=== PATIENT | female | born 1940 | race Caucasian/White ===

== ENCOUNTER → 2017-02-18 | Outpatient (CLI) | payer MEDICARE, BC ==
--- NOTE | 2017-02-18 16:43 | BD ---
EXAMINATION TYPE: MG DEXA axial skeleton. DATE OF EXAM: 02/18/2017 3:20 PM COMPARISON: NONE CLINICAL HISTORY: 76-year-old female osteoporosis Height: 61.75 Weight: 161.9 FRAX RISK QUESTIONS: Alcohol (3 or more units per day): no Family History (Parent hip fracture): no Glucocorticoids (More than 3mos): no (Ex: prednisone, prednisolone, methylprednisolone, dexamethasone, and hydrocortisone). History of Fracture in Adulthood: yes Secondary Osteoporosis: 1. Type 1 Diabetes: no 2. Hyperthyroidism: no 3. Menopause before 45: yes 4. Malnutrition: no 5. Chronic liver disease: no Rheumatoid Arthritis: yes Current Tobacco Use: no/ stopped 3 years RISK FACTORS HISTORY OF: Hip Fracture (Right/Left): no Spine Fracture: no History of Wrist Fracture: no Surgery to Spine/Hip(right/left)/Wrist (right/left): lumbar spine surgery 30 years ago [id number] Family History of Osteoporosis: no Active: yes Diet low in dairy products/other sources of calcium: no Postmenopausal woman: age 39 Lost more than 2 inches in height since high school: yes Frequent falls: no Poor Health: no Adrenal Insufficiency: no MEDICATIONS: blood pressure, sleep aid, vitamins Additional History: EXAM MEASUREMENTS: Bone mineral densitometry was performed using the [employer] System. Bone mineral density as measured about the Lumbar spine is: ----- L1-L4(G/cm2): 1.394 T Score Values are as follows: ----- L2: 1.7 ----- L3: 1.4 ----- L4: 1.9 ----- L1-L4: 1.8 Bone mineral density has: decreased -4.2 % since study of: 02.18.2013 Bone mineral density about the R hip (g/cm2): 0.777 Bone mineral density about the L hip (g/cm2): 0.760 T Score values are as follows: -----R Neck: -1.9 -----L Neck: -2.0 -----R Intertrochanter: -2.8 -----L Intertrochanter: -2.6 Bone mineral density has: decreased-4.4 % since study of: 02.18.2013 IMPRESSION: Osteopenia as indicated by T score values in both hips. There is slightly increased risk of fracture and the patient may be considered for treatment. Re-Screen 2-5 years. NOTE: T-SCORE=SD OF THE YOUNG ADULT MEAN.
--- NOTE | 2017-02-21 13:13 | MM ---
Reason for exam: screening (asymptomatic). Last mammogram was performed 1 year and 1 month ago. History: Patient is postmenopausal. Physical Findings: A clinical breast exam by your physician is recommended on an annual basis and results should be correlated with mammographic findings. MG Screening Mammo w CAD Bilateral CC and MLO view(s) were taken. Prior study comparison: January 13, 2016, bilateral MG screening mammo w CAD. January 07, 2015, bilateral MG screening mammo w CAD. November 16, 2012, bilateral digital screening mammo w/CAD. There are scattered fibroglandular densities. No significant changes when compared with prior studies. ASSESSMENT: Negative, BI-RAD 1 RECOMMENDATION: Routine screening mammogram of both breasts in 1 year.
== END | disposition home or self-care (01) ==
LOC: RADMAMWWP 14:27
PROVIDERS: ATTEND Obstetrics & Gynecology
DX: Z12.31 Encounter for screening mammogram for malignant neoplasm of breast (principal); M85.80 Other specified disorders of bone density and structure, unspecified site
CPT/HCPCS: 77080; G0202

== ENCOUNTER → 2017-06-07 | Outpatient (CLI) | payer MEDICARE, BC ==
--- NOTE | 2017-06-07 11:42 | FL ---
COMPARISON: NONE DATE OF EXAM: 06/07/2017 HISTORY: Dysphasia A number of thin and thick substances were ingested under the care of the department of speech pathol ogy. There is deep penetration with thin barium and a trace of aspiration. Significant residuals are noted. Fluoroscopy time 1 minute 39 seconds. IMPRESSION: 1. Deep penetration with thin barium and a trace of aspiration.
== END | disposition home or self-care (01) ==
LOC: RADFLMAIN 10:53
PROVIDERS: ATTEND Surgery
DX: R13.10 Dysphagia, unspecified (principal)
CPT/HCPCS: 74230

== ENCOUNTER → 2017-07-11 | Outpatient (CLI) | payer MEDICARE, BC ==
[2017-07-11 10:40] LABS: Basophils # (A) 0.1 k/uL (0-0.2); Basophils % (A) 1 %; CH 28.2; CHCM 32.5; Eosinophils # (A) 0.3 k/uL (0-0.7); Eosinophils % (A) 4 %; HCT 40.6 % (34.0-46.0); HDW 2.65; HGB 13.1 gm/dL (11.4-16.0); Luc # (Auto) 0.18; Luc % (Auto) 2; Lymphocytes # (A) 1.6 k/uL (1.0-4.8); Lymphocytes % (A) 18 %; MCHC 32.2 g/dL (31.0-37.0); MCV 87.1 fL (80.0-100.0); Mean Platelet Volume 6.9; Monocytes # (A) 0.6 k/uL (0-1.0); Monocytes % (A) 6 %; Neutrophils # (A) 6.1 k/uL (1.3-7.7); Neutrophils % (A) 70 %; RBC 4.66 m/uL (3.80-5.40); RDW 14.5 % (11.5-15.5); WBC 8.8 k/uL (3.8-10.6); WBC (Perox) 8.61
[2017-07-11 12:54] LABS: Erythrocyte Sedimentation Rate 28 mm/hr (0-20)
== END | disposition home or self-care (01) ==
LOC: LABWHC1 09:27
PROVIDERS: ATTEND Physical Medicine & Rehabilitation
DX: M19.011 Primary osteoarthritis, right shoulder (principal); M19.012 Primary osteoarthritis, left shoulder; M48.06 Spinal stenosis, lumbar region; M43.16 Spondylolisthesis, lumbar region; M51.16 Intervertebral disc disorders with radiculopathy, lumbar region; M47.817 Spondylosis without myelopathy or radiculopathy, lumbosacral region; M41.86 Other forms of scoliosis, lumbar region; M46.1 Sacroiliitis, not elsewhere classified; R20.2 Paresthesia of skin
CPT/HCPCS: 36415; 85025; 85652; 86140

== ENCOUNTER → 2017-11-23 | Outpatient (CLI) | payer MEDICARE, BC ==
--- NOTE | 2017-11-23 12:18 | FL ---
EXAMINATION TYPE: FL barium swallow w video DATE OF EXAM: 11/23/2017 MODIFIED SWALLOW / DEGLUTITION STUDY CLINICAL HISTORY: Known oculopharyngeal dystrophy. TECHNIQUE: Deglutition study is performed utilizing thin liquid barium, honey and nectar thick liqui d barium, barium thick pudding, and barium coated cracker. A total of 2.24 minutes of fluoroscopic ti me was utilized during procedure. Approximately 15 cine sequences are acquired, 0 however are sent to PACS station. COMPARISON: Prior swallow study report June 07, 2017.. FINDINGS: The oral phase shows satisfactory initiation. There is satisfactory mastication seen with s olid modalities tested. There is markedly abnormal hypopharyngeal phase as there is poor to absent e piglottic inversion. Severe pharyngeal residuals are seen more prominent with more viscous modalities . There is deep penetration through vocal cords which clears with thin liquid barium and solid modali ties. Findings do not improve or are worse with chin tuck procedure. No pasquale aspiration is seen. IMPRESSION: Findings correlate with patient history as there is severe hypopharyngeal dysmotility cau sing severe residuals and penetration without pasquale aspiration. Please refer to speech therapist notes for further details if necessary.
== END | disposition home or self-care (01) ==
LOC: RADFLMAIN 11:15
PROVIDERS: ATTEND Psychiatry & Neurology Neurology
DX: J39.2 Other diseases of pharynx (principal)
CPT/HCPCS: 74230

== ENCOUNTER 2018-04-17 10:32 | Emergency (ER) | payer MEDICARE, BC ==
--- NOTE | 2018-04-17 12:05 | ED ---
Extremity Problem HPI - General Chief complaint: Extremity Problem,Nontraumatic Stated complaint: lt leg swelling Time Seen by Provider: 04/17/18 11:02 Source: patient Mode of arrival: wheelchair Limitations: no limitations - History of Present Illness Initial comments: The patient is a 77-year-old female who presents with a chief complaint of left lower extremity swelling. 5-6 weeks ago, the patient sustained a pelvic fracture that was found on MRI. Patient states that she has a venous duplex scheduled however she does not think that she will be able to wait for her appointment. Patient states that she is having sharp, and aching pain in the lower extremity. She cannot identify an inciting incident. There are no aggravating or alleviating factors. Timing is been constant for 3 weeks. Patient does not have any history of DVTs or PEs. She is not on any blood thinners. - Related Data Home Medications Medication Instructions Recorded Confirmed Amitriptyline HCl [Elavil] 50 mg PO HS 01/26/16 04/17/18 Hydrochlorothiazide [Hydrodiuril] 25 mg PO DAILY 01/26/16 04/17/18 amLODIPine BESYLATE [Norvasc] 10 mg PO DAILY 01/26/16 04/17/18 Aspirin EC [Ecotrin Low Dose] 81 mg PO DAILY 04/17/18 04/17/18 Cholecalciferol [Vitamin D3] 1,000 unit PO DAILY 04/17/18 04/17/18 Escitalopram [Lexapro] 5 mg PO DAILY 04/17/18 04/17/18 Glucosamine/[place] A Sod [[place] 1 tab PO DAILY 04/17/18 04/17/18 Bi-Flex Caplet] Hydrocodone/Acetaminophen [[place] 1 tab PO TID PRN 04/17/18 04/17/18 5-325] Metoprolol Succinate (ER) [Toprol 25 mg PO DAILY 04/17/18 04/17/18 Xl] Previous Rx's Medication Instructions Recorded Cephalexin [Keflex] 500 mg PO BID #20 cap 04/17/18 Allergies Allergy/AdvReac Type Severity Reaction Status Date / Time Sulfa (Sulfonamide Allergy Unknown Verified 04/17/18 11:32 Antibiotics) terbinafine [From Lamisil] Allergy Unknown Verified 04/17/18 11:32 Review of Systems ROS Statement: Those systems with pertinent positive or pertinent negative responses have been documented in the HPI. ROS Other: All systems not noted in ROS Statement are negative. Musculoskeletal: Reports: joint swelling Hematological/Lymphatic: Reports: easy bruising Past Medical History Past Medical History: Hypertension Additional Past Medical History / Comment(s): migraines History of Any Multi-Drug Resistant Organisms: None Reported Past Surgical History: Back Surgery, Hysterectomy, Orthopedic Surgery, Tonsillectomy Additional Past Surgical History / Comment(s): eye lid surgery, right shoulder Past Psychological History: No Psychological Hx Reported Smoking Status: Former smoker Past Alcohol Use History: Rare Past Drug Use History: None Reported General Exam Limitations: no limitations General appearance: alert, in no apparent distress Head exam: Present: atraumatic, normocephalic Eye exam: Present: normal appearance ENT exam: Present: normal exam Neck exam: Present: normal inspection Respiratory exam: Present: normal lung sounds bilaterally. Absent: respiratory distress, wheezes Cardiovascular Exam: Present: regular rate, normal rhythm GI/Abdominal exam: Present: soft. Absent: distended, tenderness Rectal exam: Present: deferred Extremities exam: Present: pedal edema, other (Patient has what appears to be a blood blister on the left medial aspect of her lower extremity. The surrounding area is erythematous. There is no fluctuance noted.) Back exam: Present: normal inspection Neurological exam: Present: alert, oriented X3 Psychiatric exam: Present: normal affect, normal mood Course Vital Signs 04/17/18 04/17/18 10:36 12:13 Temperature 98.3 F Pulse Rate 88 84 Respiratory 20 18 Rate Blood Pressure 127/72 152/70 O2 Sat by Pulse 98 98 Oximetry Medical Decision Making - Medical Decision Making Patient presents with a chief complaint of left lower extremity edema. On initial evaluation, vitals are stable, patient is in no acute distress. Patient has a history of a recent pelvic fracture, but states her pain is getting better. She is ambulatory. Patient will be evaluated with venous duplex of the left lower extremity. 1:40 PM Lab evaluation this patient is unremarkable except for a mild leukocytosis. Lower extremity Dopplers do not show any evidence of DVT however there is some inflammatory skin changes noted. At this time, the patient is stable for discharge. She was prescribed Keflex for treatment of suspected cellulitis. She was instructed to follow up with primary care in 1-2 days, return to the emergency department if symptoms worsen or change. - Lab Data Result diagrams: 04/17/18 12:12 04/17/18 12:12 Lab Results 04/17/18 04/17/18 04/17/18 Range/Units 12:12 12:12 12:12 WBC 11.0 H (3.8-10.6) k/uL RBC 3.90 (3.80-5.40) m/uL Hgb 11.1 L (11.4-16.0) gm/dL Hct 32.9 L (34.0-46.0) % MCV 84.5 (80.0-100.0) fL MCH 28.5 (25.0-35.0) pg MCHC 33.8 (31.0-37.0) g/dL RDW 16.0 H (11.5-15.5) % Plt Count 414 (150-450) k/uL Neutrophils % 69 % Lymphocytes % 20 % Monocytes % 7 % Eosinophils % 2 % Basophils % 1 % Neutrophils # 7.6 (1.3-7.7) k/uL Lymphocytes # 2.2 (1.0-4.8) k/uL Monocytes # 0.7 (0-1.0) k/uL Eosinophils # 0.2 (0-0.7) k/uL Basophils # 0.1 (0-0.2) k/uL Anisocytosis Slight PT 11.0 (9.0-12.0) sec INR 1.1 (<1.2) Sodium 137 (137-145) mmol/L Potassium 3.7 (3.5-5.1) mmol/L Chloride 98 (98-107) mmol/L Carbon Dioxide 26 (22-30) mmol/L Anion Gap 13 mmol/L BUN 11 (7-17) mg/dL Creatinine 0.51 L (0.52-1.04) mg/dL Est GFR (CKD-EPI)AfAm >90 (>60 ml/min/1.73 sqM) Est GFR (CKD-EPI)NonAf >90 (>60 ml/min/1.73 sqM) Glucose 106 H (74-99) mg/dL Calcium 9.4 (8.4-10.2) mg/dL Disposition Clinical Impression: Cellulitis Disposition: HOME SELF-CARE Condition: Good Prescriptions: Cephalexin [Keflex] 500 mg PO BID #20 cap Is patient prescribed a controlled substance at d/c from ED?: No Referrals: Kamari Mayfield DO [Primary Care Provider] - 1-2 days
[2018-04-17 12:30] LABS: Anisocytosis Slight; Basophils # (A) 0.1 k/uL (0-0.2); Basophils % (A) 1 %; Eosinophils # (A) 0.2 k/uL (0-0.7); Eosinophils % (A) 2 %; HCT 32.9 % (34.0-46.0); HGB 11.1 gm/dL (11.4-16.0); Lymphocytes # (A) 2.2 k/uL (1.0-4.8); Lymphocytes % (A) 20 %; MCH 28.5 pg (25.0-35.0); MCHC 33.8 g/dL (31.0-37.0); MCV 84.5 fL (80.0-100.0); Mean Platelet Volume 6.8; Monocytes # (A) 0.7 k/uL (0-1.0); Monocytes % (A) 7 %; Neutrophils # (A) 7.6 k/uL (1.3-7.7); Neutrophils % (A) 69 %; Platelet Count 414 k/uL (150-450)
[2018-04-17 12:39] LABS: Anion Gap 13 mmol/L; Blood Urea Nitrogen 11 mg/dL (7-17); Calcium 9.4 mg/dL (8.4-10.2); Carbon Dioxide 26 mmol/L (22-30); Chloride 98 mmol/L (98-107); Glucose 106 mg/dL (74-99); INR 1.1 (<1.2); Potassium 3.7 mmol/L (3.5-5.1); Sodium 137 mmol/L (137-145)
--- NOTE | 2018-04-17 13:07 | US ---
EXAMINATION TYPE: US venous doppler duplex LE LT DATE OF EXAM: 04/17/2018 12:36 PM COMPARISON: NONE CLINICAL HISTORY: 77-year-old female Pain. SIDE PERFORMED: Left TECHNIQUE: The lower extremity deep venous system is examined utilizing real time linear array sonog arelis with graded compression, doppler sonography and color-flow sonography. VESSELS IMAGED: External Iliac Vein (EIV) Common Femoral Vein Deep Femoral Vein Greater Saphenous Vein * Femoral Vein Popliteal Vein Small Saphenous Vein * Proximal Calf Veins (* superficial vessels) Left Leg: Negative for DVT Extensive subcutaneous edema left calf. IMPRESSION: No evidence for DVT within the left lower extremity imaged from the groin to the upper calf. Prominen t subcutaneous edema involving the left calf.
[2018-04-17 13:51] VITALS: BP 148/72; PULSE 80; RESP 16; TEMP 97.6
== END 2018-04-17 14:00 | disposition home or self-care (01) ==
LOC: EC 10:32
DX: L03.116 Cellulitis of left lower limb (principal); D72.829 Elevated white blood cell count, unspecified; I10 Essential (primary) hypertension; Z87.891 Personal history of nicotine dependence; Z79.82 Long term (current) use of aspirin; Z79.899 Other long term (current) drug therapy; Z88.2 Allergy status to sulfonamides; Z88.1 Allergy status to other antibiotic agents
CPT/HCPCS: 36415; 80048; 85025; 85610; 99284

== ENCOUNTER 2018-05-02 20:45 | Emergency (ER) | payer MEDICARE, BC ==
[2018-05-02 20:54] VITALS: RESP 18
[2018-05-02 21:42] LABS: Anisocytosis Slight; Basophils % (A) 1 %; Eosinophils # (A) 0.4 k/uL (0-0.7); Eosinophils % (A) 4 %; HCT 35.6 % (34.0-46.0); HGB 11.3 gm/dL (11.4-16.0); Lymphocytes # (A) 2.4 k/uL (1.0-4.8); Lymphocytes % (A) 27 %; MCH 27.5 pg (25.0-35.0); MCHC 31.7 g/dL (31.0-37.0); MCV 86.8 fL (80.0-100.0); Mean Platelet Volume 6.8; Monocytes # (A) 0.5 k/uL (0-1.0); Monocytes % (A) 6 %; Neutrophils # (A) 5.5 k/uL (1.3-7.7); Neutrophils % (A) 61 %; Platelet Count 378 k/uL (150-450); RDW 16.3 % (11.5-15.5)
[2018-05-02 21:54] LABS: ALT 22 U/L (9-52); AST 26 U/L (14-36); Albumin 4.1 g/dL (3.5-5.0); Alkaline Phosphatase 126 U/L (38-126); Anion Gap 13 mmol/L; Blood Urea Nitrogen 12 mg/dL (7-17); Calcium 9.7 mg/dL (8.4-10.2); Carbon Dioxide 26 mmol/L (22-30); Chloride 99 mmol/L (98-107); Glucose 106 mg/dL (74-99); Potassium 3.4 mmol/L (3.5-5.1); Sodium 138 mmol/L (137-145); Total Bilirubin 0.4 mg/dL (0.2-1.3); Total Protein 6.6 g/dL (6.3-8.2)
--- NOTE | 2018-05-02 22:47 | ED ---
Extremity Problem HPI - General Chief complaint: Extremity Problem,Nontraumatic Stated complaint: leg swelling Time Seen by Provider: 05/02/18 21:08 Source: patient Mode of arrival: wheelchair Limitations: no limitations - History of Present Illness Initial comments: This is a 78-year-old female who presents emergency department for left lower extremity swelling and mild redness. She states that she also noticed a little bit of kamari colored drainage from the wound on the medial aspect of her left lower leg. She was seen here a few weeks ago and given Keflex which she states improved the redness for a period and then it returned. She has been following with her primary doctor he was instructed her to use compression stockings for her edema in her lower extremity and also local wound care. She denies any fevers or chills. No significant increase in pain. No injuries. The patient did have a Doppler few weeks ago which was negative for DVT. - Related Data Home Medications Medication Instructions Recorded Confirmed Amitriptyline HCl [Elavil] 50 mg PO HS 01/26/16 05/02/18 Hydrochlorothiazide [Hydrodiuril] 25 mg PO DAILY 01/26/16 05/02/18 amLODIPine BESYLATE [Norvasc] 10 mg PO DAILY 01/26/16 05/02/18 Aspirin EC [Ecotrin Low Dose] 81 mg PO DAILY 04/17/18 05/02/18 Cholecalciferol [Vitamin D3] 1,000 unit PO DAILY 04/17/18 05/02/18 Escitalopram [Lexapro] 5 mg PO DAILY 04/17/18 05/02/18 Hydrocodone/Acetaminophen [[place] 1 tab PO TID PRN 04/17/18 05/02/18 5-325] Metoprolol Succinate (ER) [Toprol 25 mg PO DAILY 04/17/18 05/02/18 Xl] Previous Rx's Medication Instructions Recorded Clindamycin [Cleocin] 600 mg PO TID 7 Days #84 capsule 05/02/18 Allergies Allergy/AdvReac Type Severity Reaction Status Date / Time Sulfa (Sulfonamide Allergy Unknown Verified 05/02/18 21:48 Antibiotics) terbinafine [From Lamisil] Allergy Unknown Verified 05/02/18 21:48 Review of Systems ROS Statement: Those systems with pertinent positive or pertinent negative responses have been documented in the HPI. ROS Other: All systems not noted in ROS Statement are negative. Past Medical History Past Medical History: Hypertension Additional Past Medical History / Comment(s): migraines History of Any Multi-Drug Resistant Organisms: None Reported Past Surgical History: Back Surgery, Hysterectomy, Orthopedic Surgery, Tonsillectomy Additional Past Surgical History / Comment(s): eye lid surgery, right shoulder Past Psychological History: No Psychological Hx Reported Smoking Status: Former smoker Past Alcohol Use History: Occasional Past Drug Use History: None Reported General Exam - General Exam Comments Initial Comments: Constitutional: Awake alert Appears comfortable Head: Normocephalic atraumatic Eyes: no conjunctival injection No scleral icterus EOMI Neck: No JVD Supple Heart: Regular rate rhythm normal S1-S2 no murmurs Lungs: Clear to auscultation bilaterally No wheezing No rales Abdomen: Soft nondistended nontender Extremities: Is pitting edema to bilateral lower extremities. Worse on the left. There is a circular ulceration to the medial aspect of the left lower extremity that measures approximate 4 cm in length. There is an overlying eschar to this area. There is no drainage. There is no fluctuance or induration. There is a mild amount of erythema and warmth around this however this extends minimally around the lesion. DP pulses intact Radial pulses intact Neuro: A&Ox3 No focal neurologic deficits Psych: Appropriate mood and affect Limitations: no limitations Course Vital Signs 05/02/18 05/02/18 20:49 23:09 Temperature 98.3 F 97.0 F L Pulse Rate 89 98 Respiratory 18 18 Rate Blood Pressure 154/68 148/87 O2 Sat by Pulse 97 99 Oximetry Medical Decision Making - Medical Decision Making Is a 78-year-old female who presented for left lower Chev[place] swelling and redness. The patient does appear to have some increasing redness to that left lower extremity. I'm going to start on clindamycin GERD was on a course of Keflex. There is no leukocytosis. The patient has very minimal redness and thus I do not feel that admission is warranted at this time. She does need local wound care to be performed. I did give her instructions on how to perform this at bedside. She was told to follow-up with Dr. Cantu to see if she could get into wound care clinic. She's can follow-up with Dr. Mayfield as well. Instructed to use compression stockings and how to use them. All questions were answered. - Lab Data Result diagrams: 05/02/18 21:19 05/02/18 21:19 Lab Results 05/02/18 05/02/18 Range/Units 21:19 21:19 WBC 9.0 (3.8-10.6) k/uL RBC 4.10 (3.80-5.40) m/uL Hgb 11.3 L (11.4-16.0) gm/dL Hct 35.6 (34.0-46.0) % MCV 86.8 (80.0-100.0) fL MCH 27.5 (25.0-35.0) pg MCHC 31.7 (31.0-37.0) g/dL RDW 16.3 H (11.5-15.5) % Plt Count 378 (150-450) k/uL Neutrophils % 61 % Lymphocytes % 27 % Monocytes % 6 % Eosinophils % 4 % Basophils % 1 % Neutrophils # 5.5 (1.3-7.7) k/uL Lymphocytes # 2.4 (1.0-4.8) k/uL Monocytes # 0.5 (0-1.0) k/uL Eosinophils # 0.4 (0-0.7) k/uL Basophils # 0.0 (0-0.2) k/uL Anisocytosis Slight Sodium 138 (137-145) mmol/L Potassium 3.4 L (3.5-5.1) mmol/L Chloride 99 (98-107) mmol/L Carbon Dioxide 26 (22-30) mmol/L Anion Gap 13 mmol/L BUN 12 (7-17) mg/dL Creatinine 0.52 (0.52-1.04) mg/dL Est GFR (CKD-EPI)AfAm >90 (>60 ml/min/1.73 sqM) Est GFR (CKD-EPI)NonAf >90 (>60 ml/min/1.73 sqM) Glucose 106 H (74-99) mg/dL Calcium 9.7 (8.4-10.2) mg/dL Total Bilirubin 0.4 (0.2-1.3) mg/dL AST 26 (14-36) U/L ALT 22 (9-52) U/L Alkaline Phosphatase 126 (38-126) U/L Total Protein 6.6 (6.3-8.2) g/dL Albumin 4.1 (3.5-5.0) g/dL Disposition Clinical Impression: Cellulitis, Chronic wound of extremity Disposition: HOME SELF-CARE Condition: Stable Instructions: Wound Infection (ED), Chronic Wound Care (ED) Prescriptions: Clindamycin [Cleocin] 600 mg PO TID 7 Days #84 capsule Is patient prescribed a controlled substance at d/c from ED?: No Referrals: Kamari Mayfield DO [Primary Care Provider] - 1-2 days Saw Cantu MD [STAFF PHYSICIAN] - 1-2 days
[2018-05-02 23:13] VITALS: BP 148/87; PULSE 98; TEMP 97
== END 2018-05-02 23:12 | disposition home or self-care (01) ==
LOC: EC 20:45
DX: S81.802A Unspecified open wound, left lower leg, initial encounter (principal); L03.116 Cellulitis of left lower limb; R60.0 Localized edema; I10 Essential (primary) hypertension; Z87.891 Personal history of nicotine dependence; Z79.82 Long term (current) use of aspirin; Z79.899 Other long term (current) drug therapy; Z88.2 Allergy status to sulfonamides; Z88.8 Allergy status to other drugs, medicaments and biological substances
CPT/HCPCS: 36415; 80053; 85025; 99283

== ENCOUNTER 2018-12-13 10:44 | Inpatient (IN) | payer MEDICARE, BC ==
[2018-12-13] MEDS ORDERED: HYDROcodone/APAP 5-325MG 1 EACH TAB PO STA (11:27)
--- NOTE | 2018-12-13 11:35 | ED ---
General Adult HPI - General Chief complaint: Fall Stated complaint: Fall Time Seen by Provider: 12/13/18 10:58 Source: patient, RN notes reviewed Mode of arrival: wheelchair Limitations: no limitations - History of Present Illness Initial comments: 78-year-old female presents to the emergency department for a chief complaint of low back pain times one day. Patient states she slipped on ceramic tile and fell onto her buttock. Patient did not hit her head. Patient states her low back and tailbone hurts. She states she generally has low back pain and sees a pain specialist Dr. Vasquez for this. Patient takes [place] at home for pain. She states the pain is worsened since this fall. Patient states she is able to ambulate but it is painful to go from sitting to standing. Patient denies any numbness or tingling of the groin her buttock. Patient denies any bladder or bowel changes. Patient denies any shooting pain down the lower extremities or numbness or tingling down the lower extremity. Denies any lower extremity weakness. Patient states last [place] was over 4 hours ago. Patient has no other complaints at this time including shortness of breath, chest pain, abdominal pain, nausea or vomiting, headache, or visual changes. - Related Data Home Medications Medication Instructions Recorded Confirmed Amitriptyline HCl [Elavil] 50 mg PO HS 01/26/16 12/13/18 Hydrochlorothiazide [Hydrodiuril] 25 mg PO DAILY 01/26/16 12/13/18 amLODIPine BESYLATE [Norvasc] 10 mg PO DAILY 01/26/16 12/13/18 Cholecalciferol [Vitamin D3] 1,000 unit PO DAILY 04/17/18 12/13/18 Escitalopram [Lexapro] 5 mg PO DAILY 04/17/18 12/13/18 Hydrocodone/Acetaminophen [[place] 1 tab PO TID PRN 04/17/18 12/13/18 5-325] Metoprolol Succinate (ER) [Toprol 25 mg PO DAILY 04/17/18 12/13/18 Xl] Allergies Allergy/AdvReac Type Severity Reaction Status Date / Time Sulfa (Sulfonamide Allergy Unknown Verified 12/13/18 11:22 Antibiotics) terbinafine [From Lamisil] Allergy Unknown Verified 12/13/18 11:22 Review of Systems ROS Statement: Those systems with pertinent positive or pertinent negative responses have been documented in the HPI. ROS Other: All systems not noted in ROS Statement are negative. Past Medical History Past Medical History: Hypertension Additional Past Medical History / Comment(s): migraines,lt. leg wound History of Any Multi-Drug Resistant Organisms: None Reported Past Surgical History: Back Surgery, Hysterectomy, Orthopedic Surgery, Tonsillectomy Additional Past Surgical History / Comment(s): eye lid surgery, right shoulder Past Psychological History: No Psychological Hx Reported Smoking Status: Former smoker Past Alcohol Use History: Occasional Past Drug Use History: None Reported General Exam Limitations: no limitations General appearance: alert, in no apparent distress Head exam: Present: atraumatic, normocephalic, normal inspection Eye exam: Present: normal appearance, PERRL, EOMI. Absent: scleral icterus, conjunctival injection, periorbital swelling ENT exam: Present: normal exam, mucous membranes moist Neck exam: Present: normal inspection, full ROM. Absent: tenderness, meningismus, lymphadenopathy Respiratory exam: Present: normal lung sounds bilaterally. Absent: respiratory distress, wheezes, rales, rhonchi, stridor Cardiovascular Exam: Present: regular rate, normal rhythm, normal heart sounds. Absent: systolic murmur, diastolic murmur, rubs, gallop, clicks GI/Abdominal exam: Present: soft, normal bowel sounds. Absent: distended, tenderness, guarding, rebound, rigid, other (no ecchymosis or evidence of trauma ) Extremities exam: Present: normal capillary refill (Capillary refill less than 2 seconds and DP pulse 2+ and equal bilaterally), other (Sensation intact in BLE bilaterally, strength 5 out of 5 in lower extremities bilaterally) Back exam: Present: vertebral tenderness (Tenderness over the lower lumbar spine and sacral area). Absent: paraspinal tenderness, other (No ecchymosis or hematomas noted) Neurological exam: Present: alert, oriented X3, CN II-XII intact Psychiatric exam: Present: normal affect, normal mood Course Vital Signs 12/13/18 12/13/18 10:47 16:13 Temperature 98.1 F Pulse Rate 90 70 Respiratory 18 16 Rate Blood Pressure 133/59 120/58 O2 Sat by Pulse 98 94 L Oximetry - Reevaluation(s) Reevaluation #1: 12/13/18 17:20 Multiple conversations were facilitated between both MRI and and Dr. Lozano's office. Discussed with Karyna from MRI and is she spoke with Dr. Lozano's office personally. Unable to locate lot number of ear implant. She states that many of these similar ear implants are unsafe for MRI and without being able to obtain lot number patient cannot safely have this MRI. She states that they will be going through medical records from 1991 when ear implant was placed tomorrow to try to obtain more information. Patient does believe she had an MRI within the past few years 12/13/18 17:26 Dr. Rodriguez unable to document in the chart at this time due to computer malfunctions. However he did page Dr. Mayfield at 1620, 1630, and 1703. Dr. Mayfield was notified by phone of this admission. Dr. Rodriguez also spoke with JARED De Leon for orthopedics. At this time she recommends admission for observation with consult to Dr. Kraft. She does recommend medical admission. Medical Decision Making - Medical Decision Making 78-year-old female presents to the emergency department for a chief complaint of fall occurring yesterday. Patient complains of lumbar back pain as well as "tailbone pain." On exam patient is weightbearing. Does have some lumbar spine tenderness and sacral tenderness. CT pelvis shows subacute to chronic incompletely united fractures of pubic rami which patient states happened 10 years ago. There is also focal cortical angulation along the right femoral neck which could represent a subtle nondisplaced femoral neck fracture. I did reexamine the patient and she does have pain with flexion and external rotation of the right hip. She is limping on the right hip somewhat. Radiology recommends considering MRI for a more sensitive evaluation. I did attempt to facilitate this MRI however patient has an implant in her ear. Multiple conversations were facilitated between ENT doctor Blake's office in order to obtain lot number for clearance for MRI but this was unsuccessful. At this time given possibility of hip fracture and unable to obtain MRI patient will be admitted for further management with consultation to orthopedics. Patient also has a coccygeal fracture as well. This is age indeterminate but given this is where patient's pain is this is likely acute. - Lab Data Result diagrams: 12/13/18 13:49 12/13/18 13:49 Lab Results 12/13/18 12/13/18 Range/Units 13:49 13:49 WBC 10.0 (3.8-10.6) k/uL RBC 4.29 (3.80-5.40) m/uL Hgb 12.1 (11.4-16.0) gm/dL Hct 37.6 (34.0-46.0) % MCV 87.7 (80.0-100.0) fL MCH 28.3 (25.0-35.0) pg MCHC 32.2 (31.0-37.0) g/dL RDW 14.8 (11.5-15.5) % Plt Count 362 (150-450) k/uL Neutrophils % 63 % Lymphocytes % 24 % Monocytes % 6 % Eosinophils % 5 % Basophils % 1 % Neutrophils # 6.3 (1.3-7.7) k/uL Lymphocytes # 2.4 (1.0-4.8) k/uL Monocytes # 0.6 (0-1.0) k/uL Eosinophils # 0.5 (0-0.7) k/uL Basophils # 0.1 (0-0.2) k/uL Sodium 136 L (137-145) mmol/L Potassium 4.1 (3.5-5.1) mmol/L Chloride 100 (98-107) mmol/L Carbon Dioxide 27 (22-30) mmol/L Anion Gap 9 mmol/L BUN 12 (7-17) mg/dL Creatinine 0.43 L (0.52-1.04) mg/dL Est GFR (CKD-EPI)AfAm >90 (>60 ml/min/1.73 sqM) Est GFR (CKD-EPI)NonAf >90 (>60 ml/min/1.73 sqM) Glucose 99 (74-99) mg/dL Calcium 9.6 (8.4-10.2) mg/dL Total Bilirubin 0.5 (0.2-1.3) mg/dL AST 35 (14-36) U/L ALT 29 (9-52) U/L Alkaline Phosphatase 105 (38-126) U/L Total Protein 6.8 (6.3-8.2) g/dL Albumin 3.9 (3.5-5.0) g/dL Disposition Clinical Impression: Fractured coccyx, Fracture of right hip Disposition: ADMITTED IP TO THIS HOSP Condition: Good Is patient prescribed a controlled substance at d/c from ED?: No Referrals: Kamari Mayfield DO [Primary Care Provider] - 1-2 days Time of Disposition: 17:22
--- NOTE | 2018-12-13 12:00 | CT ---
EXAMINATION TYPE: CT lumbar spine wo con DATE OF EXAM: 12/13/2018 COMPARISON: None HISTORY: 78-year-old female with pain after Fall TECHNIQUE: Contiguous axial scanning of the lumbar spine without IV contrast. Coronal and sagittal re constructions performed. CT DLP: 658.6 mGycm Automated exposure control for dose reduction was used. FINDINGS: Moderate to severe atherosclerotic calcifications infrarenal abdominal aorta and iliac arteries. Left common iliac artery is ectatic at 1.7 cm. Degenerated dextroconvex scoliosis of the lumbar spine. Degenerative thinning of the interspinous ligaments with abutment of the spinous processes. Hypertrophic facet arthropathy throughout. Grade 1 anterolisthesis at L3-L4. Advanced degenerative disc disease throughout with bulging discs. Mild spinal canal stenosis at L3-L4. Otherwise, no pasquale canal compromise identified. On the left, changes result in moderate neural foraminal narrowing at L3-L4 and mild at additional le vels. On the right, there is moderate neuroforaminal stenosis at L4-L5 and mild at L5-S1. No acute fracture of the lumbar spine. Vertebral body heights are preserved. IMPRESSION: 1. DEGENERATED SCOLIOSIS, ADVANCED HYPERTROPHIC FACET ARTHROPATHY, ADVANCED MULTILEVEL DEGENERATIVE D ISC DISEASE, AND A DEGENERATIVE GRADE 1 ANTEROLISTHESIS AT L3-L4. 2. BAASTRUP'S DISEASE. 3. NO VERTEBRAL COMPRESSION COLLAPSE OR ACUTE FRACTURE OF THE LUMBAR SPINE SEEN. 4. MILD OVERALL SPINAL CANAL STENOSIS AT L3-L4 AND VARIABLE MILD NEUROFORAMINAL NARROWING, MODERATE O N THE RIGHT AT L4-L5.
--- NOTE | 2018-12-13 12:06 | CT ---
EXAMINATION TYPE: CT pelvis wo con DATE OF EXAM: 12/13/2018 COMPARISON: None HISTORY: 78-year-old female with pain after Fall TECHNIQUE: Contiguous axial scanning of the pelvis without IV contrast. Coronal and sagittal reconstr uctions performed. CT DLP: 269.9 mGycm Automated exposure control for dose reduction was used. FINDINGS: Subacute to chronic incompletely united fractures of the left superior and inferior pubic rami. Severe degenerative changes with axial joint space loss in the right hip and moderate degenerative magnus int space narrowing in the left hip. There is focal cortical angulation along the posterior margin of the right femoral neck, axial image 56. A definite fracture is not confirmed on the reconstructed views. No displaced fractures. There is some focal posterior angulation of the distal coccygeal segment. Degenerative changes of the pubic s ymphysis. SI joints appear intact. Pessary device in place. Right-sided hip joint effusion. IMPRESSION: 1. SUBACUTE TO CHRONIC INCOMPLETELY UNITED FRACTURES OF THE LEFT SUPERIOR AND INFERIOR PUBIC RAMI. CO RRELATE TO HISTORY OF PRIOR TRAUMA. 2. FOCAL CORTICAL ANGULATION ALONG THE POSTERIOR MARGIN OF THE RIGHT FEMORAL NECK COULD REPRESENT A S UBTLE NONDISPLACED FEMORAL NECK FRACTURE OUR COULD REPRESENT A PROMINENT NUTRIENT FORAMEN. THERE IS M ARKED OSTEOPENIA WHICH LIMITS ASSESSMENT. A DEFINITE FEMORAL NECK FRACTURE IS NOT CONFIRMED ON THE OT HER RECONSTRUCTED PLANES. CONSIDER MRI TO PROVIDE MORE SENSITIVE EVALUATION ESPECIALLY IF THE PATIENT IS NOT WEIGHTBEARING. 3. SEVERE DEGENERATIVE CHANGE AT THE RIGHT HIP WITH RIGHT HIP JOINT EFFUSION. 4. POSTERIOR ANGULATION OF THE DISTAL COCCYGEAL SEGMENT SUGGESTS AN AGE INDETERMINATE TAILBONE FRACTU RE.
[2018-12-13] MEDS ORDERED: MORPHINE SULFATE 4 MG/ML SYRINGE IVP STA ×2 (13:08→16:13)
[2018-12-13 15:49] LABS: Basophils # (A) 0.1 k/uL (0-0.2); Basophils % (A) 1 %; Eosinophils # (A) 0.5 k/uL (0-0.7); Eosinophils % (A) 5 %; HCT 37.6 % (34.0-46.0); HGB 12.1 gm/dL (11.4-16.0); Lymphocytes # (A) 2.4 k/uL (1.0-4.8); Lymphocytes % (A) 24 %; MCH 28.3 pg (25.0-35.0); MCHC 32.2 g/dL (31.0-37.0); MCV 87.7 fL (80.0-100.0); Mean Platelet Volume 7.8; Monocytes # (A) 0.6 k/uL (0-1.0); Monocytes % (A) 6 %; Neutrophils # (A) 6.3 k/uL (1.3-7.7); Neutrophils % (A) 63 %; Platelet Count 362 k/uL (150-450); RBC 4.29 m/uL (3.80-5.40); RDW 14.8 % (11.5-15.5)
[2018-12-13 16:00] LABS: ALT 29 U/L (9-52); AST 35 U/L (14-36); Albumin 3.9 g/dL (3.5-5.0); Alkaline Phosphatase 105 U/L (38-126); Anion Gap 9 mmol/L; Blood Urea Nitrogen 12 mg/dL (7-17); Calcium 9.6 mg/dL (8.4-10.2); Carbon Dioxide 27 mmol/L (22-30); Chloride 100 mmol/L (98-107); Glucose 99 mg/dL (74-99); Potassium 4.1 mmol/L (3.5-5.1); Sodium 136 mmol/L (137-145); Total Bilirubin 0.5 mg/dL (0.2-1.3); Total Protein 6.8 g/dL (6.3-8.2)
[2018-12-13] MEDS ORDERED: NALOXONE 0.4 MG/ML 1 ML VIAL IV PRN (17:16)
[2018-12-13] MEDS ORDERED: ONDANSETRON 4 MG/2 ML VIAL IVP PRN (17:16)
[2018-12-13] MEDS: HYDROcodone/APAP 5-325MG 1 EACH TAB PO PRN (18:33)
[2018-12-13] MEDS: SODIUM CHLORIDE 0.9% 1,000 ML IV SCH (21:57)
[2018-12-13] MEDS: AMITRIPTYLINE HCL 50 MG TAB PO SCH (22:00)
[2018-12-13] MEDS: MORPHINE SULFATE 4 MG/ML SYRINGE IV PRN (22:00)
--- NOTE | 2018-12-13 22:03 | XR ---
EXAMINATION TYPE: XR Hip RT and AP Pelvis DATE OF EXAM: 12/13/2018 COMPARISON: NONE HISTORY: Fall. Pain. TECHNIQUE: A single AP view of the pelvis is obtained. Two views of the right hip are obtained. FINDINGS: The bones appear osteopenic. Proximal right femur and hip joint appear intact. There is radha e deformity and thickening of the left superior and inferior pubic rami related to old fractures. I s ee no acute fracture. There is some narrowing of hip joint space. IMPRESSION: Mild osteoarthritis in the right hip joint. No acute fracture seen. Old left pubic rami fractures.
[2018-12-14] MEDS: MORPHINE SULFATE 4 MG/ML SYRINGE IV PRN ×3 (04:18→22:45)
[2018-12-14] MEDS: SODIUM CHLORIDE 0.9% 1,000 ML IV SCH (05:46)
[2018-12-14 09:00] LABS: Basophils % (A) 1 %; Eosinophils # (A) 0.5 k/uL (0-0.7); Eosinophils % (A) 6 %; HCT 34.2 % (34.0-46.0); HGB 11.1 gm/dL (11.4-16.0); Lymphocytes # (A) 1.8 k/uL (1.0-4.8); Lymphocytes % (A) 23 %; MCH 28.7 pg (25.0-35.0); MCHC 32.4 g/dL (31.0-37.0); MCV 88.7 fL (80.0-100.0); Mean Platelet Volume 7.3; Monocytes # (A) 0.6 k/uL (0-1.0); Monocytes % (A) 8 %; Neutrophils # (A) 4.9 k/uL (1.3-7.7); Neutrophils % (A) 61 %; Platelet Count 266 k/uL (150-450); RBC 3.86 m/uL (3.80-5.40); RDW 14.8 % (11.5-15.5)
[2018-12-14 09:08] LABS: Anion Gap 5 mmol/L; Blood Urea Nitrogen 9 mg/dL (7-17); Carbon Dioxide 28 mmol/L (22-30); Chloride 103 mmol/L (98-107); Glucose 92 mg/dL (74-99); Potassium 3.9 mmol/L (3.5-5.1); Sodium 136 mmol/L (137-145)
[2018-12-14] MEDS: amLODIPine 10 MG TAB PO SCH (09:39)
[2018-12-14] MEDS: ESCITALOPRAM 5 MG TAB PO SCH (09:39)
[2018-12-14] MEDS: HYDROCHLOROTHIAZIDE 25 MG TAB PO SCH (09:39)
[2018-12-14] MEDS: METOPROLOL SUCCINATE (ER) 25 MG TAB.ER.24H PO SCH (09:39)
[2018-12-14] MEDS: KETOROLAC 30 MG/ML 1 ML VIAL IVP PRN ×2 (09:39→19:34)
--- NOTE | 2018-12-14 09:53 | P.CNOR ---
History of Present Illness - [facility] Consult date: 12/14/18 Consult reason: other History of present illness: Patient is 78-year-old female who is seen and examined today at bedside. She had a fall 2 days ago onto her bottom and feels significant pain around her tailbone. She has been having great difficulty with her ambulation and mobilization and had to be admitted to the hospital as she is unable to mobilize. She had further imaging and was found to old pubic rami fractures at her pelvis and a possible femoral neck fracture on the right. She denies numbness tingling. She denies weakness in her lower extremity. She denies hitting her head or any loss of consciousness. She denies chest pain or shortness breath. She feels her pain is primarily around her white right gluteal area and at the base of her spine. She is not having pain anteriorly. She denies prior injury at her hip but had pain at her pelvis 20 years ago with her pubic rami fracture Review of Systems Primary pain is in her right gluteal area. No numbness tingling or lower extremity is no chest pain loss consciousness Past Medical History Past Medical History: Cancer, GERD/Reflux, Hypertension, Osteoarthritis (OA) Additional Past Medical History / Comment(s): migraines,past lt. leg wound since healed, skin cancer on nose History of Any Multi-Drug Resistant Organisms: None Reported Past Surgical History: Back Surgery, Cholecystectomy, Hysterectomy, Orthopedic Surgery, Tonsillectomy Additional Past Surgical History / Comment(s): eye lid surgery,james cataracts removed-has lens implants, right shoulder, rt foot 2nd toe pinning done, lt er implant(plantinum wire implant donei in 1991) Past Anesthesia/Blood Transfusion Reactions: No Reported Reaction Additional Past Anesthesia/Blood Transfusion Reaction / Comm: clausterphobia Smoking Status: Former smoker - Past Family History Mother Family Medical History: Hypertension Additional Family Medical History / Comment(s): gout Father Additional Family Medical History / Comment(s): age 59 "heart" Medications and Allergies Home Medications Medication Instructions Recorded Confirmed Type Amitriptyline HCl [Elavil] 50 mg PO HS 01/26/16 12/13/18 History Hydrochlorothiazide [Hydrodiuril] 25 mg PO DAILY 01/26/16 12/13/18 History amLODIPine BESYLATE [Norvasc] 10 mg PO DAILY 01/26/16 12/13/18 History Cholecalciferol [Vitamin D3] 1,000 unit PO DAILY 04/17/18 12/13/18 History Escitalopram [Lexapro] 5 mg PO DAILY 04/17/18 12/13/18 History Hydrocodone/Acetaminophen [[place] 1 tab PO TID PRN 04/17/18 12/13/18 History 5-325] Metoprolol Succinate (ER) [Toprol 25 mg PO DAILY 04/17/18 12/13/18 History Xl] Allergies Allergy/AdvReac Type Severity Reaction Status Date / Time Sulfa (Sulfonamide Allergy Unknown Verified 12/13/18 11:22 Antibiotics) terbinafine [From Lamisil] Allergy Unknown Verified 12/13/18 11:22 Physical Examination Osteopathic Statement: *. No significant issues noted on an osteopathic structural exam other than those noted in the History and Physical/Consult. - Hip right Gait: other Tenderness with palpation: other (Over her right gluteal area at her piriformis she does have some tenderness. There is no ecchymosis or bruising.) ROM: flexion: normal (Her right hip she has full motion. She is able to lift her leg on leg up off the bed with good 5 out of 5 strength. There is no pain with internal and external rotation. Her thigh and calf soft nontender. She has sustained dorsal flexion plantar flexion and EHL intact.) Results - Labs Labs: Abnormal Lab Results - Last 24 Hours (Table) 12/13/18 12/14/18 12/14/18 Range/Units 13:49 08:07 08:07 Hgb 11.1 L (11.4-16.0) gm/dL Sodium 136 L 136 L (137-145) mmol/L Creatinine 0.43 L 0.42 L (0.52-1.04) mg/dL H & H 12/13/18 12/14/18 Range/Units 13:49 08:07 Hgb 12.1 11.1 L (11.4-16.0) gm/dL Hct 37.6 34.2 (34.0-46.0) % Result Diagrams: 12/14/18 08:07 12/14/18 08:07 - Diagnostic results Hip x-ray: report reviewed, image reviewed Hip CT: report reviewed, image reviewed (I reviewed the x-rays of her pelvis and hip as well as a computed tomography scan of her pelvis and hip. The x- rays do not show obvious fracture line. Her computed tomography scan has 1 or 2 views that show a possible cortical defect posteriorly at the femoral neck. ) Assessment and Plan Assessment: Status post fall Posterior right gluteal pain and sacral pain Cortical irregularity at the right femoral neck status post fall, uncertain etiology Plan: Status post fall Posterior right gluteal pain and sacral pain Cortical irregularity at the right femoral neck status post fall, uncertain etiology The patient had a fall and likely has a contusion around her sacrum. On her imaging there is no acute fracture at her sacrum or coccyx. In regards to her sacrum and coccyx and gluteal pain it is okay for her to mobilize and weight- bear as tolerated. However her computed tomography scan also shows possible cortical irregularity at the femoral neck. Clinically she does not have evidence for hip fracture. She is able to mobilize her leg quite well and moved nicely around her hip joint itself. This would not be typical if there were an acute fracture. However the computed tomography scan is quite inconclusive in determining if there is an acute fracture line and I think this needs further workup given the results of the test. She has an implant in her ear and we're still trying to figure out if she is able to have a MRI of her right hip. In lieu of this we could obtain a bone scan of her right hip to see if there is acute change at the femoral neck to indicate fracture. If there is a fracture then she would be a candidate for surgical intervention and possibly percutaneous screw fixation of the femoral neck versus hemiarthroplasty. I think it is prudent to maintain her nonweightbearing status at her right lower extremity and continue pain control while we obtain further workup. Time with Patient: Greater than 30
[2018-12-14] MEDS ORDERED: DIAZEPAM 5 MG TAB PO PRN (09:57)
[2018-12-14] MEDS ORDERED: LORazepam 0.5 MG TAB PO PRN (11:00)
--- NOTE | 2018-12-14 11:29 | XR ---
EXAMINATION TYPE: XR chest 1V portable DATE OF EXAM: 12/14/2018 COMPARISON: 05/19/2016 INDICATION: Short of breath TECHNIQUE: Frontal and lateral views of the chest are obtained. FINDINGS: The heart size is mildly prominent. The pulmonary vasculature is normal. There is some streak opacity in the left base which was present previously. This may be some scarring . Atelectasis be considered. IMPRESSION: 1. Mild cardiomegaly. 2. Scarring versus streak atelectasis posterior basal
--- NOTE | 2018-12-14 11:33 | MR ---
MR right hip HISTORY: Pain, trauma, difficulty walking Multiplanar multisequence imaging obtained through the pelvis with small [id number] high-resolutio n images through the right hip. Correlation to plain film and CT 12/13/2018 there is no evident fracture or dislocation. Probable subc hondral geode present in the acetabular roof on the left. There is marginal spurring in the right hip , subchondral reactive marrow signal changes are present with grade 3 to grade IV chondromalacia, the re is a joint effusion bilaterally. Suspect there are synovial extensions at the medial aspect of the right hip pain containing fluid. There is abnormal signal involving the sacrum centrally corresponding to nondisplaced sacral fracture distally. The coccyx region also shows abnormal signal compatible with patient's history of trauma, probable fracture, there is overlying edema within the soft tissues. Contrast reason place. Urinary bladder is unremarkable. Old left ramus fractures on the left show pro bable chronic appearance. Degenerative disc changes are noted in the visualized spine. Some increased signal present at the origins of the conjoined tendons of the hamstring musculature could be due to strain or small partial tears. Some fluid signal present at the level of the insertion of the gluteus tendon at the greater trochanter on the right could represent a small partial tear or strain. IMPRESSION: Sacrococcygeal fractures. No evident hip fracture. Osteoarthritis. Additional findings ab ove.
[2018-12-14] MEDS: CHOLECALCIFEROL 1,000 UNIT TAB PO SCH (11:50)
[2018-12-14] MEDS: HYDROcodone/APAP 5-325MG 1 EACH TAB PO PRN (11:50)
[2018-12-14 14:36] LABS: Amorphous Sediment,Urine Rare /hpf; Appearance,Urine Cloudy (Clear); Bacteria,Urine Many /hpf; Bilirubin,Urine Negative (Negative); Blood,Urine Small (Negative); Color,Urine Light Yellow; Glucose,Urine (UA) Negative (Negative); Ketones,Urine Negative (Negative); Leukocyte Esterase,Urine Large (Negative); Nitrite,Urine Negative (Negative); PH, Urine 7.5 (5.0-8.0); Protein,Urine Negative (Negative); RBC,Urine 44 /hpf (0-5); Specific Gravity,Urine 1.008 (1.001-1.035); Squamous Epithelial Cell,Urine 1 /hpf (0-4); Urobilinogen,Urine <2.0 mg/dL (<2.0); WBC,Urine 102 /hpf (0-5)
[2018-12-14] MEDS ORDERED: ACETAMINOPHEN TAB 500 MG TAB PO PRN (15:18)
--- NOTE | 2018-12-14 17:14 | HP ---
HISTORY AND PHYSICAL I am covering for Dr. Mayfield. DATE OF SERVICE: 12/14/2018 CHIEF COMPLAINTS: Fall and severe pain. HISTORY OF PRESENT ILLNESS: This 78-year-old woman with a past medical history of multiple medical problems including GERD, history of hypertension, history of DJD, migraines, back surgery , cholecystectomy being followed Dr. Mayfield in the outpatient setting, apparently living with her . The patient apparently had a previous low back pain but apparently slipped on the ceramic tile and fell on her buttock. Patient was unable to get up and apparently was also lying on her trying to get her up and the patient was taken to [facility] and admitted for further evaluation and treatment. The patient also seen pain specialist, Dr. Vasquez. After admission, the patient underwent multiple radiological studies including a lumbar spine CAT scan which showed severe degenerative joint disease and advanced hypertrophic arthropathy, multilevel DJD and [place] disease and mild splenic venous stenosis. Pelvis CAT scan was also done which showed subacute to chronic incomplete united fractures of the left superior, inferior pubic rami and also focal cortical angulation of the postural margin of right femoral neck was noted and severe DJD was also noted. Dr. Kraft saw the patient and concerned about the fractures and hence hip MRI was done. The patient in the meanwhile complaining of some pain in walking also. The MRI showed sacral coccygeal fractures and no evidence of fracture and significant DJD and other findings. Please refer to MRI findings for further details. The patient is being admitted for evaluation and treatment. There is no history any headache, loss of consciousness, chest pain, palpitations, hematochezia or melena at this time. PAST MEDICAL HISTORY: History of DJD, history of hypertension, history of migraine, back surgery, cholecystectomy. MEDICATIONS: Prior to admission include: 1. Norvasc 10 mg p.o. daily. 2. Toprol-XL 25 mg b.i.d. 3. [place] 5 mg t.i.d. p.r.n. 4. HydroDIURIL 25 mg. 5. Lexapro 5 mg. 6. Vitamin D 3000 daily. 7. Elavil 50 mg q.h.s. ALLERGIES: SULFA, LAMISIL. FAMILY HISTORY: History of hypertension, gout. SOCIAL HISTORY: History of alcohol. Remote history of smoking. REVIEW OF SYSTEMS: ENT: No diminished vision. No diminished hearing. Cardiovascular system: No angina. RESPIRATORY: No cough or hemoptysis. GI: No nausea or vomiting. : No dysuria. NERVOUS SYSTEM: No numbness, weakness. ALLERGY/IMMUNOLOGY: No asthma or hayfever. MUSCULOSKELETAL: As mentioned earlier. HEMATOLOGY/ONCOLOGY: No history of anemia. ENDOCRINE: No history of diabetes or hypothyroidism. CONSTITUTIONAL: As mentioned earlier. Dermatology: Negative. Rheumatology: Negative. Psychiatry: As mentioned earlier. PHYSICAL EXAMINATION: GENERAL: Alert and oriented x3. VITAL SIGNS: Pulse 75, blood pressure 111/56, respiration 18, temperature 98.1, pulse ox 98% on room air. HEENT: Conjunctivae normal. Oral mucosa moist. NECK is no jugular venous distention. No carotid bruit. No lymph node enlargement. Cardiovascular system: S1, S2 muffled. Respiration: Breath sounds diminished in the bases. A few scattered rhonchi and crackles. ABDOMEN: Soft, nontender. CENTRAL NERVOUS SYSTEM: No focal deficits. LEGS: No edema. No swelling. Even minimal movements are painful. NERVOUS SYSTEM: Higher functions as mentioned earlier. Moves all 4 limbs. No focal deficits except that the patient is unable to move her legs, pain free and complete neurological exam cannot be carried out. SKIN: No ulcer, rash or bleeding. JOINTS: No active deforming arthropathy. LABS: WBC 8, hemoglobin 11.1, sodium 136. UA showed possible UTI. ASSESSMENT: 1. Fall and possible sacral coccygeal fracture and as well as contusion with severe gait dysfunction and severe pain. 2. Gait dysfunction. 3. Pelvis fractures, possibly old versus recent. 4. Severe degenerative joint disease of the back with mild spinal canal stenosis. 5. Acute urinary tract infection present on admission. 6. History of gastroesophageal reflux disease. 7. Hypertension. 8. History of degenerative joint disease. 9. History of migraines. 10.History of cholecystectomy. 11.History of claustrophobia. 12.Remote history of nicotine dependence. 13.Anemia, normocytic, undetermined etiology. 14.FULL CODE. RECOMMENDATIONS AND DISCUSSION: In this 78-year-old woman who presented with multiple complex medical issues. We will monitor the patient closely. Continue the current medications, management and symptomatic treatment. I would recommend pain medications. MRI ruled out any active fracture of the hip for which orthopedic surgery was concerned, but however the patient has multiple other abnormalities with severe gait dysfunction, severe pain and poor support also. At this time I recommend also PT/OT evaluation, possible ECF rehab. Resume the home medications. DVT prophylaxis. See orders for details. The patient will be in the hospital at least 3-4 days for continued pain control. RUTH / KRANTHI: [id number] / MTDD
[2018-12-14] MEDS ORDERED: ARTIFICIAL TEARS-HYPROMELLOSE DROPS 15 ML BTL BOTH EYES PRN (18:59)
[2018-12-14] MEDS: AMITRIPTYLINE HCL 50 MG TAB PO SCH (22:01)
[2018-12-14] MEDS: HEPARIN SODIUM,PORCINE 5,000 UNIT/ML 1 ML VIAL SQ SCH (22:02)
[2018-12-15] MEDS: SODIUM CHLORIDE 0.9% 1,000 ML IV SCH ×3 (00:16→23:15)
[2018-12-15] MEDS: MORPHINE SULFATE 4 MG/ML SYRINGE IV PRN ×4 (05:14→23:01)
[2018-12-15] MEDS: ESCITALOPRAM 5 MG TAB PO SCH (08:28)
[2018-12-15] MEDS: HYDROCHLOROTHIAZIDE 25 MG TAB PO SCH (08:28)
[2018-12-15] MEDS: amLODIPine 10 MG TAB PO SCH (08:29)
[2018-12-15] MEDS: MULTIVITAMINS, THERA 1 EACH TAB PO SCH (08:29)
[2018-12-15] MEDS: CHOLECALCIFEROL 1,000 UNIT TAB PO SCH (08:29)
[2018-12-15] MEDS: PANTOPRAZOLE 40 MG TABLET PO SCH (08:29)
[2018-12-15] MEDS: HEPARIN SODIUM,PORCINE 5,000 UNIT/ML 1 ML VIAL SQ SCH ×2 (08:29→20:45)
[2018-12-15] MEDS: HYDROcodone/APAP 5-325MG 1 EACH TAB PO PRN ×3 (08:37→20:45)
[2018-12-15] MEDS: METOPROLOL SUCCINATE (ER) 25 MG TAB.ER.24H PO SCH (08:40)
[2018-12-15 09:52] LABS: Basophils % (A) 0 %; Eosinophils # (A) 0.4 k/uL (0-0.7); Eosinophils % (A) 6 %; HCT 37.1 % (34.0-46.0); HGB 11.7 gm/dL (11.4-16.0); Lymphocytes # (A) 1.9 k/uL (1.0-4.8); Lymphocytes % (A) 27 %; MCH 27.9 pg (25.0-35.0); MCHC 31.6 g/dL (31.0-37.0); MCV 88.2 fL (80.0-100.0); Mean Platelet Volume 7.3; Monocytes # (A) 0.4 k/uL (0-1.0); Monocytes % (A) 6 %; Neutrophils % (A) 59 %; Platelet Count 298 k/uL (150-450); RBC 4.21 m/uL (3.80-5.40); RDW 14.7 % (11.5-15.5); WBC 6.9 k/uL (3.8-10.6)
[2018-12-15 09:55] LABS: Anion Gap 9 mmol/L; Blood Urea Nitrogen 7 mg/dL (7-17); Calcium 9.1 mg/dL (8.4-10.2); Carbon Dioxide 24 mmol/L (22-30); Chloride 106 mmol/L (98-107); Glucose 101 mg/dL (74-99); Potassium 3.9 mmol/L (3.5-5.1); Sodium 139 mmol/L (137-145)
--- NOTE | 2018-12-15 12:18 | ECHOF ---
Referral Reason:bigemini MEASUREMENTS -------- HEIGHT: 152.4 cm WEIGHT: 70.3 kg BP: RVIDd: 3.2 cm (< 3.3) IVSd: 1.1 cm (0.6 - 1.1) LVIDd: 3.9 cm (3.9 - 5.3) LVPWd: 1.1 cm (0.6 - 1.1) IVSs: 1.5 cm LVIDs: 2.4 cm LVPWs: 1.6 cm LA Diam: 3.8 cm (2.7 - 3.8) Ao Diam: 2.9 cm (2.0 - 3.7) AV Cusp: 1.6 cm (1.5 - 2.6) LA Diam: 3.9 cm (2.7 - 3.8) EPSS: 0.6 cm MV E Manjinder: 0.50 m/s MV DecT: 273 ms MV A Manjinder: 0.83 m/s MV E/A Ratio: 0.61 AV maxP.22 mmHg AV meanP.34 mmHg RAP: 5.00 mmHg RVSP: 63.23 mmHg MV EF SLOPE: 117.29 mm/s (70 - 150) MV EXCURSION: 0.95 cm (> 18.000) FINDINGS -------- Sinus rhythm. This was a technically adequate study. The left ventricular size is normal. There is mild concentric left ventricular hypertrophy. Overa ll left ventricular systolic function is normal with, an EF between 55 - 60 %. The diastolic fillin g pattern is normal for the age of the patient 5.89. The right ventricle is mildly enlarged. The left atrial size is normal. The right atrial size is normal. There is mild aortic stenosis present. Peak/mean gradient across the Aortic Valve is 18.22mmHg / 8. 34mmHg. Mild mitral annular calcification present. Mild mitral regurgitation is present. Moderate to severe tricuspid regurgitation present. There is moderate pulmonary hypertension. The right ventricular systolic pressure, as measured by Doppler, is 63.23mmHg. There is no pulmonic regurgitation present. The aortic root size is normal. There is no pericardial effusion. CONCLUSIONS -------- 1. The left ventricular size is normal. 2. Overall left ventricular systolic function is normal with, an EF between 55 - 60 %. 3. The diastolic filling pattern is normal for the age of the patient 5.89 4. The left atrial size is normal. 5. The right atrial size is normal. 6. There is mild aortic stenosis present. 7. Peak/mean gradient across the Aortic Valve is 18.22mmHg / 8.34mmHg. 8. Mild mitral annular calcification present. 9. Mild mitral regurgitation is present. 10. Moderate to severe tricuspid regurgitation present. 11. There is moderate pulmonary hypertension. 12. The right ventricular systolic pressure, as measured by Doppler, is 63.23mmHg. 13. There is no pulmonic regurgitation present. 14. The aortic root size is normal. 15. There is no pericardial effusion. PICTURE COPYIST: Na Larry RDCS
--- NOTE | 2018-12-15 18:42 | PN ---
PROGRESS NOTE I am covering for Dr. Mayfield. DATE OF SERVICE: 12/15/2018 This 78-year-old woman who was admitted with a fall and possible sacral coccygeal fracture is being closely monitored. Pain is improving at this time. The patient is able to ambulate with a walker. A hip MRI failed to show any acute hip fractures at this time. No chest pain. No palpitations. No fever. On exam, alert oriented x2. Pulse is 66, blood pressure 96/52, respirations 16, temperature 97.5, pulse ox 96% on room air. HEENT: Conjunctivae normal. NECK: No jugular venous distention. CARDIOVASCULAR SYSTEM: S1, S2 muffled. RESPIRATORY SYSTEM: Breath sounds diminished at the bases. A few scattered rhonchi. No crackles. ABDOMEN: Soft, non-tender. LEGS: Movements are slightly painful. NERVOUS SYSTEM: No focal deficit. Labs show WBC 6.9, hemoglobin 11.7. UA shows possible UTI. ASSESSMENT: 1. Fall and possible sacral coccygeal fracture as well as contusion with severe gait dysfunction and severe pain. 2. Acute urinary tract infection, present on admission. 3. Gait dysfunction. 4. Pelvis fractures, possibly old versus recent.. 5. Severe degenerative joint disease of the back and mild spinal canal stenosis. 6. Acute urinary tract infection, present on admission. 7. History of gastroesophageal reflux disease. 8. History of hypertension. 9. History of degenerative joint disease. 10.History of migraines. 11.Cholecystectomy. 12.Claustrophobia. 13.Remote history of nicotine dependence. 14.Anemia, normocytic, of undetermined etiology. 15.FULL CODE. RECOMMENDATIONS AND DISCUSSION: I recommend to continue current medications, continue with the monitoring, symptomatic treatment. Otherwise at this time we will monitor the patient closely. Continue the antibiotics. PT/OT evaluation. Pain management. Guarded prognosis. Further recommendations to follow. MMODL / IJN: [id number] /
[2018-12-15] MEDS: AMITRIPTYLINE HCL 50 MG TAB PO SCH (20:45)
[2018-12-16] MEDS: MORPHINE SULFATE 4 MG/ML SYRINGE IV PRN ×2 (05:13→11:36)
[2018-12-16 07:27] VITALS: BP 140/75; PULSE 86; RESP 16; TEMP 97.8
[2018-12-16] MEDS: ESCITALOPRAM 5 MG TAB PO SCH (09:36)
[2018-12-16] MEDS: PANTOPRAZOLE 40 MG TABLET PO SCH (09:36)
[2018-12-16] MEDS: HYDROcodone/APAP 5-325MG 1 EACH TAB PO PRN (09:36)
[2018-12-16] MEDS: HYDROCHLOROTHIAZIDE 25 MG TAB PO SCH (09:37)
[2018-12-16] MEDS: METOPROLOL SUCCINATE (ER) 25 MG TAB.ER.24H PO SCH (09:37)
[2018-12-16] MEDS: HEPARIN SODIUM,PORCINE 5,000 UNIT/ML 1 ML VIAL SQ SCH (09:37)
[2018-12-16] MEDS: amLODIPine 10 MG TAB PO SCH (09:37)
[2018-12-16] MEDS: MULTIVITAMINS, THERA 1 EACH TAB PO SCH (09:37)
[2018-12-16] MEDS: CHOLECALCIFEROL 1,000 UNIT TAB PO SCH (09:37)
[2018-12-16] MEDS: SODIUM CHLORIDE 0.9% 1,000 ML IV SCH (11:28)
[2018-12-16 11:32] LABS: Basophils # (A) 0.1 k/uL (0-0.2); Basophils % (A) 1 %; Eosinophils # (A) 0.4 k/uL (0-0.7); Eosinophils % (A) 6 %; HCT 34.2 % (34.0-46.0); HGB 11.1 gm/dL (11.4-16.0); Lymphocytes # (A) 1.7 k/uL (1.0-4.8); Lymphocytes % (A) 24 %; MCH 28.7 pg (25.0-35.0); MCHC 32.5 g/dL (31.0-37.0); MCV 88.3 fL (80.0-100.0); Mean Platelet Volume 6.5; Monocytes # (A) 0.3 k/uL (0-1.0); Monocytes % (A) 5 %; Neutrophils # (A) 4.2 k/uL (1.3-7.7); Neutrophils % (A) 61 %; Platelet Count 281 k/uL (150-450); RBC 3.87 m/uL (3.80-5.40); RDW 14.6 % (11.5-15.5); WBC 6.9 k/uL (3.8-10.6)
[2018-12-16 11:56] LABS: Anion Gap 7 mmol/L; Blood Urea Nitrogen 7 mg/dL (7-17); Calcium 8.7 mg/dL (8.4-10.2); Carbon Dioxide 23 mmol/L (22-30); Chloride 108 mmol/L (98-107); Glucose 101 mg/dL (74-99); Potassium 3.7 mmol/L (3.5-5.1); Sodium 138 mmol/L (137-145)
--- NOTE | 2018-12-16 15:34 | DS ---
DISCHARGE SUMMARY DATE OF SERVICE: 12/16/2018. FINAL DISCHARGE DIAGNOSES: 1. Fall and sacral coccygeal fracture as well as contusion with severe gait dysfunction severe pain. 2. Acute urinary tract infection present on admission. 3. Gait dysfunction. 4. Pelvis fractures, possibly old versus recent. 5. Severe degenerative joint disease and back pain and mild splenic canal stenosis. 6. Acute urinary tract infection. 7. History of gastroesophageal reflux disease. 8. History of hypertension. 9. Degenerative joint disease. 10.History of migraines. 11.Cholecystectomy. 12.History of claustrophobia. 13.Remote history of nicotine dependence. 14.Anemia normocytic of undetermined etiology. 15.FULL CODE. DISCHARGE DISPOSITION: Patient will be discharged in stable condition with guarded prognosis. HISTORY OF PRESENT ILLNESS: This 78-year-old woman with a past medical history of multiple medical problems was admitted with fall and fracture as detailed above. The patient was followed by Dr. Kamari Mayfield in the outpatient setting. Patient treated symptomatically. Dr. Kraft saw the patient and recommended weightbearing as tolerated. On exam vitals are stable. Cardiovascular: S1, S2. Abdomen soft. Nervous System: No focal deficits. Patient is able to ambulate. The patient is keen on going home. The patient apparently had a appoint with Dr. Vasquez for pain pump insertion. The patient is recommended to continue the medications and follow up with Dr. Vasquez. Antibiotics to be continued. DISCHARGE ADVICE AND MEDICATIONS: 1. Discharge diet is cardiac diet. 2. Activity limited until follow up. 3. Follow up with Dr. Kamari Mayfield in 1-2 days. 4. Follow up with Dr. Kraft as advised. MEDICATIONS: 1. Elavil 50 mg q.h.s. 2. Norvasc 10 mg p.o. daily. 3. Vitamin D 3000 daily. 4. Lexapro 5 mg p.o. daily. 5. HydroDIURIL 25 mg daily. 6. [place] 5 mg t.i.d. p.r.n. 7. Toprol-XL 25 mg p.o. daily. 8. Ceftin 500 mg p.o. daily for 3 days. MMODL / IJN: [id number] /
== END 2018-12-16 13:18 | disposition home or self-care (01) | DRG 552 ==
LOC: EC 10:44 → 4SSUR 17:05 → 4MS4W 18:56
PROVIDERS: ADMIT Family Medicine; ATTEND Family Medicine
DX: S32.2XXA Fracture of coccyx, initial encounter for closed fracture (principal); S32.512A Fracture of superior rim of left pubis, initial encounter for closed fracture; I87.1 Compression of vein; N39.0 Urinary tract infection, site not specified; D64.9 Anemia, unspecified; S32.10XA Unspecified fracture of sacrum, initial encounter for closed fracture; I10 Essential (primary) hypertension; G43.909 Migraine, unspecified, not intractable, without status migrainosus; K21.9 Gastro-esophageal reflux disease without esophagitis; R26.9 Unspecified abnormalities of gait and mobility; F40.240 Claustrophobia; M19.90 Unspecified osteoarthritis, unspecified site; M47.896 Other spondylosis, lumbar region; M48.061 Spinal stenosis, lumbar region without neurogenic claudication; W01.0XXA Fall on same level from slipping, tripping and stumbling without subsequent striking against object, initial encounter; Y93.9 Activity, unspecified; Y92.9 Unspecified place or not applicable; Z79.899 Other long term (current) drug therapy; Z90.710 Acquired absence of both cervix and uterus; Z87.891 Personal history of nicotine dependence; Z85.828 Personal history of other malignant neoplasm of skin; Z90.49 Acquired absence of other specified parts of digestive tract; Z98.42 Cataract extraction status, left eye; Z98.41 Cataract extraction status, right eye; Z96.1 Presence of intraocular lens; Z96.20 Presence of otological and audiological implant, unspecified; Z82.49 Family history of ischemic heart disease and other diseases of the circulatory system
CPT/HCPCS: 36415; 71045; 72131; 72192; 73502; 80048; 80053; 81001; 82550; 84484; 85025; 87040; 87086; 93005; 93306; 96374; 96376; 99285

== ENCOUNTER 2019-07-09 18:12 | Emergency (ER) | payer OTHER, MEDICARE, BC ==
[2019-07-09 18:24] VITALS: RESP 18
[2019-07-09] MEDS ORDERED: DIPH,PERTUS(ACELL)TETVAC-LF 0.5 ML VIAL IM ONE (18:35)
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
--- NOTE | 2019-07-09 19:06 | XR ---
EXAMINATION TYPE: XR ankle complete RT DATE OF EXAM: 07/09/2019 CLINICAL HISTORY: Pain. TECHNIQUE: Frontal, lateral and oblique images of the right ankle are obtained. COMPARISON: None. FINDINGS: There is no acute fracture/dislocation evident in the right ankle. The ankle mortise appe ars within normal limits. [id number] subcutaneous edema with soft tissue vascular calcification . Small to moderate size inferior calcaneal spur. IMPRESSION: As above.
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
[2019-07-09 19:59] VITALS: BP 159/74; PULSE 77; TEMP 98.3
== END 2019-07-09 19:58 | disposition home or self-care (01) ==
LOC: EC 18:12
DX: S93.401A Sprain of unspecified ligament of right ankle, initial encounter (principal); S00.212A Abrasion of left eyelid and periocular area, initial encounter; I10 Essential (primary) hypertension; Z87.891 Personal history of nicotine dependence; Z88.2 Allergy status to sulfonamides; Z88.3 Allergy status to other anti-infective agents; Z79.891 Long term (current) use of opiate analgesic; Z79.899 Other long term (current) drug therapy; Z85.828 Personal history of other malignant neoplasm of skin; Z97.3 Presence of spectacles and contact lenses; Z98.890 Other specified postprocedural states; Z23 Encounter for immunization; V49.59XA Passenger injured in collision with other motor vehicles in traffic accident, initial encounter; Y92.410 Unspecified street and highway as the place of occurrence of the external cause
CPT/HCPCS: 70150; 71046; 90471; 90715; 99284

== ENCOUNTER → 2020-10-06 | Outpatient (CLI) | payer MEDICARE, BC ==
[2020-10-06 10:25] VITALS: BP 126/73; PULSE 71; RESP 16; TEMP 97.6
--- NOTE | 2020-10-06 10:42 | P.PAINCN ---
History of Present Illness - Reason for Consult Consult date: 10/06/20 - History of Present Illness This is 80 years old female with a chronic history of severe low back pain started more than 5 years ago, and she has multiple pain management interventions procedure done at different pain clinic, patient reported that her low back pain it's constant and increases with any activity diffusely with the quality of life, the intensity of the pain is 7/10 increases with any activity to a 10 over 10 , radiated to the posterior lateral aspect of her lower extremity bilaterally, also patient had shoulder pain, which is increased with any activity, patient reported that she had some weakness in her lower extremity bilaterally, she is ambulate using a cane, she had urinary frequency and she is diagnosed with tract infection Past Medical History Past Medical History: Cancer, GERD/Reflux, Hypertension, Osteoarthritis (OA) Additional Past Medical History / Comment(s): migraines,past lt. leg wound since healed, skin cancer on nose History of Any Multi-Drug Resistant Organisms: None Reported Past Surgical History: Back Surgery, Cholecystectomy, Hysterectomy, Orthopedic Surgery, Tonsillectomy Additional Past Surgical History / Comment(s): PAIN STIMULATOR IN BACK. eye lid surgery,james cataracts removed-has lens implants, right shoulder, rt foot 2nd toe pinning done, lt ear implant(plantinum wire implant done in 1991) Past Anesthesia/Blood Transfusion Reactions: No Reported Reaction Additional Past Anesthesia/Blood Transfusion Reaction / Comm: clausterphobia Past Psychological History: No Psychological Hx Reported Smoking Status: Former smoker Past Alcohol Use History: Occasional Additional Past Alcohol Use History / Comment(s): started smoking age 15 and quit 2017 smoked 1 ppd Past Drug Use History: None Reported - Past Family History Mother Family Medical History: Hypertension Additional Family Medical History / Comment(s): gout Father Additional Family Medical History / Comment(s): age 59 "heart" Medications and Allergies Home Medications Medication Instructions Recorded Confirmed Type amLODIPine BESYLATE [Norvasc] 10 mg PO DAILY 01/26/16 10/06/20 History hydroCHLOROthiazide [Hydrodiuril] 25 mg PO DAILY 01/26/16 10/06/20 History Cholecalciferol [Vitamin D3 (25 1,000 unit PO DAILY 04/17/18 10/06/20 History Mcg = 1000 Iu)] Escitalopram [Lexapro] 5 mg PO DAILY 04/17/18 10/06/20 History Metoprolol Succinate (ER) [Toprol 25 mg PO DAILY 04/17/18 10/06/20 History XL] Allergies Allergy/AdvReac Type Severity Reaction Status Date / Time Sulfa (Sulfonamide Allergy FEELS LIKE Verified 10/01/20 12:16 Antibiotics) BUGS ARE ALL OVER ME terbinafine [From Lamisil] Allergy FEELS LIKE Verified 10/01/20 12:16 BUGS ARE ALL OVER ME Physical Exam Vitals: Vital Signs Temp Pulse Resp BP Pulse Ox 10/06/20 09:00 97.6 F 71 16 126/73 97 Physical Examinations : -Constitutiona : Cooperative , not in acute distress . -HEENT : nech : supple , no Lymphadenopathy , normal thyroid size . : eyes : no ptosis , no icterus, no photophobia . . - neurologic : Cranial nerve II to XII intact , no focal neurological deffecit . -psychatric : alert , oriented X 3 , appropriate affect , intact judgment and insight . -Lymphatic : no Lymphadenopathy . - musculoskeltal : Cervical Spine motor stregnth in the deltoid and biceps, normal right side , normal Left side motor stregnth biceps and the wrist extensors normal right side ,normal left side . motor stregnth in the triceps muscle . normal Right side , normal Left side deep tendon reflexes normal at the biceps , normal at Brachioradialis , normal at triceps. Shoulder joints= active and passive movement of both shoulders associated with pain no erythema and no swelling both shoulders Lumber spine moter stegnth lower extremities ,thigh and legs 4/5 Right side , 4/5 Left side deep tendon reflexes : normal Knee Jerk , normal ankle Jerk lumber facet Loading Test =positive Right , positive Left Range of motion of the lumbar spine Flexion 30 degrees, extension 10 degrees strait leg raising test = positive at 45 degree Fabere test= positive Right , and positive LT . tenderness over the Sacroiliac joint on the Right , and Left sides . Results Comments: MRI of the lumbar spine multilevel degenerative disc disease multilevel lumbar facet arthropathy from L2 to S1 moderate spinal canal stenosis Assessment and Plan Plan: Assessment and plan=1-lumbar spondylosis with lumbar facet arthropathy without myelopathy. 2-lumbar degenerative disc disease. Patient will be scheduled to have diagnostic medial branch block lumbar area at L3, L4, L5 (to target the facet joints at L4- L5 and L5-S1 ) if She has positive result ,then will proceed with RFA, also in the future patient will be good candidate to have lumbar epidura injection She continued to have pain after the RFA Time with Patient: Greater than 30 PQRS Measure Charge Sheet Measure #130: Documentation of Current Meds in Medical Chart: Patient's medications documented in chart Measure #226: Tobacco Use: Screen & Cessation Intervention: Pt not a tobacco user Measure #111: Pneumonia Vaccination: Pneumococcal vaccine NOT administered or previously given Measure #47: Advance Care Plan: Advance care planning discussed & documented, pt chose/unable to give Measure #412: Opioid Treatment Agreement: No documentation of signed opioid treatment agreement Measure #408: Opioid Therapy Follow-up Evaluation: Patient had NO f/u eval minimum every 3 months during opioid therapy Measure #317: Preventitive Care & Scrn High Bld Press & F/U: Normal blood pressure, f/u not required Measure #128: Body Mass Index (BMI) Screening & Follow-up: BMI documented ABOVE normal parameters - f/u documented Measure #131: Pain Assessment & Follow-up: Pain positive & plan documented, Follow-up scheduled Measure #431: Unhealthy Alcohol Use Preventative Care & Scrn: Patient not identified as an unhealthy alcohol user PQRS Narrative: Smoking Status Former smoker Blood Pressure 126/73 Pain Intensity [Lower Back] 10 Scale Used Numeric (1 - 10) Hx Alcohol Use (MH) Yes Home Medications: Ambulatory Orders amLODIPine BESYLATE [Norvasc] 10 mg PO DAILY 01/26/16 hydroCHLOROthiazide [Hydrodiuril] 25 mg PO DAILY 01/26/16 Cholecalciferol [Vitamin D3 (25 Mcg = 1000 Iu)] 1,000 unit PO DAILY 04/17/18 Escitalopram [Lexapro] 5 mg PO DAILY 04/17/18 Metoprolol Succinate (ER) [Toprol XL] 25 mg PO DAILY 04/17/18
== END | disposition home or self-care (01) ==
LOC: PNWHC3 09:58
PROVIDERS: ATTEND Specialist
DX: M51.36 Other intervertebral disc degeneration, lumbar region (principal); M47.816 Spondylosis without myelopathy or radiculopathy, lumbar region; I10 Essential (primary) hypertension; M19.90 Unspecified osteoarthritis, unspecified site; K21.9 Gastro-esophageal reflux disease without esophagitis; Z85.9 Personal history of malignant neoplasm, unspecified; Z87.891 Personal history of nicotine dependence; Z79.899 Other long term (current) drug therapy; Z79.891 Long term (current) use of opiate analgesic; Z88.2 Allergy status to sulfonamides; Z88.1 Allergy status to other antibiotic agents
CPT/HCPCS: 99211

== ENCOUNTER → 2020-10-17 | Day surgery (SDC) | payer MEDICARE, BC ==
[2020-10-16 08:27] VITALS: BMI 29.2
[~2020-10-17] MED LIST: IV FLUID CONTINUATION 500 ML IV ONE; LACTATED RINGERS 1,000 ML IV ONE; LACTATED RINGERS 1,000 ML IV SCH; PROPOFOL 10 MG/ML 20 ML VIAL IV ONE; ROPIVACAINE 5MG/ML 20ML VIAL ONE; TRIAMCINOLONE ACETONIDE 40 MG/ML 1 ML VIAL ONE; fentaNYL (PF) 50 MCG/ML 2 ML AMP ONE
[2020-10-17 14:15] VITALS: RESP 16; TEMP 97.4
--- NOTE | 2020-10-17 15:26 | FL ---
Fluoroscopy INDICATION: Pain FINDINGS: Fluoroscopy time: 8 seconds. Images obtained: 0. IMPRESSIONS: 1. Documentation of fluoroscopy.
[2020-10-17 15:34] VITALS: BP 131/70; PULSE 70
== END ==
LOC: ORPAIN 13:48
PROVIDERS: ATTEND Anesthesiology
DX: M47.816 Spondylosis without myelopathy or radiculopathy, lumbar region (principal); K08.89 Other specified disorders of teeth and supporting structures; I10 Essential (primary) hypertension; M19.90 Unspecified osteoarthritis, unspecified site; G43.909 Migraine, unspecified, not intractable, without status migrainosus; K21.9 Gastro-esophageal reflux disease without esophagitis; Z78.0 Asymptomatic menopausal state; Z88.2 Allergy status to sulfonamides; Z88.8 Allergy status to other drugs, medicaments and biological substances; Z85.828 Personal history of other malignant neoplasm of skin; Z79.891 Long term (current) use of opiate analgesic; Z79.899 Other long term (current) drug therapy
CPT/HCPCS: 64493; 64494; 64495; J3301; J3010; J2704; J2795

== ENCOUNTER 2020-11-14 06:10 | Day surgery (SDC) | payer MEDICARE, BC ==
[2020-11-10 14:18] VITALS: BMI 29.2
[2020-11-14] MEDS ORDERED: LACTATED RINGERS 1,000 ML IV SCH (06:59)
[2020-11-14] MEDS ORDERED: LACTATED RINGERS 1,000 ML IV ONE (06:59)
[2020-11-14 07:03] VITALS: RESP 16; TEMP 98.3
[2020-11-14] MEDS ORDERED: ROPIVACAINE 5MG/ML 20ML VIAL ONE (07:04)
[2020-11-14] MEDS ORDERED: MIDAZOLAM 2 MG/2 ML VIAL ONE (07:04)
[2020-11-14] MEDS ORDERED: methylPREDNISolone ACETATE 40 MG/ML 1 ML VIAL ONE (07:04)
--- NOTE | 2020-11-14 07:25 | P.PCN ---
Date of Procedure: 11/14/20 Procedure(s) Performed: PREOPERATIVE DIAGNOSIS : 1- Lumbar spondylosis with Facet Arthropathy without myelopathy . 2- Lumber degenerative disc disease POSTOPERATIVE DIAGNOSIS: 1- Lumbar spondylosis with Facet Arthropathy without myelopathy . 2- Lumber degenerative disc disease PROCEDURE: Diagnostic bilateral L3 , L4 , and L5 medial branch block under fluoroscopy guidance(fluoroscopy images available in the radiology Department ) ( To target the facet joint between L4-5 , and L5-S1 ) ANESTHESIA:, moderate sedation with intravenous Versed 1 mg . EBL: Minimal COMPLICATION: None PROCEDURE INDICATION: Chronic low back pain secondary to Facet arthropathy unresponsive to conservative treatment. PROCEDURE DESCRIPTION: the patient was seen and identified in the preop holding area , risks and benefits and possible complications of the procedure and alternative were discussed with the patient, and the patient agreed to proceed with the procedure and signed the consent and vital signs monitored during the procedure and fluoroscopy was used to maximize the benefit and accuracy of the needle placement, and sedation was given to decrease patient anxiety, patient was taken to the procedure room and placed in prone position vital signs monitored in the back prepped with chlorhexidine X3 then under strict sterile technique using a right oblique fluoroscopy ,the junction of the transverse process and the superior articulating process of the right L3 , L4 , and L5 vertebra which corresponding to the fluoroscopy image of the eye of the Apolinar dog on the block side for the medial branches and subsequently , after local infiltration of skin and subcu tissuies with Ropivacaine 0.5 % , one mL at each level ,then 22-gauge Quincke-type needles , 3 needle was used , each one of them placed at the junction of the base of the transverse process and the superior articular process at the appropriate level, and the needle was advanced until the periosteum contacted, needle placement confirmed with AP oblique and lateral view and after appropriate needle placement confirmed, and after negative aspiration for heme and CSF and there was no paresthesia 1-1/2 mL of Ropivacaine 0.5% mixed with 20 mg Depo-Medrol , then half mL injected at each level after negative aspiration the needle subsequently removed and the same procedure repeated for the left side at left side at L3 , L4 and L5 levels. At the end of the procedure and the needles removed and a bandage applied after the skin was cleaned the cleaning solution patient taken to recovery room in stable condition and monitors in the recovery room for 20-30 minutes and discharged home in stable condition after discharge criteria met and patient will follow up with the pain clinic in 2-4 weeks off note= patient had a spinal cord stimulator placed at different pain clinic, patient reported that she had a good result with the trial, but when they placed a permanent implant she has no benefit from, and the stimulator was placed in February 2020 and a tried multiple times to reprogram it, but she never had good outcome, the future we can try to address the spinal cord stimulator issues.
[2020-11-14 07:45] VITALS: BP 124/63; PULSE 90
[2020-11-14] MEDS ORDERED: IV FLUID CONTINUATION 1,000 ML IV ONE (07:52)
--- NOTE | 2020-11-14 08:06 | FL ---
EXAMINATION TYPE: FL guided pain mgmt statistic DATE OF EXAM: 11/14/2020 CLINICAL HISTORY: Low back pain. TECHNIQUE: Fluoroscopy. COMPARISON: None. FINDINGS: Fluoroscopic guidance was provided during pain relief procedure performed by Dr. Johnson . A total of 8 seconds of fluoroscopic time was utilized during the procedure and 4 spot images are acquired. Images acquired shows needle localization at several levels in the low back. IMPRESSION: As Above.
== END 2020-11-14 07:59 | disposition home or self-care (01) ==
LOC: ORPAIN 06:10
PROVIDERS: ATTEND Specialist
DX: G89.29 Other chronic pain (principal); M47.816 Spondylosis without myelopathy or radiculopathy, lumbar region; I10 Essential (primary) hypertension; Z88.2 Allergy status to sulfonamides; Z88.8 Allergy status to other drugs, medicaments and biological substances
CPT/HCPCS: 64493; 64494; J2250; J1030; J2795; 99152

== ENCOUNTER → 2020-11-28 | Outpatient (CLI) | payer MEDICARE, BC ==
[2020-11-28 11:06] LABS: African American GFR (CKD) >90 (>60 ml/min/1.73 sqM); Blood Urea Nitrogen 19 mg/dL (7-17); Non-African American GFR(CKD) >90 (>60 ml/min/1.73 sqM)
--- NOTE | 2020-11-28 13:06 | CT ---
EXAMINATION TYPE: CT chest w con DATE OF EXAM: 11/28/2020 COMPARISON: CT chest September 14, 2016. Chest x-ray July 09, 2019 HISTORY: abnormal findings CT DLP: 353.70 mGycm. Automated Exposure Control for Dose Reduction was Utilized. TECHNIQUE: CT scan of the thorax is performed following with IV Contrast, patient injected with 100 mL of Isovue 300. FINDINGS: LUNGS: There is a 3.0 x 2.1 cm mass in the right middle lobe axial image 25 new From older studies. [id number] bilateral lower lung linear scarring and/or atelectasis . MEDIASTINUM: There is suspicious enlarged right hilar 2.1 x 1.5 cm lymph node image 23.. No pericar dial effusion is seen. Cardiomegaly. Moderate to severe three-vessel coronary artery calcification. OTHER: Cholecystectomy clips. S-shaped scoliosis. Multilevel spurring in the spine. Thoracic spinal s timulator. IMPRESSION: New suspicious 3.0 cm right middle lobe mass and associated right hilar adenopathy worris ome for neoplasm. Follow-up PET/CT and/or sampling advised. A Yellow level critical message alert has been initiated for Kamari Mayfield DO via the [employer] Critical Results System on 11/28/2020 1:04 PM. This message alert has been sent to Kamari Mayfield DO via the preferences provided by the clinician for the receipt of Radiology Critical Findings. Message ID [id number].
== END | disposition home or self-care (01) ==
LOC: RADCTMAIN 10:15
PROVIDERS: ATTEND Family Medicine
DX: R91.1 Solitary pulmonary nodule (principal); Z88.2 Allergy status to sulfonamides; Z88.6 Allergy status to analgesic agent
CPT/HCPCS: 82565; 84520; 71260; 36415; Q9967

== ENCOUNTER → 2020-12-05 | Outpatient (CLI) | payer MEDICARE, BC ==
--- NOTE | 2020-12-07 14:11 | PE ---
EXAMINATION TYPE: PET CT fusion skull to thigh DATE OF EXAM: 12/05/2020 COMPARISON: Chest CT November 28, 2020 HISTORY: Solitary pulmonary nodule , abnormal CT. TECHNIQUE: Following the intravenous administration of 9.472 mCi of F-18 FDG, whole body images are performed from the skull base to the midthigh. Images are reviewed on the computer in the coronal, a xial, and sagittal planes. Reconstructed rotating images are created on independent workstation and reviewed on the computer. A localization and attenuation correction CT is performed in conjunction with the PET scan. SCAN: Initial Scan FINDINGS: SKULL BASE AND NECK: No areas of suspicious hypermetabolic uptake. CHEST, MEDIASTINUM, AND HILAR REGIO: Mild underlying emphysematous change redemonstrated. There is r edemonstration of 3.0 x 2.5 cm hypermetabolic right middle lobe mass axial image 104. There is confir mation of right hilar involvement with hypermetabolic 1.6 x 1.4 cm anterior right hilar lymph node ax ial image 101. No additional areas of abnormal hypermetabolic uptake in the thorax. ABDOMEN AND PELVIS: No adrenal masses. No areas of abnormal hypermetabolic uptake. OSSEOUS STRUCTURES: No areas of abnormal hypermetabolic uptake. OTHER CT: Moderate calcified plaque bilateral carotid bulb level. Moderate to severe three-vessel coronary artery calcification and/or stents. Cholecystectomy clips. Moderate to severe calcified plaque of the aorta extends into iliac branch ves sels. Pessary type device in the vaginal canal. Old fracture deformity left inferior pelvic ramus. Underlying scoliosis. Stimulator device midthoraci c spinal canal. Facet arthropathy lower lumbar spine. Multilevel disc space narrowing. 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 No metastatic dis ease noted. T2a,N1,M0 Stage IIb
== END | disposition home or self-care (01) ==
LOC: RADPETMAIN 17:11
PROVIDERS: ATTEND Internal Medicine
DX: D49.1 Neoplasm of unspecified behavior of respiratory system (principal)
CPT/HCPCS: 78815; A9552

== ENCOUNTER → 2020-12-12 | Day surgery (SDC) | payer MEDICARE, BC ==
[2020-12-11 11:28] VITALS: BMI 27.4
[~2020-12-12] MED LIST changes: +ALBUTEROL NEB (CONC) 2.5 MG/0.5 ML INHALATION ONE; +DEXAMETHASONE SOD PHOSPHATE 4 MG/ML 1 ML VIAL IV ONE; -IV FLUID CONTINUATION 500 ML IV ONE; -LACTATED RINGERS 1,000 ML IV ONE; +LIDOCAINE 1% (10MG/ML) FOR IV START INTRADERMA ONE; +LIDOCAINE 1% (10MG/ML) FOR IV START INTRADERMA PRN; +LIDOCAINE 1% INJ 10MG/ML (20 ML MDV) ONE; +LIDOCAINE 2% (PF) 20 MG/ML 5 ML VIAL INHALATION ONE; +LIDOCAINE 2% GEL 30 ML TUBE TOPICAL ONE; +LIDOCAINE VISCOUS 300 MG/15 ML CUP MUCOUS MEM ONE; +ONDANSETRON 4 MG/2 ML VIAL IVP ONE; -ROPIVACAINE 5MG/ML 20ML VIAL ONE; +SODIUM CHLORIDE 0.9% 1,000 ML IV SCH; +SUCCINYLCHOLINE CHLORIDE 100 MG/5 ML SYR IV ONE; -TRIAMCINOLONE ACETONIDE 40 MG/ML 1 ML VIAL ONE; +ePHEDrine SULFATE/0.9% NACL/PF 50 MG/5 ML SYRINGE IV ONE; +fentaNYL (PF) 50 MCG/ML 2 ML AMP IVP ONE
--- NOTE | 2020-12-12 13:46 | CT ---
EXAMINATION TYPE: CT Chest tita Ballard Protocol DATE OF EXAM: 12/12/2020 COMPARISON: PET/CT 12/05/2020 HISTORY: Preprocedureal CT DLP: 529 mGycm, Automated exposure control for dose reduction was used. CONTRAST: Performed injected with 0 mL of Isovue 300. TECHNIQUE: Axial images were obtained at 5 mm thick sections. Reconstructed images are reviewed on [employer] computer in the coronal plane. FINDINGS: Portion of the thyroid visualized is normal. There is a 2.9 x 2.2 cm mass within the right midlung corresponding to the lung mass on localization PET/CT. No enlarged mediastinal or hilar adenopathy is evident. The ascending aorta diameter at the level o f the main pulmonary artery is 3.4 cm. The main pulmonary artery diameter at the bifurcation is 2.4 cm. Dense coronary artery calcification is present. Limited CT sections are obtained through the upper abdomen. Abdomen is essentially unremarkable. Chol ecystectomy has been performed. IMPRESSIONS: 1. CT for bronchoscopy planning. 2. Mass within the right midlung
--- NOTE | 2020-12-12 14:00 | P.PCN ---
Date of Procedure: 12/12/20 Preoperative Diagnosis: Right upper lobe mass, right hilar lymph node Postoperative Diagnosis: same Procedure(s) Performed: Navigational bronchoscopy Transbronchial biopsy of right upper lobe mass Transbronchial brushing of right upper lobe mass Transbronchial needle aspirate of a right hilar lymph node Anesthesia: AUDI Surgeon: Shekhar Linda Textile Science Technician #1: Mary Limon Estimated Blood Loss (ml): 0 Pathology: other Condition: stable Disposition: same day Operative Findings: This patient has a right upper lobe mass and right hilar lymph node. The patient underwent a navigational bronchoscopy. The patient came in to preop and the VPADS were applied to her chest. Following that, the patient was taken to CAT scan of the chest to obtain a CT utilizing the Veran protocol. The CT images were uploaded into the system and the appropriate mapping of the right upper lobe and right suprahilar lymph node was done. The appropriate navigational guidance was established and following that all of this information was uploaded into a USB and information was later on transferred to the navigational tower. The patient was brought in today endoscopy suite and she was intubated by the usual fashion. She was intubated by PSYCHOLOGIST RESEARCH ASSISTANT and placed on a mechanical ventilation and the procedure was done as the patient was fully oxygenated and ventilated. An adapter was attached and orotracheal tube and following that the flexible bronchoscope was introduced into the airways. The distal tip of the orotracheal tube was seen about 3 cm above the kim. The pericardium was within normal limits. Examination of the left side including the left mainstem bronchus, left upper lobe bronchus and left lower lobe bronchus and the eighth different segments on the left and all of these airways were patent and within normal limits. The bronchoscope was then moved to the right. Right mainstem bronchus was patent. Distal right mainstem bronchus at the uptake of the right upper lobe was extrinsically compressed probably related to this hilar lymph node. Examination of the right upper lobe included the right upper lobe bronchus anterior segment. Posterior segment of posterior segment. Then the bronchoscope was moved to the bronchus intermedius that was normal. Examination of the right middle lobe and the right lower lobe was done and all of these airways were patent. The 10 different segments of the right upper lobe were patent. Utilizing medication, transbronchial needle aspirate of the right hilar lymph node was done. Aspirate was bloody. A total of 4 passes were taken. We utilizing a 21-gauge histology needle. Following that, utilizing navigational guidance, the bronchoscope was moved to the right upper lobe posterior segment and the appropriate segment leading into the right upper lobe mass was identified and multiple transbronchial biopsy was done under the navigational guidance. The lesion was approached and biopsies with great accuracy. Following that, transbronchial brushings of the right upper lobe mass was done utilizing navigational guidance. No endobronchial bleeding. The procedure was completed without any complication. Bronchoscope was removed after therapeutic airway suctioning was done. The patient was left for PSYCHOLOGIST RESEARCH ASSISTANT to be extubated and postextubation patient is going to have a chest x-ray and she is going to be transferred to recovery.
[2020-12-12 14:15] VITALS: TEMP 97.2
--- NOTE | 2020-12-12 14:42 | XR ---
EXAMINATION TYPE: XR chest 1V DATE OF EXAM: 12/12/2020 HISTORY: Status post bronchoscopy. COMPARISON: 07/19/2019 TECHNIQUE: Single view of the chest is submitted. FINDINGS: Demonstrated are scattered senescent parenchymal change. No evidence for right-sided pneumothorax. Right midlung zone mass noted. Linear atelectasis or parenc hymal scarring left lung base. The heart is stable. Hilar and mediastinal structures are within normal limits. Degenerative changes are seen of the dorsal spine. IMPRESSION: 1. No evidence for right-sided pneumothorax. Right midlung zone mass noted. Linear atelectasis or pa renchymal scarring left lung base.
[2020-12-12 14:51] VITALS: RESP 17
[2020-12-12 15:10] VITALS: BP 142/70; PULSE 90
== END ==
LOC: ORWHC2ENDO 11:07
PROVIDERS: ATTEND Internal Medicine
DX: C34.11 Malignant neoplasm of upper lobe, right bronchus or lung (principal); F32.9 Major depressive disorder, single episode, unspecified; I27.20 Pulmonary hypertension, unspecified; G89.4 Chronic pain syndrome; I10 Essential (primary) hypertension; J44.9 Chronic obstructive pulmonary disease, unspecified; G43.909 Migraine, unspecified, not intractable, without status migrainosus; M19.90 Unspecified osteoarthritis, unspecified site; I49.3 Ventricular premature depolarization; K21.9 Gastro-esophageal reflux disease without esophagitis; Z88.8 Allergy status to other drugs, medicaments and biological substances; Z88.2 Allergy status to sulfonamides; Z79.899 Other long term (current) drug therapy; Z79.82 Long term (current) use of aspirin; Z87.891 Personal history of nicotine dependence; Z98.890 Other specified postprocedural states; Z79.891 Long term (current) use of opiate analgesic
CPT/HCPCS: 88104; 88305; 88342; 88341; 71045; 71250; 31628; 31629; 31623; 31627; J1100; J2405; J2001; J3010; J0330; J2704; 31625

== ENCOUNTER → 2020-12-29 | Outpatient (CLI) | payer MEDICARE, BC ==
[2020-12-29 17:33] LABS: African American GFR (CKD) >90 (>60 ml/min/1.73 sqM); Blood Urea Nitrogen 25 mg/dL (7-17); Non-African American GFR(CKD) >90 (>60 ml/min/1.73 sqM)
--- NOTE | 2020-12-30 06:48 | CT ---
EXAMINATION TYPE: CT brain wo/w con DATE OF EXAM: 12/29/2020 COMPARISON: PET/CT December 05, 2020 HISTORY: Lung CA, R/O metastatic disease CT DLP: 2325.6 mGycm Automated exposure control for dose reduction was used. CONTRAST: CT scan of the head is performed without and with IV Contrast, patient injected with 100 mL of Isovue 300. FINDINGS: There is no acute intracranial hemorrhage or midline shift. Mild to moderate ventricular and sulcal p rominence. Mild to moderate low attenuation in the periventricular white matter. Old infarct or foca l area of encephalomalacia in the anterior left frontal lobe with associated ex vacuo dilatation of t he left frontal horn. Postcontrast images show no suspicious enhancing intraparenchymal mass. The kobe bes are intact and the visualized sinuses are clear. IMPRESSION: Mild to moderate diffuse reflecting chronic small vessel ischemic change. 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 No suspicious enhancing masses to suggest metastatic disease to the brain.
== END ==
LOC: RADCTMAIN 16:53
PROVIDERS: ATTEND Internal Medicine Hematology & Oncology
DX: C34.91 Malignant neoplasm of unspecified part of right bronchus or lung (principal); I67.82 Cerebral ischemia; I63.50 Cerebral infarction due to unspecified occlusion or stenosis of unspecified cerebral artery
CPT/HCPCS: 82565; 84520; 70470; 36415; Q9967

== ENCOUNTER 2021-01-26 14:06 | Inpatient (IN) | payer MEDICARE, BC ==
--- NOTE | 2021-01-26 15:38 | ED ---
Fever HPI - General Source: patient, family, RN notes reviewed Mode of arrival: wheelchair Limitations: no limitations <Chet Jauregui - Last Filed: 01/26/21 15:37> - General Source: patient, RN notes reviewed Limitations: no limitations <Galindo Rodriguez - Last Filed: 01/26/21 18:33> - General Chief Complaint: Fever Stated Complaint: Fever,Cough Time Seen by Provider: 01/26/21 15:37 - History of Present Illness Initial Comments: Patient is an 80-year-old female that presents to the emergency department complaining of fever and increased cough. She does have a history of lung cancer, lifetime smoker currently undergoing chemo. She recently got labs that showed a low platelet count, she was having a fever so daughter decided to bring her to emergency department to get further evaluated. Daughter notes cough is productive of green mucus and is worse at night when he used to be previously worse in the morning. (Chet Jauregui) Patient is a pleasant 80-year-old female presenting to the emergency department with fever. Patient states she was going for chemotherapy today for her history of lung cancer. Patient was noticed she had a fever and recommended come here. Patient does admit to having some cough with weathers sputum the past couple of days. Patient is having minimal dyspnea. Patient does feel fatigued and generally weak. (Galindo Rodriguez) - Related Data Home Medications Medication Instructions Recorded Confirmed amLODIPine BESYLATE [Norvasc] 10 mg PO DAILY 01/26/16 01/26/21 hydroCHLOROthiazide [Hydrodiuril] 25 mg PO DAILY 01/26/16 01/26/21 Escitalopram [Lexapro] 5 mg PO DAILY 04/17/18 01/26/21 Metoprolol Succinate (ER) [Toprol 25 mg PO QAM 04/17/18 01/26/21 XL] oxyCODONE-APAP 7.5-325MG [Percocet 1 tab PO TID PRN 10/16/20 01/26/21 7.5-325 mg] Amitriptyline HCl [Elavil] 50 mg PO HS 01/26/21 01/26/21 Furosemide [Lasix] 20 mg PO DAILY 01/26/21 01/26/21 Ibuprofen [Motrin] 800 mg PO Q8H PRN 01/26/21 01/26/21 Meloxicam 15 mg PO DAILY PRN 01/26/21 01/26/21 Allergies Allergy/AdvReac Type Severity Reaction Status Date / Time Sulfa (Sulfonamide Allergy FEELS LIKE Verified 01/26/21 15:36 Antibiotics) BUGS ARE ALL OVER ME terbinafine [From Lamisil] Allergy FEELS LIKE Verified 01/26/21 15:36 BUGS ARE ALL OVER ME Review of Systems ROS Other: All systems not noted in ROS Statement are negative. <Chet Jauregui - Last Filed: 01/26/21 15:37> ROS Other: All systems not noted in ROS Statement are negative. Constitutional: Reports: fever Eyes: Denies: eye pain ENT: Denies: ear pain Respiratory: Reports: cough, dyspnea Cardiovascular: Denies: chest pain Endocrine: Reports: fatigue Gastrointestinal: Denies: abdominal pain Genitourinary: Denies: dysuria Musculoskeletal: Denies: back pain Skin: Denies: rash Neurological: Denies: weakness <Galindo Rodriguez - Last Filed: 01/26/21 18:33> ROS Statement: Those systems with pertinent positive or pertinent negative responses have been documented in the HPI. Past Medical History Past Medical History: Cancer, GERD/Reflux, Hypertension, Osteoarthritis (OA) Additional Past Medical History / Comment(s): tumor in lung,hx migraines, hx ski n cancer on nose, hx of sinus problems, severe dry mouth History of Any Multi-Drug Resistant Organisms: None Reported Past Surgical History: Back Surgery, Cholecystectomy, Hysterectomy, Orthopedic Surgery, Tonsillectomy Additional Past Surgical History / Comment(s): PAIN STIMULATOR IN BACK. eye lid surgery,james cataracts removed-has lens implants, right shoulder, rt foot 2nd toe pinning done, lt ear implant(plantinum wire implant done in 1991) Past Anesthesia/Blood Transfusion Reactions: No Reported Reaction Additional Past Anesthesia/Blood Transfusion Reaction / Comment(s): claustrophobia Past Psychological History: No Psychological Hx Reported Smoking Status: Former smoker Past Alcohol Use History: None Reported Past Drug Use History: None Reported - Past Family History Mother Family Medical History: No Reported History Additional Family Medical History / Comment(s): . Father Additional Family Medical History / Comment(s): age 59 "heart" <Chet Jauregui - Last Filed: 01/26/21 15:37> General Exam Limitations: no limitations General appearance: alert, in no apparent distress Head exam: Present: atraumatic, normocephalic, normal inspection Eye exam: Present: normal appearance, PERRL, EOMI. Absent: scleral icterus, conjunctival injection, periorbital swelling Neck exam: Present: normal inspection. Absent: tenderness, meningismus, lymphadenopathy Respiratory exam: Present: decreased breath sounds. Absent: respiratory distress, wheezes, rales, rhonchi, stridor Cardiovascular Exam: Present: regular rate, normal rhythm, normal heart sounds. Absent: systolic murmur, diastolic murmur, rubs, gallop, clicks GI/Abdominal exam: Present: soft, normal bowel sounds. Absent: distended, tenderness, guarding, rebound, rigid Extremities exam: Present: normal inspection, full ROM, normal capillary refill. Absent: tenderness, pedal edema, joint swelling, calf tenderness Neurological exam: Present: alert, oriented X3, CN II-XII intact Psychiatric exam: Present: normal affect, normal mood Skin exam: Present: warm, dry, intact, normal color. Absent: rash <Chet Jauregui - Last Filed: 01/26/21 15:37> Limitations: no limitations General appearance: alert, in no apparent distress Head exam: Present: normocephalic Eye exam: Present: normal appearance Neck exam: Present: normal inspection Respiratory exam: Present: rales (Right base) Cardiovascular Exam: Present: tachycardia, irregular rhythm GI/Abdominal exam: Present: soft. Absent: tenderness Extremities exam: Present: normal inspection. Absent: pedal edema, calf tenderness Neurological exam: Present: alert Psychiatric exam: Present: normal affect, normal mood Skin exam: Present: normal color <Galindo Rodriguez - Last Filed: 01/26/21 18:33> Course <Galindo Rodriguez - Last Filed: 01/26/21 18:33> Vital Signs 01/26/21 01/26/21 01/26/21 15:34 17:40 18:09 Temperature 100 F H 100.1 F H Pulse Rate 104 H 94 Respiratory 18 18 Rate Blood Pressure 129/76 145/62 O2 Sat by Pulse 90 L 98 Oximetry - Reevaluation(s) Reevaluation #1: 01/26/21 17:16 EKG shows sinus tachycardia 108. CO 144. QRS 84. QT 308. QTC 412. Normal axis. Q wave in V1. No acute ST change. 01/26/21 18:32 Patient meet sepsis criteria diagnosed at 1832. Blood culture and lactic acid and IV antibiotic's will be ordered. (Galindo Rodriguez) Medical Decision Making - Lab Data Result diagrams: 01/26/21 17:08 01/26/21 17:08 - Radiology Data Radiology results: image reviewed (Chest x-ray shows right lower lobe consolidation) <Galindo Rodriguez - Last Filed: 01/26/21 18:33> - Medical Decision Making Patient evaluated. Patient and family updated on results and plan. Case was discussed with Dr. Dove, who will consult for his patient. Dr. Mayfield has been paged for admission. (Galindo Rodriguez) - Lab Data Lab Results 01/26/21 01/26/21 01/26/21 Range/Units 17:02 17:08 17:08 WBC 33.1 H (3.8-10.6) k/uL RBC 3.68 L (3.80-5.40) m/uL Hgb 10.1 L (11.4-16.0) gm/dL Hct 29.8 L (34.0-46.0) % MCV 81.0 (80.0-100.0) fL MCH 27.5 (25.0-35.0) pg MCHC 34.0 (31.0-37.0) g/dL RDW 15.3 (11.5-15.5) % Plt Count 774 H (150-450) k/uL MPV 6.6 Neutrophils % (Manual) 87 % Band Neuts % (Manual) 6 % Lymphocytes % (Manual) 3 % Monocytes % (Manual) 4 % Neutrophils # (Manual) 30.70 H (1.3-7.7) k/uL Lymphocytes # (Manual) 0.99 L (1.0-4.8) k/uL Monocytes # (Manual) 1.32 H (0-1.0) k/uL Nucleated RBCs 0 (0-0) /100 WBC Manual Slide Review Performed Toxic Granulation Present Rouleaux Present PT (9.0-12.0) sec INR (<1.2) APTT (22.0-30.0) sec Sodium 122 L (137-145) mmol/L Potassium 2.9 L (3.5-5.1) mmol/L Chloride 78 L (98-107) mmol/L Carbon Dioxide 36 H (22-30) mmol/L Anion Gap 8 mmol/L BUN 20 H (7-17) mg/dL Creatinine 0.38 L (0.52-1.04) mg/dL Est GFR (CKD-EPI)AfAm >90 (>60 ml/min/1.73 sqM) Est GFR (CKD-EPI)NonAf >90 (>60 ml/min/1.73 sqM) Glucose 123 H (74-99) mg/dL Plasma Lactic Acid Yovani (0.7-2.0) mmol/L Calcium 8.9 (8.4-10.2) mg/dL Total Bilirubin 0.6 (0.2-1.3) mg/dL AST 29 (14-36) U/L ALT 16 (4-34) U/L Alkaline Phosphatase 115 (38-126) U/L Total Protein 6.3 (6.3-8.2) g/dL Albumin 3.6 (3.5-5.0) g/dL Coronavirus (PCR) Not Detected (Not Detectd) 01/26/21 01/26/21 Range/Units 17:08 17:08 WBC (3.8-10.6) k/uL RBC (3.80-5.40) m/uL Hgb (11.4-16.0) gm/dL Hct (34.0-46.0) % MCV (80.0-100.0) fL MCH (25.0-35.0) pg MCHC (31.0-37.0) g/dL RDW (11.5-15.5) % Plt Count (150-450) k/uL MPV Neutrophils % (Manual) % Band Neuts % (Manual) % Lymphocytes % (Manual) % Monocytes % (Manual) % Neutrophils # (Manual) (1.3-7.7) k/uL Lymphocytes # (Manual) (1.0-4.8) k/uL Monocytes # (Manual) (0-1.0) k/uL Nucleated RBCs (0-0) /100 WBC Manual Slide Review Toxic Granulation Rouleaux PT 12.1 H (9.0-12.0) sec INR 1.2 H (<1.2) APTT 24.5 (22.0-30.0) sec Sodium (137-145) mmol/L Potassium (3.5-5.1) mmol/L Chloride (98-107) mmol/L Carbon Dioxide (22-30) mmol/L Anion Gap mmol/L BUN (7-17) mg/dL Creatinine (0.52-1.04) mg/dL Est GFR (CKD-EPI)AfAm (>60 ml/min/1.73 sqM) Est GFR (CKD-EPI)NonAf (>60 ml/min/1.73 sqM) Glucose (74-99) mg/dL Plasma Lactic Acid Yovani 1.0 (0.7-2.0) mmol/L Calcium (8.4-10.2) mg/dL Total Bilirubin (0.2-1.3) mg/dL AST (14-36) U/L ALT (4-34) U/L Alkaline Phosphatase (38-126) U/L Total Protein (6.3-8.2) g/dL Albumin (3.5-5.0) g/dL Coronavirus (PCR) (Not Detectd) Critical Care Time Critical Care Time: Yes Total Critical Care Time: 33 <Galindo Rodriguez - Last Filed: 01/26/21 18:33> Disposition <Chet Jauregui - Last Filed: 01/26/21 15:37> Is patient prescribed a controlled substance at d/c from ED?: No Decision Time: 18:33 <Galindo Rodriguez - Last Filed: 01/26/21 18:33> Clinical Impression: Pneumonia, Sepsis, Hyponatremia, Dehydration Disposition: ADMITTED IP TO THIS [facility] Condition: Serious Referrals: Kamari Mayfield DO [Primary Care Provider] - 1-2 days
[2021-01-26] MEDS ORDERED: ACETAMINOPHEN TAB 325 MG TAB PO STA (15:39)
[2021-01-26] MEDS ORDERED: SODIUM CHLORIDE 0.9% 1,000 ML IV SCH (16:30)
[2021-01-26 17:19] LABS: HCT 29.8 % (34.0-46.0); HGB 10.1 gm/dL (11.4-16.0); MCH 27.5 pg (25.0-35.0); Mean Platelet Volume 6.6; Platelet Count 774 k/uL (150-450); RBC 3.68 m/uL (3.80-5.40); RDW 15.3 % (11.5-15.5); WBC 33.1 k/uL (3.8-10.6)
[2021-01-26 17:27] LABS: ALT 16 U/L (4-34); AST 29 U/L (14-36); African American GFR (CKD) >90 (>60 ml/min/1.73 sqM); Albumin 3.6 g/dL (3.5-5.0); Alkaline Phosphatase 115 U/L (38-126); Anion Gap 8 mmol/L; Blood Urea Nitrogen 20 mg/dL (7-17); Calcium 8.9 mg/dL (8.4-10.2); Carbon Dioxide 36 mmol/L (22-30); Chloride 78 mmol/L (98-107); Glucose 123 mg/dL (74-99); Non-African American GFR(CKD) >90 (>60 ml/min/1.73 sqM); Potassium 2.9 mmol/L (3.5-5.1); Sodium 122 mmol/L (137-145); Total Bilirubin 0.6 mg/dL (0.2-1.3); Total Protein 6.3 g/dL (6.3-8.2)
[2021-01-26 17:32] LABS: INR 1.2 (<1.2); Partial Thromboplastin Time 24.5 sec (22.0-30.0); Prothrombin Time 12.1 sec (9.0-12.0)
[2021-01-26 17:39] LABS: Band Neutrophils % 6 %; Lymphocytes # (M) 0.99 k/uL (1.0-4.8); Monocytes # (M) 1.32 k/uL (0-1.0); Neutrophils % (M) 87 %; Nucleated Red Blood Cells 0 /100 WBC (0-0); Rouleaux Present; Total Cells Counted 100
[2021-01-26 17:40] LABS: Toxic Granulation Present
--- NOTE | 2021-01-26 17:47 | XR ---
EXAMINATION TYPE: XR chest 1V portable DATE OF EXAM: 01/26/2021 COMPARISON: 12/12/2020 HISTORY: Cough TECHNIQUE: Single view FINDINGS: There is some consolidation and atelectasis in the right lower lobe. There is minimal subse gmental atelectasis left lung base. There is no heart failure. There is neural stimulator in the thor acic spine. Thoracic aorta is atheromatous. IMPRESSION: Extensive consolidation at the right lung base is new compared to recent exam. Atelectasi s left lung base unchanged. No heart failure.
[2021-01-26] MEDS ORDERED: POTASSIUM CHLORIDE 20 MEQ in WATER FOR INJECTION 1 100ML.BAG IVPB STA (18:24)
[2021-01-26] MEDS ORDERED: POTASSIUM CHLORIDE ER 20 MEQ TAB.ER PO STA (18:24)
[2021-01-26 18:34] LABS: Appearance,Urine Cloudy (Clear); Bacteria,Urine Rare /hpf; Bilirubin,Urine Negative (Negative); Blood,Urine Negative (Negative); Color,Urine Yellow; Glucose,Urine (UA) Negative (Negative); Hyaline Casts,Urine 1 /lpf (0-2); Ketones,Urine Trace (Negative); Leukocyte Esterase,Urine Large (Negative); Mucus,Urine Rare /hpf; Nitrite,Urine Negative (Negative); Protein,Urine Trace (Negative); RBC,Urine 3 /hpf (0-5); Specific Gravity,Urine 1.017 (1.001-1.035); Squamous Epithelial Cell,Urine 3 /hpf (0-4); Urobilinogen,Urine <2.0 mg/dL (<2.0); WBC,Urine 27 /hpf (0-5)
[2021-01-26] MEDS ORDERED: CEFEPIME 2 GM in SODIUM CHLORIDE 0.9% 100 ML IVPB STA (18:34)
[2021-01-26] MEDS ORDERED: AZITHROMYCIN 500 MG in SODIUM CHLORIDE 0.9% 250 ML IVPB STA (18:34)
[2021-01-26] MEDS ORDERED: PNEUMONIA PROTOCOL UTILIZED 1 EACH MISC PO PRN (18:34)
[2021-01-26] MEDS ORDERED: SODIUM CHLORIDE 0.9% 1,000 ML IV STA (18:37)
[2021-01-26] MEDS ORDERED: NALOXONE 0.4 MG/ML 1 ML VIAL IV PRN (18:38)
--- NOTE | 2021-01-27 06:42 | XR ---
EXAM: XR Chest, 1 View CLINICAL HISTORY: pneumonia TECHNIQUE: Frontal view of the chest. COMPARISON: January 26, 2021 FINDINGS: Lungs: Persistent extensive consolidation in the right lung base. Pleural space: There may also be a small right pleural effusion. There is no evidence of pneumothorax. Heart: Unremarkable. No cardiomegaly. Mediastinum: Unremarkable. Bones/joints: No acute findings. IMPRESSION: Persistent dense consolidation in the right lung base..
[2021-01-27 07:14] LABS: Basophils % (A) 0 %; Eosinophils # (A) 0.1 k/uL (0-0.7); Eosinophils % (A) 1 %; HCT 25.9 % (34.0-46.0); HGB 8.7 gm/dL (11.4-16.0); Lymphocytes # (A) 0.9 k/uL (1.0-4.8); Lymphocytes % (A) 4 %; MCH 27.8 pg (25.0-35.0); MCHC 33.8 g/dL (31.0-37.0); MCV 82.4 fL (80.0-100.0); Mean Platelet Volume 6.7; Monocytes # (A) 0.8 k/uL (0-1.0); Monocytes % (A) 3 %; Neutrophils # (A) 22.8 k/uL (1.3-7.7); Neutrophils % (A) 92 %; Platelet Count 690 k/uL (150-450); RBC 3.14 m/uL (3.80-5.40); RDW 15.4 % (11.5-15.5); WBC 24.9 k/uL (3.8-10.6)
[2021-01-27 07:38] LABS: ALT 12 U/L (4-34); AST 23 U/L (14-36); African American GFR (CKD) >90 (>60 ml/min/1.73 sqM); Albumin 2.7 g/dL (3.5-5.0); Albumin/Globulin Ratio 1.1; Alkaline Phosphatase 98 U/L (38-126); Anion Gap 6 mmol/L; Blood Urea Nitrogen 11 mg/dL (7-17); Calcium 8.1 mg/dL (8.4-10.2); Carbon Dioxide 32 mmol/L (22-30); Chloride 89 mmol/L (98-107); Globulin 2.5 g/dL; Glucose 104 mg/dL (74-99); Magnesium 1.7 mg/dL (1.6-2.3); Non-African American GFR(CKD) >90 (>60 ml/min/1.73 sqM); Potassium 3.2 mmol/L (3.5-5.1); Sodium 127 mmol/L (137-145); Total Bilirubin 0.5 mg/dL (0.2-1.3); Total Protein 5.2 g/dL (6.3-8.2)
[2021-01-27] MEDS: CEFEPIME 2 GM in SODIUM CHLORIDE 0.9% 100 ML IVPB SCH ×2 (08:16→15:47)
[2021-01-27] MEDS ORDERED: Potassium Replacement Protocol 1 EACH MISC MISCELLANE PRN (09:19)
[2021-01-27] MEDS ORDERED: Magnesium Replacement Protocol 1 EACH MISC MISCELLANE PRN (09:20)
[2021-01-27] MEDS ORDERED: HEPARIN SODIUM,PORCINE 5,000 UNIT/ML 1 ML VIAL SQ SCH (09:30)
[2021-01-27] MEDS: oxyCODONE-APAP 7.5-325MG 1 EACH TAB PO PRN ×2 (10:44→15:46)
[2021-01-27] MEDS: METOPROLOL SUCCINATE (ER) 25 MG TAB.ER.24H PO SCH (10:45)
--- NOTE | 2021-01-27 11:54 | P.CNPUL ---
History of Present Illness Consult date: 01/27/21 Requesting physician: Kamari Mayfield Reason for consult: dyspnea, cough, pneumonia, abnormal CXR/CT, other Chief complaint: Pneumonia, sepsis, hyponatremia. History of present illness: This is an 80-year-old female that was evaluated in the emergency department on January 26. She was apparently brought in by her family. She apparently has a history of lung cancer, and is an ongoing tobacco user. She is apparently undergoing chemotherapy. The patient came in for increasing shortness of breath, fever, and cough. She recently had lab work that showed a low platelet count. Cough is apparently productive of green mucus. Apparently on the day of her evaluation in the emergency department, she was to receive chemotherapy. Because of fever, she came to the emergency room instead. Currently, the patient is poorly responsive and not a particularly good historian. She does arouse. She is currently not receiving any IV fluids. She's getting nasal cannula at 5 L. Rhythm on the monitor is atrial fibrillation. In addition, she has a history of gastroesophageal reflux disease, hypertension, osteoarthritis, migraine cephalgia, skin cancer, and chronic sinus disease. Chest x-ray shows a consolidation in the right lower lobe. It is almost masslike. White count is 24.9, hemoglobin 8.7, hematocrit 25.9, platelet count 690,000. PT 12.1, INR 1.2. Sodium 127, up from 122, potassium 3.2, chloride 89, CO2 32, anion gap 6, BUN 11, creatinine 0.32. Urine is yellow and cloudy, leukocyte esterase is largely positive. There are rare bacteria, and 27 WBCs in the urine. In addition, coronavirus testing was negative. Review of Systems REVIEW OF SYSTEMS: CONSTITUTIONAL: Weakness and fatigue, fever. NEUROLOGIC: [ Negative.] HEENT: [ Negative.] CARDIAC: [Negative.] PULMONARY: Cough, shortness of breath, phlegm production. GI: [Negative.] : [Negative.] RHEUMATOLOGIC: [ Negative.] IMMUNOLOGIC: [ Negative.] ENDOCRINE: [Negative. ] DERMATOLOGIC: [Negative.] Past Medical History Past Medical History: Cancer, GERD/Reflux, Hypertension, Osteoarthritis (OA) Additional Past Medical History / Comment(s): tumor in lung,hx migraines, hx skin cancer on nose, hx of sinus problems, severe dry mouth History of Any Multi-Drug Resistant Organisms: None Reported Past Surgical History: Back Surgery, Cholecystectomy, Hysterectomy, Orthopedic Surgery, Tonsillectomy Additional Past Surgical History / Comment(s): PAIN STIMULATOR IN BACK. eye lid surgery,james cataracts removed-has lens implants, right shoulder, rt foot 2nd toe pinning done, lt ear implant(plantinum wire implant done in 1991) Past Anesthesia/Blood Transfusion Reactions: No Reported Reaction Additional Past Anesthesia/Blood Transfusion Reaction / Comment(s): claustrophobia Past Psychological History: No Psychological Hx Reported Smoking Status: Former smoker Past Alcohol Use History: None Reported Past Drug Use History: None Reported - Past Family History Mother Family Medical History: No Reported History Additional Family Medical History / Comment(s): . Father Additional Family Medical History / Comment(s): age 59 "heart" Medications and Allergies Home Medications Medication Instructions Recorded Confirmed Type amLODIPine BESYLATE [Norvasc] 10 mg PO DAILY 01/26/16 01/26/21 History hydroCHLOROthiazide [Hydrodiuril] 25 mg PO DAILY 01/26/16 01/26/21 History Escitalopram [Lexapro] 5 mg PO DAILY 04/17/18 01/26/21 History Metoprolol Succinate (ER) [Toprol 25 mg PO QAM 04/17/18 01/26/21 History XL] oxyCODONE-APAP 7.5-325MG [Percocet 1 tab PO TID PRN 10/16/20 01/26/21 History 7.5-325 mg] Amitriptyline HCl [Elavil] 50 mg PO HS 01/26/21 01/26/21 History Furosemide [Lasix] 20 mg PO DAILY 01/26/21 01/26/21 History Ibuprofen [Motrin] 800 mg PO Q8H PRN 01/26/21 01/26/21 History Meloxicam 15 mg PO DAILY PRN 01/26/21 01/26/21 History Allergies Allergy/AdvReac Type Severity Reaction Status Date / Time Sulfa (Sulfonamide Allergy FEELS LIKE Verified 01/26/21 15:36 Antibiotics) BUGS ARE ALL OVER ME terbinafine [From Lamisil] Allergy FEELS LIKE Verified 01/26/21 15:36 BUGS ARE ALL OVER ME Physical Exam Osteopathic Statement: *. No significant issues noted on an osteopathic structural exam other than those noted in the History and Physical/Consult. Vitals: Vital Signs Temp Pulse Resp BP Pulse Ox 01/27/21 10:42 98.5 F 106 H 18 130/74 97 01/27/21 07:37 96 01/27/21 07:05 106 H 16 118/71 98 01/27/21 01:30 75 18 102/45 96 01/27/21 00:30 98.6 F 96 18 120/49 97 01/26/21 22:17 92 18 114/67 98 01/26/21 20:41 96 18 123/70 98 01/26/21 19:10 98.6 F 93 18 105/53 95 01/26/21 18:09 100.1 F H 01/26/21 17:40 94 18 145/62 98 01/26/21 15:34 100 F H 104 H 18 129/76 90 L Intake and Output 01/26/21 01/27/21 01/27/21 22:59 06:59 14:59 Other: Weight 58.06 kg Patient is very lethargic and somnolent, and does arouse, and answers basic questions. Seems to be a little out of it. No respiratory distress. Currently on nasal O2 at 5 L. HEENT examination is grossly unremarkable. Mucous membranes are moist. No oral lesions. Neck supple. Full range of motion. No adenopathy thyromegaly or neck vein distention. Cardiovascular examination reveals an irregular rhythm and rate. S1-S2 normal. No S3 or S4. No discernible murmur noted. Heart rate 106. Lungs reveal diminished breath sounds throughout. Patient does not take deep breaths. Diffuse rhonchi noted. No wheezes or crackles. Abdomen soft bowel sounds are heard. No masses or tenderness. Extremities are intact. No cyanosis clubbing or edema. Skin is without rash or lesion. Neurologic examination is brief but nonfocal. Results - Laboratory Findings CBC and BMP: 01/27/21 06:54 01/27/21 06:54 PT/INR, D-dimer PT 12.1 sec (9.0-12.0) H 01/26/21 17:08 INR 1.2 (<1.2) H 01/26/21 17:08 Abnormal lab findings: Abnormal Labs 01/26/21 01/26/21 01/26/21 17:08 17:08 17:08 WBC 33.1 H RBC 3.68 L Hgb 10.1 L Hct 29.8 L Plt Count 774 H Neutrophils # Neutrophils # (Manual) 30.70 H Lymphocytes # Lymphocytes # (Manual) 0.99 L Monocytes # (Manual) 1.32 H PT 12.1 H INR 1.2 H Sodium 122 L Potassium 2.9 L Chloride 78 L Carbon Dioxide 36 H BUN 20 H Creatinine 0.38 L Glucose 123 H Calcium Total Protein Albumin Urine Appearance Urine Protein Urine Ketones Ur Leukocyte Esterase Urine WBC Urine Bacteria Urine Mucus 01/26/21 01/27/21 01/27/21 18:09 06:54 06:54 WBC 24.9 H RBC 3.14 L Hgb 8.7 L Hct 25.9 L Plt Count 690 H Neutrophils # 22.8 H Neutrophils # (Manual) Lymphocytes # 0.9 L Lymphocytes # (Manual) Monocytes # (Manual) PT INR Sodium 127 L Potassium 3.2 L Chloride 89 L Carbon Dioxide 32 H BUN Creatinine 0.32 L Glucose 104 H Calcium 8.1 L Total Protein 5.2 L Albumin 2.7 L Urine Appearance Cloudy H Urine Protein Trace H Urine Ketones Trace H Ur Leukocyte Esterase Large H Urine WBC 27 H Urine Bacteria Rare H Urine Mucus Rare H - Diagnostic Findings Chest x-ray: image reviewed Assessment and Plan Assessment: Acute hypoxemic respiratory failure, secondary to right lower lobe pneumonia. History of small cell lung cancer, currently under going chemotherapy. Recent bronchoscopy on December 12, 2020, for right upper lobe mass, positive for small cell lung cancer Suspect underlying COPD. Hyponatremia. Anemia. Ongoing tobacco use with nicotine addiction. History of skin cancer. History of gastroesophageal reflux disease. History of hypertension. History of migraine cephalgia. History of chronic sinus disease. Plan: Plan dated . Currently, the patient's getting nasal O2 at 5 L. She was started on Maxipime and azithromycin as an antibiotic. She recently had bronchoscopy and biopsy done by Dr. Linda. The diagnosis was small cell lung cancer. The patient apparently has started chemotherapy. She appears to be very weak. She looks very chronically ill. Prognosis will not be very good in this patient's overall. In addition, she is anemic, and hyponatremic. 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 Additional recommendations suggestions are forthcoming. We will continue to follow this patient make recommendations for appropriate. Prognosis is very poor. Time with Patient: Greater than 30
[2021-01-27] MEDS: PANTOPRAZOLE 40 MG/10 ML VIAL IVP SCH (12:16)
--- NOTE | 2021-01-27 14:34 | P.HPIM ---
History of Present Illness H&P Date: 01/27/21 Chief Complaint: Worsening shortness of breath This is an 80-year-old female with history of small cell lung cancer, currently undergoing chemotherapy, gastroesophageal reflux disease, hypertension, osteoarthritis, pain stimulator in back, former extensive nicotine dependence- quit in 2017 and multiple other medical issues, presented to the ER with complaints of worsening shortness of breath, cough and fever. Reports she was scheduled for her second chemotherapy, she was weak with fever and was referred to the ER. Payton/Green sputum reported. On admission T-max 100.1, mild tachycardia, hypoxic-90% on room air, requiring 2 L nasal cannula to maintain O2 sats in the mid to high 90s. WBC 33.1, hemoglobin 10.1, platelets 774, neutrophils 30.7, lymphocytes 0.99, sodium 122 up to 127, potassium 2.9-now 3.2, carb 36, BUN 20, creatinine 0.38, lactic acid 1, magnesium 1.7, UA reporting rare bacteria, large leukocytes, urine WBCs 27, negative for nitrates, urine culture in progress. Lai virus not detected. Chest x-ray reported extensive consolidation of the right lung base new compared to recent exam, atelectasis left lung base unchanged with no heart failure. EKG reported sinus tachycardia with PACs. Review of Systems ROS Other: All systems not noted in ROS Statement are negative. ROS Statement: Those systems with pertinent positive or pertinent negative responses have been documented in the HPI. Past Medical History Past Medical History: Cancer, GERD/Reflux, Hypertension, Osteoarthritis (OA) Additional Past Medical History / Comment(s): tumor in lung,hx migraines, hx skin cancer on nose, hx of sinus problems, severe dry mouth History of Any Multi-Drug Resistant Organisms: None Reported Past Surgical History: Back Surgery, Cholecystectomy, Hysterectomy, Orthopedic Surgery, Tonsillectomy Additional Past Surgical History / Comment(s): PAIN STIMULATOR IN BACK. eye lid surgery,james cataracts removed-has lens implants, right shoulder, rt foot 2nd toe pinning done, lt ear implant(plantinum wire implant done in 1991) Past Anesthesia/Blood Transfusion Reactions: No Reported Reaction Additional Past Anesthesia/Blood Transfusion Reaction / Comment(s): claustrophobia Past Psychological History: No Psychological Hx Reported Smoking Status: Former smoker Past Alcohol Use History: None Reported Past Drug Use History: None Reported - Past Family History Mother Family Medical History: No Reported History Additional Family Medical History / Comment(s): . Father Additional Family Medical History / Comment(s): age 59 "heart" Medications and Allergies Home Medications Medication Instructions Recorded Confirmed Type amLODIPine BESYLATE [Norvasc] 10 mg PO DAILY 01/26/16 01/26/21 History hydroCHLOROthiazide [Hydrodiuril] 25 mg PO DAILY 01/26/16 01/26/21 History Escitalopram [Lexapro] 5 mg PO DAILY 04/17/18 01/26/21 History Metoprolol Succinate (ER) [Toprol 25 mg PO QAM 04/17/18 01/26/21 History XL] oxyCODONE-APAP 7.5-325MG [Percocet 1 tab PO TID PRN 10/16/20 01/26/21 History 7.5-325 mg] Amitriptyline HCl [Elavil] 50 mg PO HS 01/26/21 01/26/21 History Furosemide [Lasix] 20 mg PO DAILY 01/26/21 01/26/21 History Ibuprofen [Motrin] 800 mg PO Q8H PRN 01/26/21 01/26/21 History Meloxicam 15 mg PO DAILY PRN 01/26/21 01/26/21 History Allergies Allergy/AdvReac Type Severity Reaction Status Date / Time Sulfa (Sulfonamide Allergy FEELS LIKE Verified 01/26/21 15:36 Antibiotics) BUGS ARE ALL OVER ME terbinafine [From Lamisil] Allergy FEELS LIKE Verified 01/26/21 15:36 BUGS ARE ALL OVER ME Physical Exam Vitals: Vital Signs Temp Pulse Resp BP Pulse Ox 01/27/21 07:37 96 01/27/21 07:05 106 H 16 118/71 98 01/27/21 01:30 75 18 102/45 96 01/27/21 00:30 98.6 F 96 18 120/49 97 01/26/21 22:17 92 18 114/67 98 01/26/21 20:41 96 18 123/70 98 01/26/21 19:10 98.6 F 93 18 105/53 95 01/26/21 18:09 100.1 F H 01/26/21 17:40 94 18 145/62 98 01/26/21 15:34 100 F H 104 H 18 129/76 90 L Intake and Output 01/26/21 01/27/21 01/27/21 22:59 06:59 14:59 Other: Weight 58.06 kg PHYSICAL EXAM: VITAL SIGNS: As above GENERAL: Sitting up in chair alongside stretcher, no acute distress HEENT: Conjunctivae normal. eyes normal. NECK: No JVD. No thyroid enlargement. No LNs CARDIOVASCULAR: S1, S2, irregular. Tachycardic ,No murmur RESPIRATION: Breath sounds diminished in the bases. Scattered rhonchi , bilateral crackles. No bronchial breathing. ABDOMEN: Soft, nontender . No guarding. no masses palpable. No ascites, No hepatosplenomegaly.Bowel sounds heard. LEGS: No edema. no swelling PSYCHIATRY: Alert and oriented X3, mood and affect normal. NERVOUS SYSTEM: Cranial N 2-12 grossly normal. Moves all 4 limbs. Diffuse weakness, No focal deficits. Strength and sensation grossly intact.. Skin: Warm and dry, no rash Results CBC & Chem 7: 01/27/21 06:54 01/27/21 06:54 Labs: Abnormal Lab Results - Last 24 Hours (Table) 01/26/21 01/26/21 01/26/21 Range/Units 17:08 17:08 17:08 WBC 33.1 H (3.8-10.6) k/uL RBC 3.68 L (3.80-5.40) m/uL Hgb 10.1 L (11.4-16.0) gm/dL Hct 29.8 L (34.0-46.0) % Plt Count 774 H (150-450) k/uL Neutrophils # (1.3-7.7) k/uL Neutrophils # (Manual) 30.70 H (1.3-7.7) k/uL Lymphocytes # (1.0-4.8) k/uL Lymphocytes # (Manual) 0.99 L (1.0-4.8) k/uL Monocytes # (Manual) 1.32 H (0-1.0) k/uL PT 12.1 H (9.0-12.0) sec INR 1.2 H (<1.2) Sodium 122 L (137-145) mmol/L Potassium 2.9 L (3.5-5.1) mmol/L Chloride 78 L (98-107) mmol/L Carbon Dioxide 36 H (22-30) mmol/L BUN 20 H (7-17) mg/dL Creatinine 0.38 L (0.52-1.04) mg/dL Glucose 123 H (74-99) mg/dL Calcium (8.4-10.2) mg/dL Total Protein (6.3-8.2) g/dL Albumin (3.5-5.0) g/dL Urine Appearance (Clear) Urine Protein (Negative) Urine Ketones (Negative) Ur Leukocyte Esterase (Negative) Urine WBC (0-5) /hpf Urine Bacteria (None) /hpf Urine Mucus (None) /hpf 01/26/21 01/27/21 01/27/21 Range/Units 18:09 06:54 06:54 WBC 24.9 H (3.8-10.6) k/uL RBC 3.14 L (3.80-5.40) m/uL Hgb 8.7 L (11.4-16.0) gm/dL Hct 25.9 L (34.0-46.0) % Plt Count 690 H (150-450) k/uL Neutrophils # 22.8 H (1.3-7.7) k/uL Neutrophils # (Manual) (1.3-7.7) k/uL Lymphocytes # 0.9 L (1.0-4.8) k/uL Lymphocytes # (Manual) (1.0-4.8) k/uL Monocytes # (Manual) (0-1.0) k/uL PT (9.0-12.0) sec INR (<1.2) Sodium 127 L (137-145) mmol/L Potassium 3.2 L (3.5-5.1) mmol/L Chloride 89 L (98-107) mmol/L Carbon Dioxide 32 H (22-30) mmol/L BUN (7-17) mg/dL Creatinine 0.32 L (0.52-1.04) mg/dL Glucose 104 H (74-99) mg/dL Calcium 8.1 L (8.4-10.2) mg/dL Total Protein 5.2 L (6.3-8.2) g/dL Albumin 2.7 L (3.5-5.0) g/dL Urine Appearance Cloudy H (Clear) Urine Protein Trace H (Negative) Urine Ketones Trace H (Negative) Ur Leukocyte Esterase Large H (Negative) Urine WBC 27 H (0-5) /hpf Urine Bacteria Rare H (None) /hpf Urine Mucus Rare H (None) /hpf Microbiology - Last 24 Hours (Table) 01/26/21 18:09 Urine Culture - Preliminary Urine,Voided Assessment and Plan Assessment: Sepsis secondary to acute right lower lobe pneumonia Acute hypoxic respiratory failure secondary to the above Dehydration Hyponatremia Generalized weakness, medical debility, probably secondary to chemotherapy as well as infection Thoracic spine neurostimulator Small cell Lung cancer, currently undergoing chemotherapy Anemia secondary to chemotherapy COPD Extensive lifelong history of smoking, quit in 2017 Gastroesophageal reflux disease Hypertension Migraines,history of History of skin cancer Hypokalemia Plan: Continue on current medication regime ,monitoring and symptomatic t reatment. Maintain nebulized bronchodilators, antibiotics of azithromycin, cefepime, gentle IV fluid hydration. Potassium and magnesium replacement as per protocols ordered. Pulmonary consult in place, recommendations pending. Prognosis guarded given multiple complex medical issues. The impression and plan of care has been dictated as directed. : I performed a history and examination of this patient, discussed the same with the dictator. I agree with the dictator's note ,documented as a scribe. Any additional findings or plans will be noted.
[2021-01-27] MEDS ORDERED: AZITHROMYCIN 500 MG in SODIUM CHLORIDE 0.9% 250 ML IVPB SCH ×2 (18:00→20:00)
[2021-01-27] MEDS: AMITRIPTYLINE HCL 50 MG TAB PO SCH (20:12)
--- NOTE | 2021-01-27 21:39 | P.CONS ---
History of Present Illness - Reason for Consult Consult date: 01/27/21 Lung Cancer Requesting physician: Galindo Rodriguez - Chief Complaint SOB - History of Present Illness Laura is a frail pleasant woman of Dr. Cash who initially presented with weakness, anorexia and increasing SOB. CXR revealed new right mid lung 3 cm nodule, CT Scan revealed 2.9X2.1 RML mass suspicious for primary bronchogenic carcinoma, as well as, suspicious 2.1X1.5 cm R Hilar lymphadenopathy, PET Scan identified significant suspicious uptake at both sites in R lung without extra- thoracic areas of involvement. She had navigational bronchoscopy by Dr Linda on 12/19/2020 revealing Small cell Carcinoma. When patient was seen today, she was in wheelchair, which she stated due to weakness and long walk, she uses a quad thurston for ambulation and has suffered from chronic back pain and diffuse arthralgias for years due to advanced osteoarthritis, Laura smoked 2 PPD for 50 years and is now "Vapping". Denies ETOH use. Admitted anorexia an 5-10 lbs weight loss in last 2 months. 01/22/21: Feels tired, no N/V after chemotherapy, had changes in taste. Denies SOB. The patient quit smoking. She is now hospitalized with shortness of breath. Review of Systems All systems: negative Past Medical History Past Medical History: Cancer, GERD/Reflux, Hearing Disorder / Deafness, Hypertension, Osteoarthritis (OA) Additional Past Medical History / Comment(s): R upper lung cancer on chemo with last treatment approximately 3 weeks ago, recent low platlet count, melanoma skin cancer removed from nose, arthritis in multiple joints, chronic low back pain, migraines, occasional bilateral lower leg edema, "kink in my bowel", severe dry mouth, CHILKAT, sinus problems. History of Any Multi-Drug Resistant Organisms: None Reported Past Surgical History: Back Surgery, Cholecystectomy, Hysterectomy, Orthopedic Surgery, Tonsillectomy Additional Past Surgical History / Comment(s): 12/12/20 bronchosc opy/biopsy/brushings, R shoulder rotator cuff surgery, lumbar pain stimulator (off), pain clinic procedures, R foot 2nd toe pinning, 1991 L ear plantinum wire implant, bilateral eyelid blepharoplasty, colonoscopy. Past Anesthesia/Blood Transfusion Reactions: No Reported Reaction Additional Past Anesthesia/Blood Transfusion Reaction / Comm: claustrophobia Smoking Status: Former smoker - Past Family History Mother Family Medical History: No Reported History Additional Family Medical History / Comment(s): Mother lived to be 84 yrs old. Father Additional Family Medical History / Comment(s): Father at the age of 59 yrs when his "heart exploded" Medications and Allergies Home Medications Medication Instructions Recorded Confirmed Type amLODIPine BESYLATE [Norvasc] 10 mg PO DAILY 01/26/16 01/26/21 History hydroCHLOROthiazide [Hydrodiuril] 25 mg PO DAILY 01/26/16 01/26/21 History Escitalopram [Lexapro] 5 mg PO DAILY 04/17/18 01/26/21 History Metoprolol Succinate (ER) [Toprol 25 mg PO QAM 04/17/18 01/26/21 History XL] oxyCODONE-APAP 7.5-325MG [Percocet 1 tab PO TID PRN 10/16/20 01/26/21 History 7.5-325 mg] Amitriptyline HCl [Elavil] 50 mg PO HS 01/26/21 01/26/21 History Furosemide [Lasix] 20 mg PO DAILY 01/26/21 01/26/21 History Ibuprofen [Motrin] 800 mg PO Q8H PRN 01/26/21 01/26/21 History Meloxicam 15 mg PO DAILY PRN 01/26/21 01/26/21 History Allergies Allergy/AdvReac Type Severity Reaction Status Date / Time Sulfa (Sulfonamide Allergy FEELS LIKE Verified 01/26/21 15:36 Antibiotics) BUGS ARE ALL OVER ME terbinafine [From Lamisil] Allergy FEELS LIKE Verified 01/26/21 15:36 BUGS ARE ALL OVER ME Physical Exam Vitals: Vital Signs Temp Pulse Resp BP Pulse Ox 01/27/21 17:55 76 18 104/61 98 01/27/21 10:42 98.5 F 106 H 18 130/74 97 01/27/21 07:37 96 01/27/21 07:05 106 H 16 118/71 98 01/27/21 01:30 75 18 102/45 96 01/27/21 00:30 98.6 F 96 18 120/49 97 01/26/21 22:17 92 18 114/67 98 Intake and Output 01/27/21 01/27/21 01/27/21 06:59 14:59 22:59 Other: Weight 58.06 kg - Constitutional General appearance: mild distress, thin - EENT Eyes: EOMI ENT: hard of hearing, NA/AT - Neck Neck: normal ROM - Respiratory Respiratory: bilateral: diminished, rhonchi (mild increase in effort ) - Cardiovascular Rhythm: regularly irregular - Gastrointestinal General gastrointestinal: soft, tenderness - Integumentary Integumentary: pale - Musculoskeletal Musculoskeletal: generalized weakness - Psychiatric Psychiatric: A&O x's 3 Results CBC & Chem 7: 01/27/21 06:54 01/27/21 06:54 Labs: Abnormal Lab Results - Last 24 Hours (Table) 01/27/21 01/27/21 Range/Units 06:54 06:54 WBC 24.9 H (3.8-10.6) k/uL RBC 3.14 L (3.80-5.40) m/uL Hgb 8.7 L (11.4-16.0) gm/dL Hct 25.9 L (34.0-46.0) % Plt Count 690 H (150-450) k/uL Neutrophils # 22.8 H (1.3-7.7) k/uL Lymphocytes # 0.9 L (1.0-4.8) k/uL Sodium 127 L (137-145) mmol/L Potassium 3.2 L (3.5-5.1) mmol/L Chloride 89 L (98-107) mmol/L Carbon Dioxide 32 H (22-30) mmol/L Creatinine 0.32 L (0.52-1.04) mg/dL Glucose 104 H (74-99) mg/dL Calcium 8.1 L (8.4-10.2) mg/dL Total Protein 5.2 L (6.3-8.2) g/dL Albumin 2.7 L (3.5-5.0) g/dL Microbiology - Last 24 Hours (Table) 01/26/21 17:15 Blood Culture - Preliminary Blood No Growth after 24 hours 01/26/21 17:33 Blood Culture - Preliminary Blood No Growth after 24 hours 01/26/21 18:09 Urine Culture - Preliminary Urine,Voided Abdominal x-ray: report reviewed Assessment and Plan Plan: Assessment and PLan: Extensive stage small cell: - Status post cycle one of chemo, plan for cycle two today however had fever on presentation and was sent to er for further evaluation - Hold for now Fever: - Cano Cultures - Antibiostic - Likely pneumonia Pneumonia and Acute respiratory insuff: - Supportive care Physician attest: i have completed the full history and physical and agree with above dictation, dictated as a scribe
[2021-01-28] MEDS: CEFEPIME 2 GM in SODIUM CHLORIDE 0.9% 100 ML IVPB SCH ×3 (00:47→16:05)
[2021-01-28 09:16] LABS: HCT 28.8 % (37.2-46.3); HGB 8.9 g/dL (12.0-15.0); MCH 27.1 pg (27.0-32.0); MCHC 30.9 g/dL (32.0-37.0); MCV 87.5 fL (80.0-97.0); Mean Platelet Volume 9.4 fL (9.5-12.2); Platelet Count 719 X 10*3/uL (140-440); RBC 3.29 X 10*6/uL (4.10-5.20); RDW 15.8 % (11.5-14.5); WBC 26.92 X 10*3/uL (4.50-10.00)
[2021-01-28] MEDS: oxyCODONE-APAP 7.5-325MG 1 EACH TAB PO PRN ×2 (09:23→17:41)
[2021-01-28] MEDS: ESCITALOPRAM 5 MG TAB PO SCH (09:24)
[2021-01-28] MEDS: METOPROLOL SUCCINATE (ER) 25 MG TAB.ER.24H PO SCH (09:24)
[2021-01-28] MEDS: PANTOPRAZOLE 40 MG/10 ML VIAL IVP SCH (09:25)
[2021-01-28 09:59] LABS: African American GFR (CKD) 124.5 (60.0-200.0); Anion Gap 7.6 mmol/L (4.00-12.00); BUN/Creat Ratio 26.67 Ratio (12.00-20.00); Calcium 8.5 mg/dL (8.7-10.3); Carbon Dioxide 32.4 mmol/L (21.6-31.8); Magnesium 2.2 mg/dL (1.5-2.4); Non-African American GFR(CKD) 107.4 (60.0-200.0); Potassium 3.4 mmol/L (3.5-5.5)
[2021-01-28] MEDS ORDERED: Potassium Replacement Protocol 1 EACH MISC MISCELLANE PRN (11:14)
[2021-01-28] MEDS: POTASSIUM CHLORIDE ER 20 MEQ TAB.ER PO SCH ×2 (11:53→13:10)
[2021-01-28 12:11] LABS: Basophils # (A) 0.06 X 10*3/uL (0.00-0.10); Basophils % (A) 0.2 %; Eosinophils # (A) 0.04 X 10*3/uL (0.04-0.35); Eosinophils % (A) 0.1 %; Lymphocytes # (A) 2.03 X 10*3/uL (0.90-5.00); Lymphocytes % (A) 7.5 %; Monocytes # (A) 2.01 X 10*3/uL (0.20-1.00); Monocytes % (A) 7.5 %; Neutrophils # (A) 22.38 X 10*3/uL (1.80-7.70); Neutrophils % (A) 83.2 %
--- NOTE | 2021-01-28 13:01 | P.PN ---
Subjective Progress Note Date: 01/28/21 Principal diagnosis: Acute hypoxic respiratory failure secondary to right lower lobe pneumonia and small cell lung cancer. This is an 80-year-old female that was evaluated in the emergency department on January 26. She was apparently brought in by her family. She apparently has a history of lung cancer, and is an ongoing tobacco user. She is apparently undergoing chemotherapy. The patient came in for increasing shortness of breath, fever, and cough. She recently had lab work that showed a low platelet count. Cough is apparently productive of green mucus. Apparently on the day of her evaluation in the emergency department, she was to receive chemotherapy. Because of fever, she came to the emergency room instead. Currently, the patient is poorly responsive and not a particularly good historian. She does arouse. She is currently not receiving any IV fluids. She's getting nasal cannula at 5 L. Rhythm on the monitor is atrial fibrillation. In addition, she has a history of gastroesophageal reflux disease, hypertension, osteoarthritis, migraine cephalgia, skin cancer, and chronic sinus disease. Chest x-ray shows a consolidation in the right lower lobe. It is almost masslike. White count is 24.9, hemoglobin 8.7, hematocrit 25.9, platelet count 690,000. PT 12.1, INR 1.2. Sodium 127, up from 122, potassium 3.2, chloride 89, CO2 32, anion gap 6, BUN 11, creatinine 0.32. Urine is yellow and cloudy, leukocyte esterase is largely positive. There are rare bacteria, and 27 WBCs in the urine. In addition, coronavirus testing was negative. Patient was reevaluated today on 01/28/2021, feeling better, breathing easier, hardly any cough, no wheezing, no fever, no chills, no hemoptysis continues to have leukocytosis but improving WBC count is 26.9 hemoglobin is 8.9, electrolytes are abnormal with low sodium but improving potassium is 3.4. Normal renal profile is noted. Blood cultures are negative, urine culture is showing strep agalactiae group B, however the count is not significant Objective - Vital Signs Vital signs: Vital Signs Temp 98.5 F 01/28/21 02:00 Pulse 107 H 01/28/21 02:00 Resp 20 01/28/21 02:00 BP 146/75 01/28/21 02:00 Pulse Ox 93 L 01/28/21 02:00 Intake & Output 01/27/21 01/28/21 01/28/21 18:59 06:59 18:59 Intake Total 100 Balance 100 Weight 58.06 kg Intake: Oral 100 Other: # Voids 2 1 - Exam Physical Exam: Revealed an 80-year-old female in no distress. Head: Atraumatic, normocephalic. HEENT:[Neck is supple.] [No neck masses.] [No thyromegaly.] [No JVD.] Chest: [Clear throughout, no crackles, no rhonchi, no wheezes.] Cardiac Exam: [Normal S1 and S2, no S3 gallop, no murmur.] Abdomen: [Soft, nontender, no megaly, no rebound, no guarding, normal bowel sounds.] Extremities: [No clubbing, no edema, no cyanosis.] Neurological Exam: [No focal neurologic deficit.] Psychiatric: Normal mood affect and normal mental status examination. Skin: No rashes - Labs CBC & Chem 7: 01/28/21 05:31 01/28/21 05:31 Labs: Abnormal Lab Results - Last 24 Hours (Table) 01/28/21 01/28/21 Range/Units 05:31 05:31 WBC 26.92 H (4.50-10.00) X 10*3/uL RBC 3.29 L (4.10-5.20) X 10*6/uL Hgb 8.9 L (12.0-15.0) g/dL Hct 28.8 L (37.2-46.3) % MCHC 30.9 L (32.0-37.0) g/dL RDW 15.8 H (11.5-14.5) % Plt Count 719 H (140-440) X 10*3/uL Plt Count Comment INCREASED A MPV 9.4 L (9.5-12.2) fL Immature Gran # 0.40 H (0.00-0.04) X 10*3/uL Neutrophils # 22.38 H (1.80-7.70) X 10*3/uL Monocytes # 2.01 H (0.20-1.00) X 10*3/uL Sodium 131 L (135-145) mmol/L Potassium 3.4 L (3.5-5.5) mmol/L Chloride 91 L (96-109) mmol/L Carbon Dioxide 32.4 H (21.6-31.8) mmol/L BUN 8.0 L (9.0-27.0) mg/dL Creatinine 0.3 L (0.6-1.5) mg/dL BUN/Creatinine Ratio 26.67 H (12.00-20.00) Ratio Glucose 113 H (70-110) mg/dL Calcium 8.5 L (8.7-10.3) mg/dL Microbiology - Last 24 Hours (Table) 01/26/21 18:09 Urine Culture - Final Urine,Voided Strep agalactiae - (group b) 01/26/21 17:15 Blood Culture - Preliminary Blood No Growth after 24 hours 01/26/21 17:33 Blood Culture - Preliminary Blood No Growth after 24 hours Assessment and Plan Assessment: Impression: Acute hypoxic respiratory failure secondary to acute right lower lobe pneumonia History of small cell lung cancer, presently undergoing chemotherapy. Hyponatremia most likely secondary to SIADH although hypovolemic hyponatremia is not entirely ruled out. Suspect some component of underlying COPD. Tobacco dependence syndrome. History of GERD. History of migraine cephalgia. Recommendation: Continue present treatment plan including oxygen, Continue antibiotics patient is on Maxipime and Zithromax. Continue hydration. Continue bronchodilators. Continue to monitor Specifically the sodium. Consider discharge planning in the next few days. We will continue to follow. Time with Patient: Less than 30
[2021-01-28 14:02] VITALS: BMI 25.0
--- NOTE | 2021-01-28 16:58 | P.PN ---
Subjective Progress Note Date: 01/28/21 This is an 80-year-old female with history of small cell lung cancer, currently undergoing chemotherapy, gastroesophageal reflux disease, hypertension, osteoarthritis, pain stimulator in back, former extensive nicotine dependence- quit in 2017 and multiple other medical issues, presented to the ER with comp laints of worsening shortness of breath, cough and fever. Reports she was scheduled for her second chemotherapy, she was weak with fever and was referred to the ER. Payton/Green sputum reported. On admission T-max 100.1, mild tachycardia, hypoxic-90% on room air, requiring 2 L nasal cannula to maintain O2 sats in the mid to high 90s. WBC 33.1, hemoglobin 10.1, platelets 774, neutrophils 30.7, lymphocytes 0.99, sodium 122 up to 127, potassium 2.9-now 3.2, carb 36, BUN 20, creatinine 0.38, lactic acid 1, magnesium 1.7, UA reporting rare bacteria, large leukocytes, urine WBCs 27, negative for nitrates, urine culture in progress. Lai virus not detected. Chest x-ray reported extensive consolidation of the right lung base new compared to recent exam, atelectasis left lung base unchanged with no heart failure. EKG reported sinus tachycardia with PACs. 01/28/2021 maintained on cefepime and Zithromax, less cough, afebrile, WBC 26.92. Regarding 5 L nasal cannula O2 to maintain O2 sats in the 90s. Urine culture reported strep agalactiae , group B, only 10-49,000 colonies. Maintain ed on IV fluid hydration with sodium improving, currently 131. Potassium 3.4, replacement supplements ordered. Objective - Vital Signs Vital signs: Vital Signs Temp 98.5 F 01/28/21 02:00 Pulse 107 H 01/28/21 02:00 Resp 20 01/28/21 02:00 BP 146/75 01/28/21 02:00 Pulse Ox 93 L 01/28/21 02:00 Intake & Output 01/27/21 01/28/21 01/28/21 18:59 06:59 18:59 Intake Total 100 Balance 100 Weight 58.06 kg Intake: Oral 100 Other: # Voids 2 1 - Exam PHYSICAL EXAM: VITAL SIGNS: As above GENERAL: Sitting up in chair,no acute distress HEENT: Conjunctivae normal. eyes normal. Oral mucosa moist NECK: No JVD. No thyroid enlargement. No LNs CARDIOVASCULAR: S1, S2, irregular. Minimal Tachycardia ,No murmur RESPIRATION: Breath sounds diminished in the bases. Scattered rhonchi , right basilar crackles. ABDOMEN: Soft, nontender . No guarding. no masses palpable. No ascites, No hepatosplenomegaly.Bowel sounds heard. LEGS: No edema. no swelling PSYCHIATRY: Alert and oriented X3, mood and affect normal. NERVOUS SYSTEM: Cranial N 2-12 grossly normal. Moves all 4 limbs. Diffuse weakness, No focal deficits. Strength and sensation grossly intact.. Skin: Warm and dry, no rash - Labs CBC & Chem 7: 01/28/21 05:31 01/28/21 05:31 Labs: Abnormal Lab Results - Last 24 Hours (Table) 01/28/21 01/28/21 Range/Units 05:31 05:31 WBC 26.92 H (4.50-10.00) X 10*3/uL RBC 3.29 L (4.10-5.20) X 10*6/uL Hgb 8.9 L (12.0-15.0) g/dL Hct 28.8 L (37.2-46.3) % MCHC 30.9 L (32.0-37.0) g/dL RDW 15.8 H (11.5-14.5) % Plt Count 719 H (140-440) X 10*3/uL MPV 9.4 L (9.5-12.2) fL Sodium 131 L (135-145) mmol/L Potassium 3.4 L (3.5-5.5) mmol/L Chloride 91 L (96-109) mmol/L Carbon Dioxide 32.4 H (21.6-31.8) mmol/L BUN 8.0 L (9.0-27.0) mg/dL Creatinine 0.3 L (0.6-1.5) mg/dL BUN/Creatinine Ratio 26.67 H (12.00-20.00) Ratio Glucose 113 H (70-110) mg/dL Calcium 8.5 L (8.7-10.3) mg/dL Microbiology - Last 24 Hours (Table) 01/26/21 18:09 Urine Culture - Final Urine,Voided Strep agalactiae - (group b) 01/26/21 17:15 Blood Culture - Preliminary Blood No Growth after 24 hours 01/26/21 17:33 Blood Culture - Preliminary Blood No Growth after 24 hours Assessment and Plan Assessment: Sepsis secondary to acute right lower lobe pneumonia Acute hypoxic respiratory failure secondary to the above Dehydration Hyponatremia, hypovolemic secondary to the above, 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 Continue on nebulized bronchodilators, antibiotics of azithromycin, cefepime, gentle IV fluid hydration. Potassium replacement as per protocol previously ordered. Pulmonary consult in place, recommendations pending. The impression and plan of care has been dictated as directed. : I performed a history and examination of this patient, discussed the same with the dictator. I agree with the dictator's note ,documented as a scribe. Any additional findings or plans will be noted.
[2021-01-28] MEDS: AMITRIPTYLINE HCL 50 MG TAB PO SCH (20:32)
[2021-01-28] MEDS: AZITHROMYCIN 500 MG TAB PO SCH (20:32)
--- NOTE | 2021-01-28 20:54 | P.PN ---
Subjective Progress Note Date: 01/28/21 Principal diagnosis: AREN Still requiring 5Liters and feeling "bad" Objective - Vital Signs Vital signs: Vital Signs Temp 97.6 F 01/28/21 14:00 Pulse 94 01/28/21 14:00 Resp 18 01/28/21 14:00 BP 130/60 01/28/21 14:00 Pulse Ox 98 01/28/21 14:00 Intake & Output 01/28/21 01/28/21 01/29/21 06:59 18:59 06:59 Intake Total 280 100 Balance 280 100 Weight 58.06 kg Intake: Intake, IV Titration 100 Amount Cefepime 2 gm In Sodium 100 Chloride 0.9% 100 ml @ 25 mls/hr IVPB Q8HR [facility] Rx# :[id number] Oral 280 Other: # Voids 2 1 - Exam - Constitutional General appearance: mild distress, thin - EENT Eyes: EOMI ENT: hard of hearing, NA/AT - Neck Neck: normal ROM - Respiratory Respiratory: bilateral: diminished, rhonchi (mild increase in effort ) - Cardiovascular Rhythm: regularly irregular - Gastrointestinal General gastrointestinal: soft, tenderness - Integumentary Integumentary: pale - Musculoskeletal Musculoskeletal: generalized weakness - Psychiatric Psychiatric: A&O x's 3 - Labs CBC & Chem 7: 01/28/21 05:31 01/28/21 05:31 Labs: Abnormal Lab Results - Last 24 Hours (Table) 01/28/21 01/28/21 Range/Units 05:31 05:31 WBC 26.92 H (4.50-10.00) X 10*3/uL RBC 3.29 L (4.10-5.20) X 10*6/uL Hgb 8.9 L (12.0-15.0) g/dL Hct 28.8 L (37.2-46.3) % MCHC 30.9 L (32.0-37.0) g/dL RDW 15.8 H (11.5-14.5) % Plt Count 719 H (140-440) X 10*3/uL Plt Count Comment INCREASED A MPV 9.4 L (9.5-12.2) fL Immature Gran # 0.40 H (0.00-0.04) X 10*3/uL Neutrophils # 22.38 H (1.80-7.70) X 10*3/uL Monocytes # 2.01 H (0.20-1.00) X 10*3/uL Sodium 131 L (135-145) mmol/L Potassium 3.4 L (3.5-5.5) mmol/L Chloride 91 L (96-109) mmol/L Carbon Dioxide 32.4 H (21.6-31.8) mmol/L BUN 8.0 L (9.0-27.0) mg/dL Creatinine 0.3 L (0.6-1.5) mg/dL BUN/Creatinine Ratio 26.67 H (12.00-20.00) Ratio Glucose 113 H (70-110) mg/dL Calcium 8.5 L (8.7-10.3) mg/dL Microbiology - Last 24 Hours (Table) 01/26/21 17:15 Blood Culture - Preliminary Blood No Growth after 48 hours 01/26/21 17:33 Blood Culture - Preliminary Blood No Growth after 48 hours 01/26/21 18:09 Urine Culture - Final Urine,Voided Strep agalactiae - (group b)
[2021-01-29] MEDS: CEFEPIME 2 GM in SODIUM CHLORIDE 0.9% 100 ML IVPB SCH ×4 (00:04→23:29)
[2021-01-29] MEDS: oxyCODONE-APAP 7.5-325MG 1 EACH TAB PO PRN ×3 (02:51→20:36)
[2021-01-29] MEDS: ESCITALOPRAM 5 MG TAB PO SCH (08:48)
[2021-01-29] MEDS: METOPROLOL SUCCINATE (ER) 25 MG TAB.ER.24H PO SCH (08:48)
[2021-01-29] MEDS: PANTOPRAZOLE 40 MG/10 ML VIAL IVP SCH (08:49)
[2021-01-29 11:09] LABS: Basophils # (A) 0.06 X 10*3/uL (0.00-0.10); Basophils % (A) 0.3 %; Eosinophils # (A) 0.04 X 10*3/uL (0.04-0.35); Eosinophils % (A) 0.2 %; HCT 27.2 % (37.2-46.3); HGB 8.3 g/dL (12.0-15.0); Lymphocytes # (A) 1.58 X 10*3/uL (0.90-5.00); Lymphocytes % (A) 7.4 %; MCH 26.7 pg (27.0-32.0); MCHC 30.5 g/dL (32.0-37.0); MCV 87.5 fL (80.0-97.0); Mean Platelet Volume 9.4 fL (9.5-12.2); Monocytes # (A) 2.04 X 10*3/uL (0.20-1.00); Monocytes % (A) 9.5 %; Neutrophils # (A) 17.33 X 10*3/uL (1.80-7.70); Neutrophils % (A) 80.9 %; Platelet Count 602 X 10*3/uL (140-440); RBC 3.11 X 10*6/uL (4.10-5.20); RDW 15.7 % (11.5-14.5); WBC 21.42 X 10*3/uL (4.50-10.00)
[2021-01-29 11:57] LABS: African American GFR (CKD) 124.5 (60.0-200.0); Anion Gap 10.2 mmol/L (4.00-12.00); BUN/Creat Ratio 23.33 Ratio (12.00-20.00); Calcium 8.5 mg/dL (8.7-10.3); Carbon Dioxide 29.8 mmol/L (21.6-31.8); Non-African American GFR(CKD) 107.4 (60.0-200.0); Potassium 3.9 mmol/L (3.5-5.5)
--- NOTE | 2021-01-29 12:49 | P.PN ---
Subjective Progress Note Date: 01/29/21 Principal diagnosis: Acute hypoxic respiratory failure secondary to right lower lobe pneumonia and small cell lung cancer. This is an 80-year-old female that was evaluated in the emergency department on January 26. She was apparently brought in by her family. She apparently has a history of lung cancer, and is an ongoing tobacco user. She is apparently undergoing chemotherapy. The patient came in for increasing shortness of breath, fever, and cough. She recently had lab work that showed a low platelet count. Cough is apparently productive of green mucus. Apparently on the day of her evaluation in the emergency department, she was to receive chemotherapy. Because of fever, she came to the emergency room instead. Currently, the patient is poorly responsive and not a particularly good historian. She does arouse. She is currently not receiving any IV fluids. She's getting nasal cannula at 5 L. Rhythm on the monitor is atrial fibrillation. In addition, she has a history of gastroesophageal reflux disease, hypertension, osteoarthritis, migraine cephalgia, skin cancer, and chronic sinus disease. Chest x-ray shows a consolidation in the right lower lobe. It is almost masslike. White count is 24.9, hemoglobin 8.7, hematocrit 25.9, platelet count 690,000. PT 12.1, INR 1.2. Sodium 127, up from 122, potassium 3.2, chloride 89, CO2 32, anion gap 6, BUN 11, creatinine 0.32. Urine is yellow and cloudy, leukocyte esterase is largely positive. There are rare bacteria, and 27 WBCs in the urine. In addition, coronavirus testing was negative. Patient was reevaluated today on 01/28/2021, feeling better, breathing easier, hardly any cough, no wheezing, no fever, no chills, no hemoptysis continues to have leukocytosis but improving WBC count is 26.9 hemoglobin is 8.9, electrolytes are abnormal with low sodium but improving potassium is 3.4. Normal renal profile is noted. Blood cultures are negative, urine culture is showing strep agalactiae group B, however the count is not significant Patient was reevaluated today on 01/29/2021, sitting at a bedside chair, seems to be comfortable, she is on 5 L nasal cannula, O2 saturation is running between 91 up to 96%. Continues to have leukocytosis but seems to be improving with WBC count of 21.4. Electrolytes are normal renal profile is normal. PCR for coronavirus was not detected. Last chest x-ray showed dense consolidation in the right lung base. Objective - Vital Signs Vital signs: Vital Signs Temp 97.5 F L 01/29/21 08:45 Pulse 60 01/29/21 08:45 Resp 16 01/29/21 08:45 BP 147/82 01/29/21 08:45 Pulse Ox 91 L 01/29/21 08:45 Intake & Output 01/28/21 01/29/21 01/29/21 18:59 06:59 18:59 Intake Total 280 440 200 Output Total 300 250 Balance 280 140 -50 Weight 58.06 kg Intake: Intake, IV Titration 200 Amount Cefepime 2 gm In Sodium 200 Chloride 0.9% 100 ml @ 25 mls/hr IVPB Q8HR [facility] Rx# :[id number] Oral 280 240 200 Output: Urine 300 250 Other: # Voids 1 1 - Exam Physical Exam: Revealed an 80-year-old female in no distress. On 5 L nasal cannula. Head: Atraumatic, normocephalic. HEENT:[Neck is supple.] [No neck masses.] [No thyromegaly.] [No JVD.] Chest: [Crackles mostly at the right base Cardiac Exam: [Normal S1 and S2, no S3 gallop, no murmur.] Abdomen: [Soft, nontender, no megaly, no rebound, no guarding, normal bowel sounds.] Extremities: [No clubbing, no edema, no cyanosis.] Neurological Exam: [No focal neurologic deficit.] Psychiatric: Normal mood affect and normal mental status examination. Skin: No rashes - Labs CBC & Chem 7: 01/29/21 06:32 01/29/21 06:32 Labs: Abnormal Lab Results - Last 24 Hours (Table) 01/29/21 01/29/21 Range/Units 06:32 06:32 WBC 21.42 H (4.50-10.00) X 10*3/uL RBC 3.11 L (4.10-5.20) X 10*6/uL Hgb 8.3 L (12.0-15.0) g/dL Hct 27.2 L (37.2-46.3) % MCH 26.7 L (27.0-32.0) pg MCHC 30.5 L (32.0-37.0) g/dL RDW 15.7 H (11.5-14.5) % Plt Count 602 H (140-440) X 10*3/uL MPV 9.4 L (9.5-12.2) fL Immature Gran # 0.37 H (0.00-0.04) X 10*3/uL Neutrophils # 17.33 H (1.80-7.70) X 10*3/uL Monocytes # 2.04 H (0.20-1.00) X 10*3/uL Sodium 132 L (135-145) mmol/L Chloride 92 L (96-109) mmol/L BUN 7.0 L (9.0-27.0) mg/dL Creatinine 0.3 L (0.6-1.5) mg/dL BUN/Creatinine Ratio 23.33 H (12.00-20.00) Ratio Glucose 112 H (70-110) mg/dL Calcium 8.5 L (8.7-10.3) mg/dL Microbiology - Last 24 Hours (Table) 01/28/21 20:42 Gram Stain - Preliminary Sputum Sputum Culture - Preliminary 01/26/21 17:15 Blood Culture - Preliminary Blood No Growth after 48 hours 01/26/21 17:33 Blood Culture - Preliminary Blood No Growth after 48 hours Assessment and Plan Assessment: Impression: Acute hypoxic respiratory failure secondary to acute right lower lobe pneumonia History of small cell lung cancer, presently undergoing chemotherapy. Hyponatremia most likely secondary to SIADH although hypovolemic hyponatremia is not entirely ruled out. Sodium today is 132. Presenting sodium was 122 Suspect some component of underlying COPD. Tobacco dependence syndrome. History of GERD. History of migraine cephalgia. Recommendation: Titrate oxygen accordingly. Continue antibiotics patient is on Maxipime and Zithromax. Continue hydration. Continue bronchodilators. Continue to monitor sodium. Not quite ready for discharge planning. Consider discharge planning in the next few days. We will continue to follow. Time with Patient: Less than 30
--- NOTE | 2021-01-29 15:13 | P.PN ---
Subjective Progress Note Date: 01/29/21 This is an 80-year-old female with history of small cell lung cancer, currently undergoing chemotherapy, gastroesophageal reflux disease, hypertension, osteoarthritis, pain stimulator in back, former extensive nicotine dependence- quit in 2017 and multiple other medical issues, presented to the ER with comp laints of worsening shortness of breath, cough and fever. Reports she was scheduled for her second chemotherapy, she was weak with fever and was referred to the ER. Payton/Green sputum reported. On admission T-max 100.1, mild tachycardia, hypoxic-90% on room air, requiring 2 L nasal cannula to maintain O2 sats in the mid to high 90s. WBC 33.1, hemoglobin 10.1, platelets 774, neutrophils 30.7, lymphocytes 0.99, sodium 122 up to 127, potassium 2.9-now 3.2, carb 36, BUN 20, creatinine 0.38, lactic acid 1, magnesium 1.7, UA reporting rare bacteria, large leukocytes, urine WBCs 27, negative for nitrates, urine culture in progress. Lai virus not detected. Chest x-ray reported extensive consolidation of the right lung base new compared to recent exam, atelectasis left lung base unchanged with no heart failure. EKG reported sinus tachycardia with PACs. 01/28/2021 maintained on cefepime and Zithromax, less cough, afebrile, WBC 26.92. Regarding 5 L nasal cannula O2 to maintain O2 sats in the 90s. Urine culture reported strep agalactiae , group B, only 10-49,000 colonies. Maintain ed on IV fluid hydration with sodium improving, currently 131. Potassium 3.4, replacement supplements ordered. 01/29/2021 continues to require 5 L nasal cannula O2 to maintain O2 sats in the 90s in a patient who does not wear any O2 at home. Congested with gurgling cough, productive with brownish greenish. Sputum culture pending. Afebrile WBC trending down 21.42. Sodium continues improving, 132. Potassium supplemented yesterday, up to 3.9. Objective - Vital Signs Vital signs: Vital Signs Temp 97.5 F L 01/29/21 08:45 Pulse 60 01/29/21 08:45 Resp 16 01/29/21 08:45 BP 147/82 01/29/21 08:45 Pulse Ox 91 L 01/29/21 08:45 Intake & Output 01/28/21 01/29/21 01/29/21 18:59 06:59 18:59 Intake Total 280 440 200 Output Total 300 250 Balance 280 140 -50 Weight 58.06 kg Intake: Intake, IV Titration 200 Amount Cefepime 2 gm In Sodium 200 Chloride 0.9% 100 ml @ 25 mls/hr IVPB Q8HR [facility] Rx# :[id number] Oral 280 240 200 Output: Urine 300 250 Other: # Voids 1 1 - Exam PHYSICAL EXAM: VITAL SIGNS: As above GENERAL: Sitting up in bed,no acute distress. HEENT: Conjunctivae normal. eyes normal. Oral mucosa moist NECK: No JVD. No thyroid enlargement. No LNs CARDIOVASCULAR: S1, S2, irregular. Minimal Tachycardia ,No murmur RESPIRATION: Breath sounds diminished in the bases. Scattered rhonchi , right basilar crackles. ABDOMEN: Soft, nontender . No guarding. no masses palpable. Bowel sounds heard. LEGS: No edema. no swelling PSYCHIATRY: Alert and oriented X3, mood and affect normal. NERVOUS SYSTEM: Cranial N 2-12 grossly normal. Moves all 4 limbs. Diffuse weakness, No focal deficits. Strength and sensation grossly intact. Skin: Warm and dry, no rash - Labs CBC & Chem 7: 01/29/21 06:32 01/29/21 06:32 Labs: Abnormal Lab Results - Last 24 Hours (Table) 01/29/21 01/29/21 Range/Units 06:32 06:32 WBC 21.42 H (4.50-10.00) X 10*3/uL RBC 3.11 L (4.10-5.20) X 10*6/uL Hgb 8.3 L (12.0-15.0) g/dL Hct 27.2 L (37.2-46.3) % MCH 26.7 L (27.0-32.0) pg MCHC 30.5 L (32.0-37.0) g/dL RDW 15.7 H (11.5-14.5) % Plt Count 602 H (140-440) X 10*3/uL MPV 9.4 L (9.5-12.2) fL Immature Gran # 0.37 H (0.00-0.04) X 10*3/uL Neutrophils # 17.33 H (1.80-7.70) X 10*3/uL Monocytes # 2.04 H (0.20-1.00) X 10*3/uL Sodium 132 L (135-145) mmol/L Chloride 92 L (96-109) mmol/L BUN 7.0 L (9.0-27.0) mg/dL Creatinine 0.3 L (0.6-1.5) mg/dL BUN/Creatinine Ratio 23.33 H (12.00-20.00) Ratio Glucose 112 H (70-110) mg/dL Calcium 8.5 L (8.7-10.3) mg/dL Microbiology - Last 24 Hours (Table) 01/28/21 20:42 Gram Stain - Preliminary Sputum Sputum Culture - Preliminary 01/26/21 17:15 Blood Culture - Preliminary Blood No Growth after 48 hours 01/26/21 17:33 Blood Culture - Preliminary Blood No Growth after 48 hours Assessment and Plan Assessment: Sepsis secondary to acute right lower lobe pneumonia, possibly aspiration Acute hypoxic respiratory failure secondary to the above Dehydration Hyponatremia, hypovolemic secondary to the above, 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 Speech therapy consulted for swallow eval .strict aspiration p recautions. nebulized bronchodilators, antibiotics of azithromycin, cefepime. Evaluated by pulmonary with recommendations noted and appreciated. The impression and plan of care has been dictated as directed. : I performed a history and examination of this patient, discussed the same with the dictator. I agree with the dictator's note ,documented as a scribe. Any additional findings or plans will be noted.
--- NOTE | 2021-01-29 20:01 | P.PN ---
Subjective Progress Note Date: 02/05/21 Principal diagnosis: AREN Patient sitting in chair during evaluation, she appears more comfortable today. Objective - Vital Signs Vital signs: Vital Signs Temp 98.2 F 01/29/21 14:25 Pulse 100 01/29/21 14:25 Resp 16 01/29/21 14:25 BP 152/73 01/29/21 14:25 Pulse Ox 97 01/29/21 14:25 Intake & Output 01/29/21 01/29/21 01/30/21 06:59 18:59 06:59 Intake Total 440 200 Output Total 300 250 Balance 140 -50 Intake: Intake, IV Titration 200 Amount Cefepime 2 gm In Sodium 200 Chloride 0.9% 100 ml @ 25 mls/hr IVPB Q8HR [facility] Rx# :[id number] Oral 240 200 Output: Urine 300 250 Other: # Voids 1 1 - Exam - Constitutional General appearance: mild distress, thin - EENT Eyes: EOMI ENT: hard of hearing, NA/AT - Neck Neck: normal ROM - Respiratory Respiratory: bilateral: diminished, rhonchi (mild increase in effort ) - Cardiovascular Rhythm: regularly irregular - Gastrointestinal General gastrointestinal: soft, tenderness - Integumentary Integumentary: pale - Musculoskeletal Musculoskeletal: generalized weakness - Psychiatric Psychiatric: A&O x's 3 - Labs CBC & Chem 7: 01/29/21 06:32 01/29/21 06:32 Labs: Abnormal Lab Results - Last 24 Hours (Table) 01/29/21 01/29/21 Range/Units 06:32 06:32 WBC 21.42 H (4.50-10.00) X 10*3/uL RBC 3.11 L (4.10-5.20) X 10*6/uL Hgb 8.3 L (12.0-15.0) g/dL Hct 27.2 L (37.2-46.3) % MCH 26.7 L (27.0-32.0) pg MCHC 30.5 L (32.0-37.0) g/dL RDW 15.7 H (11.5-14.5) % Plt Count 602 H (140-440) X 10*3/uL MPV 9.4 L (9.5-12.2) fL Immature Gran # 0.37 H (0.00-0.04) X 10*3/uL Neutrophils # 17.33 H (1.80-7.70) X 10*3/uL Monocytes # 2.04 H (0.20-1.00) X 10*3/uL Sodium 132 L (135-145) mmol/L Chloride 92 L (96-109) mmol/L BUN 7.0 L (9.0-27.0) mg/dL Creatinine 0.3 L (0.6-1.5) mg/dL BUN/Creatinine Ratio 23.33 H (12.00-20.00) Ratio Glucose 112 H (70-110) mg/dL Calcium 8.5 L (8.7-10.3) mg/dL Microbiology - Last 24 Hours (Table) 01/26/21 17:15 Blood Culture - Preliminary Blood No Growth after 72 hours 01/26/21 17:33 Blood Culture - Preliminary Blood No Growth after 72 hours 01/28/21 20:42 Gram Stain - Preliminary Sputum Sputum Culture - Preliminary Assessment and Plan Plan: Assessment and PLan: Extensive stage small cell: - Status post cycle one of chemo, plan for cycle two today however had fever on presentation and was sent to er for further evaluation - Hold for now - Will see Dr. Lynn after discharged Fever: - Cano Cultures - Improved - Likely pneumonia Pneumonia and Acute respiratory insuff: - Supportive care - Pulmonary Following - COVID PCR neg
[2021-01-29] MEDS: AMITRIPTYLINE HCL 50 MG TAB PO SCH (20:36)
[2021-01-29] MEDS: AZITHROMYCIN 500 MG TAB PO SCH (20:36)
[2021-01-30] MEDS: CEFEPIME 2 GM in SODIUM CHLORIDE 0.9% 100 ML IVPB SCH ×2 (07:42→17:25)
[2021-01-30] MEDS: ESCITALOPRAM 5 MG TAB PO SCH (08:58)
[2021-01-30] MEDS: METOPROLOL SUCCINATE (ER) 25 MG TAB.ER.24H PO SCH (08:58)
[2021-01-30] MEDS: oxyCODONE-APAP 7.5-325MG 1 EACH TAB PO PRN ×2 (08:58→20:18)
[2021-01-30] MEDS: PANTOPRAZOLE 40 MG/10 ML VIAL IVP SCH (08:59)
--- NOTE | 2021-01-30 09:18 | XR ---
EXAMINATION TYPE: XR chest 1V portable DATE OF EXAM: 01/30/2021 Comparison: 01/27/2021 Clinical History: 80-year-old female RLL pneumonia Findings: Spinal stimulator remains situated along the mid to lower thoracic spinal canal. Tortuous/ectatic tho racic aorta with atherosclerotic arch calcifications. Some patchy retrocardiac opacity is unchanged a t the left base. Extensive opacity throughout the right mid and lower lung persists. Suture anchor ri ght humeral head from prior cuff repair. However, there is loss of the subacromial space on both side s suggesting re-tear on the right and a chronic full-thickness rotator cuff on the left. Impression: 1. Continued extensive consolidation throughout the right mid and lower lung. The patient's known rig ht midlung neoplasm is noted to be much smaller on 12/05/2020 and is obscured by the pneumonia. 2. Similar patchy retrocardiac atelectasis versus mild infiltrate.
[2021-01-30 09:23] LABS: Basophils # (A) 0.06 X 10*3/uL (0.00-0.10); Basophils % (A) 0.3 %; Eosinophils # (A) 0.02 X 10*3/uL (0.04-0.35); Eosinophils % (A) 0.1 %; HCT 28.3 % (37.2-46.3); HGB 8.9 g/dL (12.0-15.0); Lymphocytes # (A) 1.74 X 10*3/uL (0.90-5.00); Lymphocytes % (A) 9.6 %; MCHC 31.4 g/dL (32.0-37.0); MCV 85.8 fL (80.0-97.0); Mean Platelet Volume 9.5 fL (9.5-12.2); Monocytes # (A) 1.87 X 10*3/uL (0.20-1.00); Monocytes % (A) 10.3 %; Neutrophils # (A) 14.04 X 10*3/uL (1.80-7.70); Neutrophils % (A) 77.5 %; Platelet Count 715 X 10*3/uL (140-440); RDW 15.6 % (11.5-14.5); WBC 18.13 X 10*3/uL (4.50-10.00)
[2021-01-30 10:00] LABS: African American GFR (CKD) 124.5 (60.0-200.0); Anion Gap 9.2 mmol/L (4.00-12.00); Calcium 8.4 mg/dL (8.7-10.3); Carbon Dioxide 29.8 mmol/L (21.6-31.8); Non-African American GFR(CKD) 107.4 (60.0-200.0); Potassium 3.8 mmol/L (3.5-5.5)
--- NOTE | 2021-01-30 10:18 | P.PN ---
Subjective Progress Note Date: 01/30/21 This is an 80-year-old female with history of small cell lung cancer, currently undergoing chemotherapy, gastroesophageal reflux disease, hypertension, osteoarthritis, pain stimulator in back, former extensive nicotine dependence- quit in 2017 and multiple other medical issues, presented to the ER with comp laints of worsening shortness of breath, cough and fever. Reports she was scheduled for her second chemotherapy, she was weak with fever and was referred to the ER. Payton/Green sputum reported. On admission T-max 100.1, mild tachycardia, hypoxic-90% on room air, requiring 2 L nasal cannula to maintain O2 sats in the mid to high 90s. WBC 33.1, hemoglobin 10.1, platelets 774, neutrophils 30.7, lymphocytes 0.99, sodium 122 up to 127, potassium 2.9-now 3.2, carb 36, BUN 20, creatinine 0.38, lactic acid 1, magnesium 1.7, UA reporting rare bacteria, large leukocytes, urine WBCs 27, negative for nitrates, urine culture in progress. Lai virus not detected. Chest x-ray reported extensive consolidation of the right lung base new compared to recent exam, atelectasis left lung base unchanged with no heart failure. EKG reported sinus tachycardia with PACs. 01/28/2021 maintained on cefepime and Zithromax, less cough, afebrile, WBC 26.92. Regarding 5 L nasal cannula O2 to maintain O2 sats in the 90s. Urine culture reported strep agalactiae , group B, only 10-49,000 colonies. Maintain ed on IV fluid hydration with sodium improving, currently 131. Potassium 3.4, replacement supplements ordered. 01/29/2021 continues to require 5 L nasal cannula O2 to maintain O2 sats in the 90s in a patient who does not wear any O2 at home. Congested with gurgling cough, productive with brownish greenish. Sputum culture pending. Afebrile WBC trending down 21.42. Sodium continues improving, 132. Potassium supplemented yesterday, up to 3.9. 01/30/21 patient reports she did not get out of bed at all yesterday. Maintaining O2 sats in the 90s on 3 L nasal cannula. Mild tachycardia. Less congestion today. Afebrile, WBC 18. Evaluated by speech therapy yesterday with findings consistent with 2018 modified barium swallow, moderate to severe pharyngeal dysphagia, modified diet discussed, patient declining. Denies chest pain, palpitations. Objective - Vital Signs Vital signs: Vital Signs Temp 98.6 F 01/30/21 01:56 Pulse 97 01/30/21 01:56 Resp 20 01/30/21 01:56 BP 110/64 01/30/21 01:56 Pulse Ox 95 01/30/21 01:56 Intake & Output 01/29/21 01/30/21 01/30/21 18:59 06:59 18:59 Intake Total 440 180 Output Total 250 Balance 190 180 Intake: Oral 440 180 Output: Urine 250 Other: Voiding Method Bedside Commode Bedside Commode # Voids 1 1 - Exam PHYSICAL EXAM: VITAL SIGNS: As above GENERAL: Alert and oriented 3, Sitting up in bed,no acute distress. HEENT: Conjunctivae normal. eyes normal. Oral mucosa moist CARDIOVASCULAR: S1, S2, irregular. Mild Tachycardia ,No murmur RESPIRATION: Breath sounds diminished in the bases. Scattered rhonchi , right basilar crackles. ABDOMEN: Soft, nontender . No guarding. no masses palpable. Bowel sounds heard. LEGS: No edema. no swelling NERVOUS SYSTEM: Cranial N 2-12 grossly normal. Moves all 4 limbs. Diffuse weakness, No focal deficits. Strength and sensation grossly intact. Skin: Warm and dry, no rash - Labs CBC & Chem 7: 01/30/21 05:16 01/30/21 05:16 Labs: Abnormal Lab Results - Last 24 Hours (Table) 01/29/21 01/29/21 01/30/21 Range/Units 06:32 06:32 05:16 WBC 21.42 H 18.13 H (4.50-10.00) X 10*3/uL RBC 3.11 L 3.30 L (4.10-5.20) X 10*6/uL Hgb 8.3 L 8.9 L (12.0-15.0) g/dL Hct 27.2 L 28.3 L (37.2-46.3) % MCH 26.7 L (27.0-32.0) pg MCHC 30.5 L 31.4 L (32.0-37.0) g/dL RDW 15.7 H 15.6 H (11.5-14.5) % Plt Count 602 H 715 H (140-440) X 10*3/uL MPV 9.4 L (9.5-12.2) fL Immature Gran # 0.37 H 0.40 H (0.00-0.04) X 10*3/uL Neutrophils # 17.33 H 14.04 H (1.80-7.70) X 10*3/uL Monocytes # 2.04 H 1.87 H (0.20-1.00) X 10*3/uL Eosinophils # 0.02 L (0.04-0.35) X 10*3/uL Sodium 132 L (135-145) mmol/L Chloride 92 L (96-109) mmol/L BUN 7.0 L (9.0-27.0) mg/dL Creatinine 0.3 L (0.6-1.5) mg/dL BUN/Creatinine Ratio 23.33 H (12.00-20.00) Ratio Glucose 112 H (70-110) mg/dL Calcium 8.5 L (8.7-10.3) mg/dL 01/30/21 Range/Units 05:16 WBC (4.50-10.00) X 10*3/uL RBC (4.10-5.20) X 10*6/uL Hgb (12.0-15.0) g/dL Hct (37.2-46.3) % MCH (27.0-32.0) pg MCHC (32.0-37.0) g/dL RDW (11.5-14.5) % Plt Count (140-440) X 10*3/uL MPV (9.5-12.2) fL Immature Gran # (0.00-0.04) X 10*3/uL Neutrophils # (1.80-7.70) X 10*3/uL Monocytes # (0.20-1.00) X 10*3/uL Eosinophils # (0.04-0.35) X 10*3/uL Sodium 129 L (135-145) mmol/L Chloride 90 L (96-109) mmol/L BUN 6.0 L (9.0-27.0) mg/dL Creatinine 0.3 L (0.6-1.5) mg/dL BUN/Creatinine Ratio (12.00-20.00) Ratio Glucose 119 H (70-110) mg/dL Calcium 8.4 L (8.7-10.3) mg/dL Microbiology - Last 24 Hours (Table) 01/26/21 17:15 Blood Culture - Preliminary Blood No Growth after 72 hours 01/26/21 17:33 Blood Culture - Preliminary Blood No Growth after 72 hours 01/28/21 20:42 Gram Stain - Preliminary Sputum Sputum Culture - Preliminary Assessment and Plan Assessment: Sepsis secondary to acute right lower lobe pneumonia, possibly aspiration in a patient with history of moderate to severe pharyngeal dysphagia Acute hypoxic respiratory failure secondary to the above Dehydration Hyponatremia, hypovolemic secondary to the above, 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 Maintain strict aspiration precautions,nebulized bronchodilators, a ntibiotics of azithromycin, cefepime. Patient to be up in chair for all meals, ambulate every shift with assistance. The impression and plan of care has been dictated as directed. : I performed a history and examination of this patient, discussed the same with the dictator. I agree with the dictator's note ,documented as a scribe. Any additional findings or plans will be noted.
[2021-01-30] MEDS ORDERED: RX INFO: IV CONTRAST WAS GIVEN 1 EACH MISC MISCELLANE PRN (11:00)
--- NOTE | 2021-01-30 12:14 | CT ---
EXAMINATION TYPE: CT chest w con DATE OF EXAM: 01/30/2021 COMPARISON: 11/28/2020 HISTORY: right lung mass, pneumonia CT DLP: 368 mGycm, Automated exposure control for dose reduction was used. CONTRAST: Performed injected with 100 mL of Isovue 300. TECHNIQUE: Axial images were obtained at 5 mm thick sections. Reconstructed images are reviewed on [employer]ote computer in the coronal plane. FINDINGS: Portion of the thyroid visualized is normal. There is a small to moderate right pleural effusion which appears to be loculated. Loculated hypodens ity in the anterior right midlung is present with central hypodensity measuring 5.3 cm. There may be an additional loculated area measuring 2.7 cm inferior and lateral. This may be a loculated pleural e ffusion as well. There is a new density within the left lung measuring 1.4 cm. Series 4 image 29. Prior right middle lobe lung mass is not identified. Compressive atelectasis is at the right lung bas e. No enlarged mediastinal or hilar adenopathy is evident. Small pretracheal lymph nodes are present. The ascending aorta diameter at the level of the main pulmonary artery is 3.3 cm. The main pulmonary artery diameter at the bifurcation is 3.0 cm. Coronary artery calcification is present. Limited CT sections are obtained through the upper abdomen. Abdomen is essentially unremarkable. IMPRESSIONS: 1. There is a 5.3 cm hypodense area within the right midlung may be a cavitary lesion from pneumonia or mass. Loculated empyema should be considered. Loculated pleural effusion at this lesion is conside red unlikely. 2. There is extensive loculated pleural effusions on the right. 3. Enlarged mediastinal adenopathy is not identified. 4. Prior right middle lobe mass not identified. There is a new mass in the left mid lung measuring 1. 4 cm.
--- NOTE | 2021-01-30 13:46 | P.PN ---
Subjective Progress Note Date: 01/30/21 Principal diagnosis: Acute hypoxic respiratory failure secondary to right lower lobe pneumonia and small cell lung cancer. This is an 80-year-old female that was evaluated in the emergency department on January 26. She was apparently brought in by her family. She apparently has a history of lung cancer, and is an ongoing tobacco user. She is apparently undergoing chemotherapy. The patient came in for increasing shortness of breath, fever, and cough. She recently had lab work that showed a low platelet count. Cough is apparently productive of green mucus. Apparently on the day of her evaluation in the emergency department, she was to receive chemotherapy. Because of fever, she came to the emergency room instead. Currently, the patient is poorly responsive and not a particularly good historian. She does arouse. She is currently not receiving any IV fluids. She's getting nasal cannula at 5 L. Rhythm on the monitor is atrial fibrillation. In addition, she has a history of gastroesophageal reflux disease, hypertension, osteoarthritis, migraine cephalgia, skin cancer, and chronic sinus disease. Chest x-ray shows a consolidation in the right lower lobe. It is almost masslike. White count is 24.9, hemoglobin 8.7, hematocrit 25.9, platelet count 690,000. PT 12.1, INR 1.2. Sodium 127, up from 122, potassium 3.2, chloride 89, CO2 32, anion gap 6, BUN 11, creatinine 0.32. Urine is yellow and cloudy, leukocyte esterase is largely positive. There are rare bacteria, and 27 WBCs in the urine. In addition, coronavirus testing was negative. Patient was reevaluated today on 01/28/2021, feeling better, breathing easier, hardly any cough, no wheezing, no fever, no chills, no hemoptysis continues to have leukocytosis but improving WBC count is 26.9 hemoglobin is 8.9, electrolytes are abnormal with low sodium but improving potassium is 3.4. Normal renal profile is noted. Blood cultures are negative, urine culture is showing strep agalactiae group B, however the count is not significant Patient was reevaluated today on 01/29/2021, sitting at a bedside chair, seems to be comfortable, she is on 5 L nasal cannula, O2 saturation is running between 91 up to 96%. Continues to have leukocytosis but seems to be improving with WBC count of 21.4. Electrolytes are normal renal profile is normal. PCR for coronavirus was not detected. Last chest x-ray showed dense consolidation in the right lung base. Reevaluated today on 01/30/2021, patient seems to be comfortable, sitting at a bedside chair, remains on 5 L nasal cannula, patient is about the same. However her chest x-ray shows significant worsening of the right lower lobe consolidation and possibly a combination of postobstructive pneumonitis and right lung mass. CT of the chest showed a 5.3 cm hypodense area within the right midlung, could be related to her underlying malignancy with pneumonia. There is also evidence of loculated pleural effusion, will assess with a ultrasound, and decide whether it is possible to drain. 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 I reviewed the CT of the chest myself, there is indeed extensive likely pleural effusion on the right. Empyema is not entirely ruled out, but felt to be less likely. Objective - Vital Signs Vital signs: Vital Signs Temp 98.6 F 01/30/21 01:56 Pulse 97 01/30/21 01:56 Resp 20 01/30/21 01:56 BP 110/64 01/30/21 01:56 Pulse Ox 95 01/30/21 01:56 Intake & Output 01/29/21 01/30/21 01/30/21 18:59 06:59 18:59 Intake Total 440 180 Output Total 250 Balance 190 180 Intake: Oral 440 180 Output: Urine 250 Other: Voiding Method Bedside Commode Bedside Commode # Voids 1 1 - Exam Physical Exam: Revealed an 80-year-old female in no distress. On 5 L nasal cannula. Head: Atraumatic, normocephalic. HEENT:[Neck is supple.] [No neck masses.] [No thyromegaly.] [No JVD.] Chest: [Crackles mostly at the right base Cardiac Exam: [Normal S1 and S2, no S3 gallop, no murmur.] Abdomen: [Soft, nontender, no megaly, no rebound, no guarding, normal bowel sounds.] Extremities: [No clubbing, no edema, no cyanosis.] Neurological Exam: [No focal neurologic deficit.] Psychiatric: Normal mood affect and normal mental status examination. Skin: No rashes - Labs CBC & Chem 7: 01/30/21 05:16 01/30/21 05:16 Labs: Abnormal Lab Results - Last 24 Hours (Table) 01/30/21 01/30/21 Range/Units 05:16 05:16 WBC 18.13 H (4.50-10.00) X 10*3/uL RBC 3.30 L (4.10-5.20) X 10*6/uL Hgb 8.9 L (12.0-15.0) g/dL Hct 28.3 L (37.2-46.3) % MCHC 31.4 L (32.0-37.0) g/dL RDW 15.6 H (11.5-14.5) % Plt Count 715 H (140-440) X 10*3/uL Immature Gran # 0.40 H (0.00-0.04) X 10*3/uL Neutrophils # 14.04 H (1.80-7.70) X 10*3/uL Monocytes # 1.87 H (0.20-1.00) X 10*3/uL Eosinophils # 0.02 L (0.04-0.35) X 10*3/uL Sodium 129 L (135-145) mmol/L Chloride 90 L (96-109) mmol/L BUN 6.0 L (9.0-27.0) mg/dL Creatinine 0.3 L (0.6-1.5) mg/dL Glucose 119 H (70-110) mg/dL Calcium 8.4 L (8.7-10.3) mg/dL Microbiology - Last 24 Hours (Table) 01/26/21 17:15 Blood Culture - Preliminary Blood No Growth after 72 hours 01/26/21 17:33 Blood Culture - Preliminary Blood No Growth after 72 hours 01/28/21 20:42 Gram Stain - Preliminary Sputum Sputum Culture - Preliminary Assessment and Plan Assessment: Impression: Acute hypoxic respiratory failure secondary to acute right lower lobe pneumonia, and loculated right-sided pleural effusion, could be parapneumonic, doubt empyema. History of small cell lung cancer, presently undergoing chemotherapy. Hyponatremia most likely secondary to SIADH although hypovolemic hyponatremia is not entirely ruled out. Sodium today is 132. Presenting sodium was 122 Suspect some component of underlying COPD. Tobacco dependence syndrome. History of GERD. History of migraine cephalgia. Recommendation: CT of the chest was reviewed and quite concerning that the patient is getting worse. Titrate oxygen accordingly. Continue antibiotics patient is on Maxipime and Zithromax. Continue hydration. Continue bronchodilators. Continue to monitor sodium. Prognosis is extremely poor and guarded, May have to seriously consider hospice on this patient. We will continue to follow. Time with Patient: Less than 30
[2021-01-30] MEDS: AZITHROMYCIN 500 MG TAB PO SCH (20:18)
[2021-01-30] MEDS: AMITRIPTYLINE HCL 50 MG TAB PO SCH (20:19)
[2021-01-31] MEDS: CEFEPIME 2 GM in SODIUM CHLORIDE 0.9% 100 ML IVPB SCH ×3 (00:48→15:42)
[2021-01-31] MEDS: ESCITALOPRAM 5 MG TAB PO SCH (09:01)
[2021-01-31] MEDS: METOPROLOL SUCCINATE (ER) 25 MG TAB.ER.24H PO SCH (09:02)
[2021-01-31] MEDS: oxyCODONE-APAP 7.5-325MG 1 EACH TAB PO PRN ×2 (09:02→20:20)
[2021-01-31] MEDS: PANTOPRAZOLE 40 MG/10 ML VIAL IVP SCH (09:02)
--- NOTE | 2021-01-31 10:07 | P.PN ---
Subjective Progress Note Date: 01/31/21 Principal diagnosis: Shortness of breath. Patient was reevaluated today on 01/28/2021, feeling better, breathing easier, hardly any cough, no wheezing, no fever, no chills, no hemoptysis continues to have leukocytosis but improving WBC count is 26.9 hemoglobin is 8.9, electrolyte s are abnormal with low sodium but improving potassium is 3.4. Normal renal profile is noted. Blood cultures are negative, urine culture is showing strep agalactiae group B, however the count is not significant Patient was reevaluated today on 01/29/2021, sitting at a bedside chair, seems to be comfortable, she is on 5 L nasal cannula, O2 saturation is running between 91 up to 96%. Continues to have leukocytosis but seems to be improving with WBC count of 21.4. Electrolytes are normal renal profile is normal. PCR for coronavirus was not detected. Last chest x-ray showed dense consolidation in the right lung base. Reevaluated today on 01/30/2021, patient seems to be comfortable, sitting at a bedside chair, remains on 5 L nasal cannula, patient is about the same. However her chest x-ray shows significant worsening of the right lower lobe consolidation and possibly a combination of postobstructive pneumonitis and right lung mass. CT of the chest showed a 5.3 cm hypodense area within the right midlung, could be related to her underlying malignancy with pneumonia. There is also evidence of loculated pleural effusion, will assess with a ultrasound, and decide whether it is possible to drain. 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 I reviewed the CT of the chest myself, there is indeed extensive likely pleural effusion on the right. Empyema is not entirely ruled out, but felt to be less likely. Progress note dated 01/31/2021. Currently, the patient's on 2 L nasal cannula. She's getting saline at 20 mL an hour. She appears very weak. She states immediately today and she would like to be discharged home. She states that she has a and a son who could take care of her at home. I told that would be up to Dr. Mayfield her overall prognosis is not very good given her history of small cell lung cancer. She denies any pain or discomfort. She denies any fever or chills. No labs today. Labs yesterday of significance includes a hemoglobin 8.9, platelet count 715, 000, and of sodium 129. Chest x-ray from January 30 shows extensive consolidation throughout the right mid and lower lung zones as well as a patchy retrocardiac infiltrate. Computed tomography scan shows a 5.3 cm hypodense area within the right midlung which may be cavitating pneumonia or mass. There is extensive loculated pleural effusion on the right, and a new mass in the left mid lung measuring 1.4 cm. Objective - Vital Signs Vital signs: Vital Signs Temp 97.9 F 01/31/21 06:55 Pulse 106 H 01/31/21 06:55 Resp 18 01/31/21 06:55 BP 161/81 01/31/21 06:55 Pulse Ox 91 L 01/31/21 06:55 Intake & Output 01/30/21 01/31/21 01/31/21 18:59 06:59 18:59 Intake Total 420 Output Total 300 Balance 420 -300 Weight 58.06 kg Intake: Oral 420 Output: Urine 300 Other: Voiding Method Bedside Commode Bedside Commode # Voids 1 - Exam No acute distress, oriented 3. Very weak and frail appearing. Currently on 2 L nasal cannula. HEENT examination is grossly unremarkable. Mucous membranes are moist. No oral lesions. Neck supple. Full range of motion. No adenopathy thyromegaly or neck vein distention. Cardiovascular examination reveals regular rhythm rate. S1-S2 normal. No S3 or S4. No discernible murmur noted. Heart rate about 100 bpm. Lungs reveal diminished breath sounds of the right base, with some dullness. A few scattered rhonchi are noted on the right side, with some crackles at the bases. Left lung is mostly clear. Abdomen soft bowel sounds are heard. No masses or tenderness. Extremities are intact. No cyanosis clubbing or edema. Skin is without rash or lesion. Neurologic examination is brief but nonfocal. - Labs CBC & Chem 7: 01/30/21 05:16 01/30/21 05:16 Labs: Abnormal Lab Results - Last 24 Hours (Table) 01/30/21 Range/Units 05:16 Sodium 129 L (135-145) mmol/L Chloride 90 L (96-109) mmol/L BUN 6.0 L (9.0-27.0) mg/dL Creatinine 0.3 L (0.6-1.5) mg/dL Glucose 119 H (70-110) mg/dL Calcium 8.4 L (8.7-10.3) mg/dL Microbiology - Last 24 Hours (Table) 01/28/21 20:42 Gram Stain - Final Sputum Sputum Culture - Final Tessy albicans 01/26/21 17:15 Blood Culture - Preliminary Blood No Growth after 96 hours 01/26/21 17:33 Blood Culture - Preliminary Blood No Growth after 96 hours Assessment and Plan Assessment: Acute hypoxemic respiratory failure, secondary to right lower lobe pneumonia, and loculated right-sided effusion. History of small cell lung cancer, currently under going chemotherapy. Recent bronchoscopy on December 12, 2020, for right upper lobe mass, positive for small cell lung cancer Suspect underlying COPD. Hyponatremia, which may relate to SIADH from the patients small cell lung cancer. Anemia of chronic disease. Ongoing tobacco use with nicotine addiction. History of skin cancer. History of gastroesophageal reflux disease. History of hypertension. History of migraine cephalgia. History of chronic sinus disease. Plan: Plan dated 01/31/2021. The patient's computed tomography scan was reviewed, and it appears that the findings in the chest including the new lesion in the left lung are quite concerning, and worsening. The patient's currently on 2 L. She remains on Zithromax and cefepime. She does verbalize to me today that she wants to be discharged. She is currently only on 2 L. Her overall prognosis remains poor. Urine did reveal group B strep. We will continue to follow make recommendations will I did tell her that the decision for discharge would be left up to Dr. Mayfield. Time with Patient: Less than 30
[2021-01-31] MEDS: AZITHROMYCIN 500 MG TAB PO SCH (20:20)
[2021-01-31] MEDS: AMITRIPTYLINE HCL 50 MG TAB PO SCH (20:21)
[2021-02-01] MEDS: CEFEPIME 2 GM in SODIUM CHLORIDE 0.9% 100 ML IVPB SCH ×4 (00:40→23:35)
[2021-02-01] MEDS: oxyCODONE-APAP 7.5-325MG 1 EACH TAB PO PRN ×3 (03:59→20:40)
[2021-02-01] MEDS: PANTOPRAZOLE 40 MG/10 ML VIAL IVP SCH (09:44)
[2021-02-01] MEDS: ESCITALOPRAM 5 MG TAB PO SCH (09:44)
[2021-02-01] MEDS: METOPROLOL SUCCINATE (ER) 25 MG TAB.ER.24H PO SCH (09:44)
--- NOTE | 2021-02-01 12:42 | P.PN ---
Subjective Progress Note Date: 02/01/21 Principal diagnosis: Shortness of breath. Patient was reevaluated today on 01/28/2021, feeling better, breathing easier, hardly any cough, no wheezing, no fever, no chills, no hemoptysis continues to have leukocytosis but improving WBC count is 26.9 hemoglobin is 8.9, electrolyte s are abnormal with low sodium but improving potassium is 3.4. Normal renal profile is noted. Blood cultures are negative, urine culture is showing strep agalactiae group B, however the count is not significant Patient was reevaluated today on 01/29/2021, sitting at a bedside chair, seems to be comfortable, she is on 5 L nasal cannula, O2 saturation is running between 91 up to 96%. Continues to have leukocytosis but seems to be improving with WBC count of 21.4. Electrolytes are normal renal profile is normal. PCR for coronavirus was not detected. Last chest x-ray showed dense consolidation in the right lung base. Reevaluated today on 01/30/2021, patient seems to be comfortable, sitting at a bedside chair, remains on 5 L nasal cannula, patient is about the same. However her chest x-ray shows significant worsening of the right lower lobe consolidation and possibly a combination of postobstructive pneumonitis and right lung mass. CT of the chest showed a 5.3 cm hypodense area within the right midlung, could be related to her underlying malignancy with pneumonia. There is also evidence of loculated pleural effusion, will assess with a ultrasound, and decide whether it is possible to drain. 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 I reviewed the CT of the chest myself, there is indeed extensive likely pleural effusion on the right. Empyema is not entirely ruled out, but felt to be less likely. Progress note dated 01/31/2021. Currently, the patient's on 2 L nasal cannula. She's getting saline at 20 mL an hour. She appears very weak. She states immediately today and she would like to be discharged home. She states that she has a and a son who could take care of her at home. I told that would be up to Dr. Mayfield her overall prognosis is not very good given her history of small cell lung cancer. She denies any pain or discomfort. She denies any fever or chills. No labs today. Labs yesterday of significance includes a hemoglobin 8.9, platelet count 715, 000, and of sodium 129. Chest x-ray from January 30 shows extensive consolidation throughout the right mid and lower lung zones as well as a patchy retrocardiac infiltrate. Computed tomography scan shows a 5.3 cm hypodense area within the right midlung which may be cavitating pneumonia or mass. There is extensive loculated pleural effusion on the right, and a new mass in the left mid lung measuring 1.4 cm. Progress note dated 02/01/2021. Currently, the patient remains on 2 L nasal cannula. She's not receiving any IV fluids. She asked me again today that she would like to be discharged. I told her that was up to Dr. Mayfield. She states that she has a at home and a son that could take care of her. No new labs today. Chest x-ray, and computed tomography scan from January 30 were reviewed yesterday. Objective - Vital Signs Vital signs: Vital Signs Temp 97.8 F 02/01/21 08:29 Pulse 102 H 02/01/21 08:29 Resp 20 02/01/21 08:29 BP 139/72 02/01/21 08:29 Pulse Ox 94 L 02/01/21 08:29 Intake & Output 01/31/21 02/01/21 02/01/21 18:59 06:59 18:59 Intake Total 240 240 Output Total 301 Balance 240 240 -301 Intake: Oral 240 240 Output: Urine 300 Stool 1 Other: Voiding Method Bedside Commode Bedside Commode # Voids 4 5 2 # Bowel Movements 1 1 - Exam No acute distress, oriented 3. Very weak and frail appearing. Currently on 2 L nasal cannula. Saturations 94%. HEENT examination is grossly unremarkable. Mucous membranes are moist. No oral lesions. Neck supple. Full range of motion. No adenopathy thyromegaly or neck vein distention. Cardiovascular examination reveals regular rhythm rate. S1-S2 normal. No S3 or S4. No discernible murmur noted. Heart rate about 102 bpm. Lungs reveal diminished breath sounds of the right base, with some dullness. A few scattered rhonchi are noted on the right side, with some crackles at the bases. Left lung is mostly clear. Exam is unchanged. Abdomen soft bowel sounds are heard. No masses or tenderness. Extremities are intact. No cyanosis clubbing or edema. Skin is without rash or lesion. Neurologic examination is brief but nonfocal. - Labs CBC & Chem 7: 01/30/21 05:16 01/30/21 05:16 Labs: Microbiology - Last 24 Hours (Table) 01/26/21 17:33 Blood Culture - Preliminary Blood No Growth after 120 hours 01/26/21 17:15 Blood Culture - Preliminary Blood No Growth after 120 hours 01/28/21 20:42 Gram Stain - Final Sputum Sputum Culture - Final Tessy albicans Assessment and Plan Assessment: Acute hypoxemic respiratory failure, secondary to right lower lobe pneumonia, and loculated right-sided effusion. History of small cell lung cancer, currently under going chemotherapy. Recent bronchoscopy on December 12, 2020, for right upper lobe mass, positive for small cell lung cancer Suspect underlying COPD. Hyponatremia, which may relate to SIADH from the patients small cell lung cancer. Anemia of chronic disease. Ongoing tobacco use with nicotine addiction. History of skin cancer. History of gastroesophageal reflux disease. History of hypertension. History of migraine cephalgia. History of chronic sinus disease. Plan: Plan dated 01/31/2021. The patient's computed tomography scan was reviewed, and it appears that the findings in the chest including the new lesion in the left lung are quite concerning, and worsening. The patient's currently on 2 L. She remains on Zithromax and cefepime. She does verbalize to me today that she wants to be discharged. She is currently only on 2 L. Her overall prognosis remains poor. Urine did reveal group B strep. We will continue to follow make recommendations will I did tell her that the decision for discharge would be left up to Dr. Mayfield. Plan dated 02/01/2021. Currently, the patient's doing about the same as she did yesterday. She remains on 2 L. Saturations are reasonable. She's not on any IV fluids. She asked me again today about being discharged. I told up with her primary care provider. Additional recommendations and suggestions are forthcoming. Prognosis is guarded. CAT scan and chest x-ray are reviewed. Time with Patient: Less than 30
--- NOTE | 2021-02-01 18:15 | P.PN ---
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 Reports she was scheduled for her second chemotherapy, she was weak with fever and was referred to the ER. Payton/Green sputum reported. On admission T-max 100.1, mild tachycardia, hypoxic-90% on room air, requiring 2 L nasal cannula to maintain O2 sats in the mid to high 90s. WBC 33.1, hemoglobin 10.1, platelets 774, neutrophils 30.7, lymphocytes 0.99, sodium 122 up to 127, potassium 2.9-now 3.2, carb 36, BUN 20, creatinine 0.38, lactic acid 1, magnesium 1.7, UA reporting rare bacteria, large leukocytes, urine WBCs 27, negative for nitrates, urine culture in progress. Lai virus not detected. Chest x-ray reported extensive consolidation of the right lung base new compared to recent exam, atelectasis left lung base unchanged with no heart failure. EKG reported sinus tachycardia with PACs. 01/31/2021 Patient is seen and evaluated in room at bedside; remains on on 2 L nasal cannula. She's getting saline at 20 mL an hour. She appears very weak. She states immediately today and she would like to be discharged home. She states that she has a and a son who could take care of her at home. I told that would be up to Dr. Mayfield her overall prognosis is not very good given her history of small cell lung cancer. She denies any pain or discomfort. She denies any fever or chills. No labs today. Labs yesterday of significance includes a hemoglobin 8.9, platelet count 715,000, and of sodium 129. Chest x- ray from January 30 shows extensive consolidation throughout the right mid and lower lung zones as well as a patchy retrocardiac infiltrate. Computed tomography scan shows a 5.3 cm hypodense area within the right midlung which may be cavitating pneumonia or mass. There is extensive loculated pleural effusion on the right, and a new mass in the left mid lung measuring 1.4 cm. Objective - Vital Signs Vital signs: Vital Signs Temp 97.9 F 01/31/21 06:55 Pulse 106 H 01/31/21 06:55 Resp 18 01/31/21 06:55 BP 161/81 01/31/21 06:55 Pulse Ox 91 L 01/31/21 06:55 Intake & Output 01/30/21 01/31/21 01/31/21 18:59 06:59 18:59 Intake Total 420 Output Total 300 Balance 420 -300 Weight 58.06 kg Intake: Oral 420 Output: Urine 300 Other: Voiding Method Bedside Commode Bedside Commode # Voids 1 - Exam GENERAL: Alert and oriented 3, Sitting up in bed,no acute distress. HEENT: Conjunctivae normal. eyes normal. Oral mucosa moist CARDIOVASCULAR: S1, S2, irregular. Mild Tachycardia ,No murmur RESPIRATION: Breath sounds diminished in the bases. Scattered rhonchi , right basilar crackles. ABDOMEN: Soft, nontender . No guarding. no masses palpable. Bowel sounds heard. LEGS: No edema. no swelling NERVOUS SYSTEM: Cranial N 2-12 grossly normal. Moves all 4 limbs. Diffuse weakness, No focal deficits. Strength and sensation grossly intact. Skin: Warm and dry, no rash - Labs CBC & Chem 7: 01/30/21 05:16 01/30/21 05:16 Labs: Microbiology - Last 24 Hours (Table) 01/28/21 20:42 Gram Stain - Final Sputum Sputum Culture - Final Tessy albicans 01/26/21 17:15 Blood Culture - Preliminary Blood No Growth after 96 hours 01/26/21 17:33 Blood Culture - Preliminary Blood No Growth after 96 hours Assessment and Plan Assessment: Sepsis secondary to acute right lower lobe pneumonia, possibly aspiration in a patient with history of moderate to severe pharyngeal dysphagia Acute hypoxic respiratory failure secondary to the above Dehydration Hyponatremia, hypovolemic secondary to the above, possibly related to SIADH s econdary to chemotherapy Generalized weakness, medical debility, probably secondary to chemotherapy as well as infection Thoracic spine neurostimulator Small cell Lung cancer, currently undergoing chemotherapy Anemia secondary to chemotherapy COPD Extensive lifelong history of smoking, quit in 2017 Gastroesophageal reflux disease Hypertension Migraines,history of History of skin cancer Hypokalemia
--- NOTE | 2021-02-01 18:19 | P.PN ---
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 Reports she was scheduled for her second chemotherapy, she was weak with fever and was referred to the ER. Payton/Green sputum reported. On admission T-max 100.1, mild tachycardia, hypoxic-90% on room air, requiring 2 L nasal cannula to maintain O2 sats in the mid to high 90s. WBC 33.1, hemoglobin 10.1, platelets 774, neutrophils 30.7, lymphocytes 0.99, sodium 122 up to 127, potassium 2.9-now 3.2, carb 36, BUN 20, creatinine 0.38, lactic acid 1, magnesium 1.7, UA reporting rare bacteria, large leukocytes, urine WBCs 27, negative for nitrates, urine culture in progress. Lai virus not detected. Chest x-ray reported extensive consolidation of the right lung base new compared to recent exam, atelectasis left lung base unchanged with no heart failure. EKG reported sinus tachycardia with PACs. 01/31/2021 Patient is seen and evaluated in room at bedside; remains on on 2 L nasal cannula. She's getting saline at 20 mL an hour. She appears very weak. She states immediately today and she would like to be discharged home. She states that she has a and a son who could take care of her at home. I told that would be up to Dr. Mayfield her overall prognosis is not very good given her history of small cell lung cancer. She denies any pain or discomfort. She denies any fever or chills. No labs today. Labs yesterday of significance includes a hemoglobin 8.9, platelet count 715,000, and of sodium 129. Chest x- ray from January 30 shows extensive consolidation throughout the right mid and lower lung zones as well as a patchy retrocardiac infiltrate. Computed tomography scan shows a 5.3 cm hypodense area within the right midlung which may be cavitating pneumonia or mass. There is extensive loculated pleural effusion on the right, and a new mass in the left mid lung measuring 1.4 cm. 02/01/2021 Patient is seen and evaluated with son at bedside; patient is on 2 L nasal cannula. She's not receiving any IV fluids. She asked me again today that she would like to be discharged. She states that she has a at home and a son that could take care of her. No new labs today. Patient discussed in great detail with nursing staff and then with family at bedside; patient remains extremely weak with very poor oral intake; concerns about aspiration which family has decided not to pursue; I did talk to patient's and encourage to have a meeting with oncology to set up further goals of care; son reports patient's daughter is maintained decision making person and they will talk to Dr. Mayfield and oncologist tomorrow and decide further course of treatment Patient's daughter did talk to nursing staff and once all necessary equipment delivered at home prior to taking patient home from the hospital Objective - Vital Signs Vital signs: Vital Signs Temp 97.8 F 02/01/21 08:29 Pulse 102 H 02/01/21 08:29 Resp 20 02/01/21 08:29 BP 139/72 02/01/21 08:29 Pulse Ox 94 L 02/01/21 08:29 Intake & Output 01/31/21 02/01/21 02/01/21 18:59 06:59 18:59 Intake Total 240 240 Output Total 300 Balance 240 240 -300 Intake: Oral 240 240 Output: Urine 300 Other: Voiding Method Bedside Commode Bedside Commode # Voids 4 5 5 # Bowel Movements 1 1 - Exam GENERAL: Alert and oriented 3, Sitting up in bed,no acute distress. HEENT: Conjunctivae normal. eyes normal. Oral mucosa moist CARDIOVASCULAR: S1, S2, irregular. Mild Tachycardia ,No murmur RESPIRATION: Breath sounds diminished in the bases. Scattered rhonchi , right basilar crackles. ABDOMEN: Soft, nontender . No guarding. no masses palpable. Bowel sounds heard. LEGS: No edema. no swelling NERVOUS SYSTEM: Cranial N 2-12 grossly normal. Moves all 4 limbs. Diffuse weakness, No focal deficits. Strength and sensation grossly intact. Skin: Warm and dry, no rash - Labs CBC & Chem 7: 01/30/21 05:16 01/30/21 05:16 Labs: Microbiology - Last 24 Hours (Table) 01/26/21 17:33 Blood Culture - Preliminary Blood No Growth after 120 hours 01/26/21 17:15 Blood Culture - Preliminary Blood No Growth after 120 hours 01/28/21 20:42 Gram Stain - Final Sputum Sputum Culture - Final Tessy albicans Assessment and Plan Assessment: Sepsis secondary to acute right lower lobe pneumonia, possibly aspiration in a patient with history of moderate to severe pharyngeal dysphagia Acute hypoxic respiratory failure secondary to the above Dehydration Hyponatremia, hypovolemic secondary to the above, 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
[2021-02-01] MEDS: AZITHROMYCIN 500 MG TAB PO SCH (20:39)
[2021-02-01] MEDS: AMITRIPTYLINE HCL 50 MG TAB PO SCH (20:40)
[2021-02-02] MEDS: oxyCODONE-APAP 7.5-325MG 1 EACH TAB PO PRN ×3 (05:44→21:07)
[2021-02-02] MEDS: CEFEPIME 2 GM in SODIUM CHLORIDE 0.9% 100 ML IVPB SCH ×3 (08:44→23:06)
[2021-02-02] MEDS: PANTOPRAZOLE 40 MG/10 ML VIAL IVP SCH (08:45)
[2021-02-02] MEDS: METOPROLOL SUCCINATE (ER) 25 MG TAB.ER.24H PO SCH (08:45)
[2021-02-02] MEDS: ESCITALOPRAM 5 MG TAB PO SCH (08:47)
[2021-02-02 08:55] LABS: Basophils # (A) 0.08 X 10*3/uL (0.00-0.10); Basophils % (A) 0.5 %; Eosinophils # (A) 0.03 X 10*3/uL (0.04-0.35); Eosinophils % (A) 0.2 %; HCT 27.5 % (37.2-46.3); HGB 8.7 g/dL (12.0-15.0); Lymphocytes # (A) 1.39 X 10*3/uL (0.90-5.00); Lymphocytes % (A) 7.9 %; MCH 26.9 pg (27.0-32.0); MCHC 31.6 g/dL (32.0-37.0); MCV 85.1 fL (80.0-97.0); Mean Platelet Volume 9.1 fL (9.5-12.2); Monocytes # (A) 1.41 X 10*3/uL (0.20-1.00); Neutrophils % (A) 80.7 %; Platelet Count 660 X 10*3/uL (140-440); RBC 3.23 X 10*6/uL (4.10-5.20); RDW 15.6 % (11.5-14.5); WBC 17.58 X 10*3/uL (4.50-10.00)
[2021-02-02 11:26] LABS: African American GFR (CKD) 142.2 (60.0-200.0); Anion Gap 9.4 mmol/L (4.00-12.00); Calcium 8.7 mg/dL (8.7-10.3); Carbon Dioxide 32.6 mmol/L (21.6-31.8); Non-African American GFR(CKD) 122.7 (60.0-200.0)
--- NOTE | 2021-02-02 12:32 | P.PN ---
Subjective Progress Note Date: 02/02/21 Principal diagnosis: Acute hypoxic respiratory failure secondary to right lower lobe pneumonia and small cell lung cancer. This is an 80-year-old female that was evaluated in the emergency department on January 26. She was apparently brought in by her family. She apparently has a history of lung cancer, and is an ongoing tobacco user. She is apparently undergoing chemotherapy. The patient came in for increasing shortness of breath, fever, and cough. She recently had lab work that showed a low platelet count. Cough is apparently productive of green mucus. Apparently on the day of her evaluation in the emergency department, she was to receive chemotherapy. Because of fever, she came to the emergency room instead. Currently, the patient is poorly responsive and not a particularly good historian. She does arouse. She is currently not receiving any IV fluids. She's getting nasal cannula at 5 L. Rhythm on the monitor is atrial fibrillation. In addition, she has a history of gastroesophageal reflux disease, hypertension, osteoarthritis, migraine cephalgia, skin cancer, and chronic sinus disease. Chest x-ray shows a consolidation in the right lower lobe. It is almost masslike. White count is 24.9, hemoglobin 8.7, hematocrit 25.9, platelet count 690,000. PT 12.1, INR 1.2. Sodium 127, up from 122, potassium 3.2, chloride 89, CO2 32, anion gap 6, BUN 11, creatinine 0.32. Urine is yellow and cloudy, leukocyte esterase is largely positive. There are rare bacteria, and 27 WBCs in the urine. In addition, coronavirus testing was negative. Patient was reevaluated today on 01/28/2021, feeling better, breathing easier, hardly any cough, no wheezing, no fever, no chills, no hemoptysis continues to have leukocytosis but improving WBC count is 26.9 hemoglobin is 8.9, electrolytes are abnormal with low sodium but improving potassium is 3.4. Normal renal profile is noted. Blood cultures are negative, urine culture is showing strep agalactiae group B, however the count is not significant Patient was reevaluated today on 01/29/2021, sitting at a bedside chair, seems to be comfortable, she is on 5 L nasal cannula, O2 saturation is running between 91 up to 96%. Continues to have leukocytosis but seems to be improving with WBC count of 21.4. Electrolytes are normal renal profile is normal. PCR for coronavirus was not detected. Last chest x-ray showed dense consolidation in the right lung base. Reevaluated today on 01/30/2021, patient seems to be comfortable, sitting at a bedside chair, remains on 5 L nasal cannula, patient is about the same. However her chest x-ray shows significant worsening of the right lower lobe consolidation and possibly a combination of postobstructive pneumonitis and right lung mass. CT of the chest showed a 5.3 cm hypodense area within the right midlung, could be related to her underlying malignancy with pneumonia. There is also evidence of loculated pleural effusion, will assess with a ultrasound, and decide whether it is possible to drain. 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 I reviewed the CT of the chest myself, there is indeed extensive likely pleural effusion on the right. Empyema is not entirely ruled out, but felt to be less likely. Patient was reevaluated today on 02/02/2021, remains on the regular medical floor, patient is on 2 L nasal cannula, remains on antibiotics, patient is requesting to be discharged home. Her CT of the chest was quite concerning it showed significant multiple pockets of loculated effusion as well as lung cancer and postobstructive pneumonitis. Obviously prognosis on this patient is rather poor, and the patient has no plans to resume chemotherapy or treatment. She was seen by oncology today, and recommended follow-up with the oncologist post discharge. Patient is not a great candidate for surgical intervention or drainage of fluid was chest tube for decortication, and clearly the fluid is loculated based on the CT of the chest. My recommendation to the patient today is to really consider comfort care measures and possibly hospice. Continues to have leukocytosis with WBC count of 17,000 hemoglobin is 8.7 electrodes are normal renal profile is normal Objective - Vital Signs Vital signs: Vital Signs Temp 98.0 F 02/02/21 08:00 Pulse 107 H 02/02/21 08:00 Resp 18 02/02/21 08:00 BP 135/81 02/02/21 08:00 Pulse Ox 99 02/02/21 08:00 Intake & Output 02/01/21 02/02/21 02/02/21 18:59 06:59 18:59 Output Total 301 4 Balance -301 -4 Output: Urine 300 Stool 1 4 Other: Voiding Method Bedside Commode Bedside Commode # Voids 1 1 # Bowel Movements 1 - Exam Physical Exam: Revealed an 80-year-old female in no distress. On 2 L nasal cannula Head: Atraumatic, normocephalic. HEENT:[Neck is supple.] [No neck masses.] [No thyromegaly.] [No JVD.] Chest: [Crackles mostly at the right base, no rhonchi no wheezes. Cardiac Exam: [Normal S1 and S2, no S3 gallop, no murmur.] Abdomen: [Soft, nontender, no megaly, no rebound, no guarding, normal bowel sounds.] Extremities: [No clubbing, no edema, no cyanosis.] Neurological Exam: [No focal neurologic deficit.] Psychiatric: Normal mood affect and normal mental status examination. Skin: No rashes - Labs CBC & Chem 7: 02/02/21 05:34 02/02/21 05:34 Labs: Abnormal Lab Results - Last 24 Hours (Table) 02/02/21 02/02/21 Range/Units 05:34 05:34 WBC 17.58 H (4.50-10.00) X 10*3/uL RBC 3.23 L (4.10-5.20) X 10*6/uL Hgb 8.7 L (12.0-15.0) g/dL Hct 27.5 L (37.2-46.3) % MCH 26.9 L (27.0-32.0) pg MCHC 31.6 L (32.0-37.0) g/dL RDW 15.6 H (11.5-14.5) % Plt Count 660 H (140-440) X 10*3/uL MPV 9.1 L (9.5-12.2) fL Immature Gran # 0.47 H (0.00-0.04) X 10*3/uL Neutrophils # 14.20 H (1.80-7.70) X 10*3/uL Monocytes # 1.41 H (0.20-1.00) X 10*3/uL Eosinophils # 0.03 L (0.04-0.35) X 10*3/uL Potassium 3.0 L (3.5-5.5) mmol/L Chloride 93 L (96-109) mmol/L Carbon Dioxide 32.6 H (21.6-31.8) mmol/L BUN 7.0 L (9.0-27.0) mg/dL Creatinine 0.2 L (0.6-1.5) mg/dL BUN/Creatinine Ratio 35.00 H (12.00-20.00) Ratio Glucose 116 H (70-110) mg/dL Microbiology - Last 24 Hours (Table) 01/26/21 17:15 Blood Culture - Final Blood No Growth after 144 hours 01/26/21 17:33 Blood Culture - Final Blood No Growth after 144 hours Assessment and Plan Assessment: Impression: Acute hypoxic respiratory failure secondary to acute right lower lobe pneumonia, and loculated right-sided pleural effusion, could be parapneumonic, doubt empyema. History of small cell lung cancer, presently undergoing chemotherapy. Hyponatremia most likely secondary to SIADH although hypovolemic hyponatremia is not entirely ruled out. Sodium today is 132. Presenting sodium was 122 Suspect some component of underlying COPD. Tobacco dependence syndrome. History of GERD. History of migraine cephalgia. Recommendation: Continue antibiotics patient is on Maxipime and Zithromax. Continue hydration. Continue bronchodilators. Continue to monitor sodium. Prognosis is extremely poor and guarded, If the patient is requesting and insisted to go home, I would recommend seriously considering hospice care and comfort care measures on this patient. Her overall clinical picture and her overall prognosis is extremely poor. Time with Patient: Less than 30
[2021-02-02] MEDS: POTASSIUM CHLORIDE 10 MEQ in WATER FOR INJECTION 1 100ML.BAG IVPB SCH ×4 (12:50→17:12)
[2021-02-02] MEDS ORDERED: Magnesium Replacement Protocol 1 EACH MISC MISCELLANE PRN (13:02)
--- NOTE | 2021-02-02 15:03 | P.PN ---
Subjective Progress Note Date: 02/02/21 Principal diagnosis: pneumonia, small cell lung carcinoma Patient is doing okay in follow-up, no acute complaints Objective - Vital Signs Vital signs: Vital Signs Temp 98.0 F 02/02/21 08:00 Pulse 107 H 02/02/21 08:00 Resp 18 02/02/21 08:00 BP 135/81 02/02/21 08:00 Pulse Ox 99 02/02/21 08:00 Intake & Output 02/01/21 02/02/21 02/02/21 18:59 06:59 18:59 Output Total 301 4 Balance -301 -4 Output: Urine 300 Stool 1 4 Other: Voiding Method Bedside Commode Bedside Commode # Voids 1 1 # Bowel Movements 1 - Labs CBC & Chem 7: 02/02/21 05:34 02/02/21 05:34 Labs: Abnormal Lab Results - Last 24 Hours (Table) 02/02/21 Range/Units 05:34 WBC 17.58 H (4.50-10.00) X 10*3/uL RBC 3.23 L (4.10-5.20) X 10*6/uL Hgb 8.7 L (12.0-15.0) g/dL Hct 27.5 L (37.2-46.3) % MCH 26.9 L (27.0-32.0) pg MCHC 31.6 L (32.0-37.0) g/dL RDW 15.6 H (11.5-14.5) % Plt Count 660 H (140-440) X 10*3/uL MPV 9.1 L (9.5-12.2) fL Immature Gran # 0.47 H (0.00-0.04) X 10*3/uL Neutrophils # 14.20 H (1.80-7.70) X 10*3/uL Monocytes # 1.41 H (0.20-1.00) X 10*3/uL Eosinophils # 0.03 L (0.04-0.35) X 10*3/uL Microbiology - Last 24 Hours (Table) 01/26/21 17:15 Blood Culture - Final Blood No Growth after 144 hours 01/26/21 17:33 Blood Culture - Final Blood No Growth after 144 hours Assessment and Plan (1) Pneumonia Narrative/Plan: Continue on treatment for the same. Current Visit: Yes Status: Acute Priority: High Code(s): J18.9 - PNEUMONIA, UNSPECIFIED ORGANISM SNOMED Code(s): 453546610 (2) Small cell lung carcinoma Narrative/Plan: Plan is hold chemotherapy until re-evaluated and PS recovered adequately for cancer treatment. She is to follow-up with Primary Oncologist prior to resuming any treatment. Current Visit: Yes Status: Acute Priority: High Code(s): C34.90 - MALIGNANT NEOPLASM OF UNSP PART OF UNSP BRONCHUS OR LUNG SNOMED Code(s): 636726779 Plan: CBC is stabilized today. Continue to monitor. Doctor attests: I performed a history and physical examination of this patient, developed impression and plan of care. Discussed with dictator. I agree with dictators note, documented as a scribe.
--- NOTE | 2021-02-02 16:50 | P.PN ---
Subjective Progress Note Date: 02/02/21 This is an 80-year-old female with history of small cell lung cancer, currently undergoing chemotherapy, gastroesophageal reflux disease, hypertension, osteoarthritis, pain stimulator in back, former extensive nicotine dependence- quit in 2017 and multiple other medical issues, presented to the ER with comp laints of worsening shortness of breath, cough and fever. Reports she was scheduled for her second chemotherapy, she was weak with fever and was referred to the ER. Payton/Green sputum reported. On admission T-max 100.1, mild tachycardia, hypoxic-90% on room air, requiring 2 L nasal cannula to maintain O2 sats in the mid to high 90s. WBC 33.1, hemoglobin 10.1, platelets 774, neutrophils 30.7, lymphocytes 0.99, sodium 122 up to 127, potassium 2.9-now 3.2, carb 36, BUN 20, creatinine 0.38, lactic acid 1, magnesium 1.7, UA reporting rare bacteria, large leukocytes, urine WBCs 27, negative for nitrates, urine culture in progress. Lai virus not detected. Chest x-ray reported extensive consolidation of the right lung base new compared to recent exam, atelectasis left lung base unchanged with no heart failure. EKG reported sinus tachycardia with PACs. 01/28/2021 maintained on cefepime and Zithromax, less cough, afebrile, WBC 26.92. Regarding 5 L nasal cannula O2 to maintain O2 sats in the 90s. Urine culture reported strep agalactiae , group B, only 10-49,000 colonies. Maintain ed on IV fluid hydration with sodium improving, currently 131. Potassium 3.4, replacement supplements ordered. 01/29/2021 continues to require 5 L nasal cannula O2 to maintain O2 sats in the 90s in a patient who does not wear any O2 at home. Congested with gurgling cough, productive with brownish greenish. Sputum culture pending. Afebrile WBC trending down 21.42. Sodium continues improving, 132. Potassium supplemented yesterday, up to 3.9. 01/30/21 patient reports she did not get out of bed at all yesterday. Maintaining O2 sats in the 90s on 3 L nasal cannula. Mild tachycardia. Less congestion today. Afebrile, WBC 18. Evaluated by speech therapy yesterday with findings consistent with 2018 modified barium swallow, moderate to severe pharyngeal dysphagia, modified diet discussed, patient declining. Denies chest pain, palpitations. 02/02/2021 maintaining O2 sats in the 90s on 2-3 L nasal cannula, mild tachycardia with heart rate in the low 100s. Afebrile, WBC 17.58. Sodium 135, potassium 3, bicarbonate 32.6 BUN 7, creatinine 0.2. Recent CT reported 5.3 cm hypodense area within the right midlung, may be a cavitary lesion from pneumonia or mass, loculated empyema, extensive loculated pleural effusions on the right, new mass in left mid lung measuring 1.[address] reviewed by pulmonary, patient not a good candidate for surgical intervention/drainage/chest tube for decortication with recommendations for comfort care/hospice. Afebrile, WBC 17. Objective - Vital Signs Vital signs: Vital Signs Temp 98.0 F 02/02/21 15:17 Pulse 106 H 02/02/21 15:17 Resp 18 02/02/21 15:17 BP 113/74 02/02/21 15:17 Pulse Ox 93 L 02/02/21 15:17 Intake & Output 02/01/21 02/02/21 02/02/21 18:59 06:59 18:59 Output Total 301 4 Balance -301 -4 Output: Urine 300 Stool 1 4 Other: Voiding Method Bedside Commode Bedside Commode # Voids 1 1 # Bowel Movements 1 - Exam PHYSICAL EXAM: VITAL SIGNS: As above GENERAL: Alert and oriented 3, Sitting up in bed,no acute distress. HEENT: Conjunctivae normal. eyes normal. Oral mucosa moist CARDIOVASCULAR: S1, S2, irregular. Mild Tachycardia ,No murmur RESPIRATION: Breath sounds diminished in the bases,right basilar crackles. ABDOMEN: Soft, nontender . No guarding. no masses palpable. Bowel sounds heard. LEGS: No edema. no swelling NERVOUS SYSTEM: Cranial N 2-12 grossly normal. No focal deficits. Skin: Warm and dry, no rash - Labs CBC & Chem 7: 02/02/21 05:34 02/02/21 05:34 Labs: Abnormal Lab Results - Last 24 Hours (Table) 02/02/21 02/02/21 Range/Units 05:34 05:34 WBC 17.58 H (4.50-10.00) X 10*3/uL RBC 3.23 L (4.10-5.20) X 10*6/uL Hgb 8.7 L (12.0-15.0) g/dL Hct 27.5 L (37.2-46.3) % MCH 26.9 L (27.0-32.0) pg MCHC 31.6 L (32.0-37.0) g/dL RDW 15.6 H (11.5-14.5) % Plt Count 660 H (140-440) X 10*3/uL MPV 9.1 L (9.5-12.2) fL Immature Gran # 0.47 H (0.00-0.04) X 10*3/uL Neutrophils # 14.20 H (1.80-7.70) X 10*3/uL Monocytes # 1.41 H (0.20-1.00) X 10*3/uL Eosinophils # 0.03 L (0.04-0.35) X 10*3/uL Potassium 3.0 L (3.5-5.5) mmol/L Chloride 93 L (96-109) mmol/L Carbon Dioxide 32.6 H (21.6-31.8) mmol/L BUN 7.0 L (9.0-27.0) mg/dL Creatinine 0.2 L (0.6-1.5) mg/dL BUN/Creatinine Ratio 35.00 H (12.00-20.00) Ratio Glucose 116 H (70-110) mg/dL Microbiology - Last 24 Hours (Table) 01/26/21 17:15 Blood Culture - Final Blood No Growth after 144 hours 01/26/21 17:33 Blood Culture - Final Blood No Growth after 144 hours Assessment and Plan Assessment: Sepsis secondary to acute right lower lobe pneumonia, possibly aspiration in a patient with history of moderate to severe pharyngeal dysphagia,with loculated right-sided pleural effusion, Acute hypoxic respiratory failure secondary to the above Dehydration Hyponatremia, hypovolemic secondary to the above, 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 Supplement potassium, magnesium level ordered and pending. Maintain nebulized bronchodilators, antibiotics and gentle IV fluid hydration .as discussed above per pulmonary,prognosis poor and patient not a good candidate for surgical intervention or drainage/decortication, recommending hospice, comfort care. Further discussed in a.m. with both patient and family, regarding discharge plan. Discharge planning in progress for tomorrow. Continue weaning oxygen. The impression and plan of care has been dictated as directed. : I performed a history and examination of this patient, discussed the same with the dictator. I agree with the dictator's note ,documented as a scribe. Any additional findings or plans will be noted.
[2021-02-02] MEDS: AMITRIPTYLINE HCL 50 MG TAB PO SCH (21:07)
[2021-02-02] MEDS: AZITHROMYCIN 500 MG TAB PO SCH (21:08)
[2021-02-03 06:53] LABS: Magnesium 1.6 mg/dL (1.6-2.3); Potassium 3.4 mmol/L (3.5-5.1)
[2021-02-03] MEDS: oxyCODONE-APAP 7.5-325MG 1 EACH TAB PO PRN (07:31)
[2021-02-03] MEDS: METOPROLOL SUCCINATE (ER) 25 MG TAB.ER.24H PO SCH (07:32)
[2021-02-03] MEDS: PANTOPRAZOLE 40 MG/10 ML VIAL IVP SCH (07:32)
[2021-02-03] MEDS: ESCITALOPRAM 5 MG TAB PO SCH (07:33)
[2021-02-03] MEDS: CEFEPIME 2 GM in SODIUM CHLORIDE 0.9% 100 ML IVPB SCH (07:33)
[2021-02-03 07:54] VITALS: BP 158/66; PULSE 116; RESP 16; TEMP 97.8
--- NOTE | 2021-02-03 10:21 | P.PN ---
Progress Note - Text Progress Note Date: 02/03/21 Patient will be discharged home today, and will require a hospital bed for pain management in a patient with history of small cell lung CA, moderate to severe pharyngeal dysphagia requiring strict aspiration precautions with head of bed to be continuously elevated at more than 30; patient will also require bedside commode as she will be room cofined and will also require a wheelchair secondary to her weakness related to cancer in order to complete ADLs that she is unable to do with a cane or a walker. Patient is able to self propel and will also have her daughter to assist her. The impression and plan of care has been dictated as directed. : I performed a history and examination of this patient, discussed the same with the dictator. I agree with the dictator's note ,documented as a scribe. Any additional findings or plans will be noted.
--- NOTE | 2021-02-03 10:47 | P.DS ---
Providers Date of admission: 01/26/21 18:34 Expected date of discharge: 02/03/21 Attending physician: Kamari Mayfield Consults: 01/26/21 18:34 Consult Physician Routine Consulting Provider: To Dove Consult Reason/Comments: Pneumonia, sepsis, lung CA Do you want consulting provider notified?: Already Contacted 01/26/21 18:35 Consult Physician Routine Consulting Provider: Max Lynn Consult Reason/Comments: Lung cancer, sepsis Do you want consulting provider notified?: Yes Primary care physician: Kamari Mayfield [facility] Course: Final Diagnoses: Sepsis secondary to acute right lower lobe pneumonia, possibly aspiration in a patient with history of moderate to severe pharyngeal dysphagia,with loculated right-sided pleural effusion, possible post obstructive pneumonitis .Poor candidate for surgical intervention, drainage, chest tube for decortication as per pulmonary. Acute hypoxic respiratory failure secondary to the above. 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 Possibly metastatic small cell lung CA into the left lung with evidence of new mass in the left mid lung measuring 1.[address] Anemia secondary to chemotherapy COPD Extensive lifelong history of smoking, quit in 2017 Gastroesophageal reflux disease Hypertension Migraines,history of History of skin cancer Hypokalemia Echo magnesium anemia Hospital course:This is an 80-year-old female with history of small cell lung cancer, currently undergoing chemotherapy, gastroesophageal reflux disease, hypertension, osteoarthritis, pain stimulator in back, former extensive nicotine dependence-quit in 2017 and multiple other medical issues, presented to the ER with complaints of worsening shortness of breath, cough and fever. Reports she was scheduled for her second chemotherapy, she was weak with fever and was referred to the ER. Payton/Green sputum reported. On admission T-max 100.1, mild tachycardia, hypoxic-90% on room air, requiring 2 L nasal cannula to maintain O2 sats in the mid to high 90s. WBC 33.1, hemoglobin 10.1, platelets 774, neutrophils 30.7, lymphocytes 0.99, sodium 122 up to 127, potassium 2.9-now 3.2, carb 36, BUN 20, creatinine 0.38, lactic acid 1, magnesium 1.7, UA reporting rare bacteria, large leukocytes, urine WBCs 27, negative for nitrates, urine culture in progress. Lai virus not detected. Chest x-ray reported extensive consolidation of the right lung base new compared to recent exam, atelectasis left lung base unchanged with no heart failure. EKG reported sinus tachycardia with PACs. 01/28/2021 maintained on cefepime and Zithromax, less cough, afebrile, WBC 26.92. Regarding 5 L nasal cannula O2 to maintain O2 sats in the 90s. Urine culture reported strep agalactiae , group B, only 10-49,000 colonies. Maintained on IV fluid hydration with sodium improving, currently 131. Potassium 3.4, replacement supplements ordered. 01/29/2021 continues to require 5 L nasal cannula O2 to maintain O2 sats in the 90s in a patient who does not wear any O2 at home. Congested with gurgling cough, productive with brownish greenish. Sputum culture pending. Afebrile WBC trending down 21.42. Sodium continues improving, 132. Potassium supplemented yesterday, up to 3.9. 01/30/21 patient reports she did not get out of bed at all yesterday. Maintaining O2 sats in the 90s on 3 L nasal cannula. Mild tachycardia. Less congestion today. Afebrile, WBC 18. Evaluated by speech therapy yesterday with findings consistent with 2018 modified barium swallow, moderate to severe pharyngeal dysphagia, modified diet discussed, patient declining. Denies chest pain, palpitations. 02/02/2021 maintaining O2 sats in the 90s on 2-3 L nasal cannula, mild tachycardia with heart rate in the low 100s. Afebrile, WBC 17.58. Sodium 135, potassium 3, bicarbonate 32.6 BUN 7, creatinine 0.2. Recent CT reported 5.3 cm hypodense area within the right midlung, may be a cavitary lesion from pneumonia or mass, loculated empyema, extensive loculated pleural effusions on the right, new mass in left mid lung measuring 1.[address] reviewed by pulmonary, patient not a good candidate for surgical intervention/drainage/chest tube for decortication with recommendations for comfort care/hospice. Afebrile, WBC 17. Family meeting with both patient and daughter. Patient continues to ask for discharge. Discussed new CT findings, as above in addition to patient being a poor candidate for chest tube /decortication. Recommending discharge home with hospice. Informational hospice meeting ordered. Patient will be discharged home today in a stable condition with guarded prognosis. Patient will require a hospital bed for pain management in a patient with history of small cell lung CA, moderate to severe pharyngeal dysphagia requiring strict aspiration precautions with head of bed to be continuously elevated at more than 30; patient will also require bedside commode as she will be room cofined and will also require a wheelchair secondary to her weakness related to cancer in order to complete ADLs that she is unable to do with a cane or a walker. Patient is able to self propel and will also have her daughter to assist her. The impression and plan of care has been dictated as directed. : I performed a history and examination of this patient, discussed the same with the dictator. I agree with the dictator's note ,documented as a scribe. Any additional findings or plans will be noted. Patient Condition at Discharge: Stable Plan - Discharge Summary Discharge Rx Participant: No New Discharge Prescriptions: New Pantoprazole Sodium [Protonix] 40 mg PO DAILY #30 tablet. Cefuroxime Axetil [Ceftin] 500 mg PO BID 2 Days #4 tab Continue amLODIPine BESYLATE [Norvasc] 10 mg PO DAILY Metoprolol Succinate (ER) [Toprol XL] 25 mg PO QAM Escitalopram [Lexapro] 5 mg PO DAILY oxyCODONE-APAP 7.5-325MG [Percocet 7.5-325 mg] 1 tab PO TID PRN PRN Reason: Pain Meloxicam 15 mg PO DAILY PRN PRN Reason: ARTHIRITIS Furosemide [Lasix] 20 mg PO DAILY Amitriptyline HCl [Elavil] 50 mg PO HS Discontinued hydroCHLOROthiazide [Hydrodiuril] 25 mg PO DAILY Ibuprofen [Motrin] 800 mg PO Q8H PRN PRN Reason: Pain Discharge Medication List amLODIPine BESYLATE [Norvasc] 10 mg PO DAILY 01/26/16 [History] Escitalopram [Lexapro] 5 mg PO DAILY 04/17/18 [History] Metoprolol Succinate (ER) [Toprol XL] 25 mg PO QAM 04/17/18 [History] oxyCODONE-APAP 7.5-325MG [Percocet 7.5-325 mg] 1 tab PO TID PRN 10/16/20 [History] Amitriptyline HCl [Elavil] 50 mg PO HS 01/26/21 [History] Furosemide [Lasix] 20 mg PO DAILY 01/26/21 [History] Meloxicam 15 mg PO DAILY PRN 01/26/21 [History] Cefuroxime Axetil [Ceftin] 500 mg PO BID 2 Days #4 tab 02/03/21 [Rx] Pantoprazole Sodium [Protonix] 40 mg PO DAILY #30 tablet. 02/03/21 [Rx] Follow up Appointment(s)/Referral(s): [facility] [NON-STAFF] - As Needed (Supplir of commode, hospital bed, and wheelchair. ) [facility], [NON-STAFF] - 1-2 Days Max Lynn MD [STAFF PHYSICIAN] - 2 Weeks Kamari Mayfield DO [Primary Care Provider] - 3 Days Activity/Diet/Wound Care/Special Instructions: Hospice informational meeting pending Discharge Disposition: HOME WITH HOME HEALTH SERVICES
[2021-02-03] MEDS: POTASSIUM CHLORIDE ER 20 MEQ TAB.ER PO SCH ×2 (11:05→13:32)
--- NOTE | 2021-02-03 12:02 | P.PN ---
Subjective Progress Note Date: 02/03/21 Principal diagnosis: Acute hypoxic respiratory failure secondary to right lower lobe pneumonia and small cell lung cancer. This is an 80-year-old female that was evaluated in the emergency department on January 26. She was apparently brought in by her family. She apparently has a history of lung cancer, and is an ongoing tobacco user. She is apparently undergoing chemotherapy. The patient came in for increasing shortness of breath, fever, and cough. She recently had lab work that showed a low platelet count. Cough is apparently productive of green mucus. Apparently on the day of her evaluation in the emergency department, she was to receive chemotherapy. Because of fever, she came to the emergency room instead. Currently, the patient is poorly responsive and not a particularly good historian. She does arouse. She is currently not receiving any IV fluids. She's getting nasal cannula at 5 L. Rhythm on the monitor is atrial fibrillation. In addition, she has a history of gastroesophageal reflux disease, hypertension, osteoarthritis, migraine cephalgia, skin cancer, and chronic sinus disease. Chest x-ray shows a consolidation in the right lower lobe. It is almost masslike. White count is 24.9, hemoglobin 8.7, hematocrit 25.9, platelet count 690,000. PT 12.1, INR 1.2. Sodium 127, up from 122, potassium 3.2, chloride 89, CO2 32, anion gap 6, BUN 11, creatinine 0.32. Urine is yellow and cloudy, leukocyte esterase is largely positive. There are rare bacteria, and 27 WBCs in the urine. In addition, coronavirus testing was negative. Patient was reevaluated today on 01/28/2021, feeling better, breathing easier, hardly any cough, no wheezing, no fever, no chills, no hemoptysis continues to have leukocytosis but improving WBC count is 26.9 hemoglobin is 8.9, electrolytes are abnormal with low sodium but improving potassium is 3.4. Normal renal profile is noted. Blood cultures are negative, urine culture is showing strep agalactiae group B, however the count is not significant Patient was reevaluated today on 01/29/2021, sitting at a bedside chair, seems to be comfortable, she is on 5 L nasal cannula, O2 saturation is running between 91 up to 96%. Continues to have leukocytosis but seems to be improving with WBC count of 21.4. Electrolytes are normal renal profile is normal. PCR for coronavirus was not detected. Last chest x-ray showed dense consolidation in the right lung base. Reevaluated today on 01/30/2021, patient seems to be comfortable, sitting at a bedside chair, remains on 5 L nasal cannula, patient is about the same. However her chest x-ray shows significant worsening of the right lower lobe consolidation and possibly a combination of postobstructive pneumonitis and right lung mass. CT of the chest showed a 5.3 cm hypodense area within the right midlung, could be related to her underlying malignancy with pneumonia. There is also evidence of loculated pleural effusion, will assess with a ultrasound, and decide whether it is possible to drain. 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 I reviewed the CT of the chest myself, there is indeed extensive likely pleural effusion on the right. Empyema is not entirely ruled out, but felt to be less likely. Patient was reevaluated today on 02/02/2021, remains on the regular medical floor, patient is on 2 L nasal cannula, remains on antibiotics, patient is requesting to be discharged home. Her CT of the chest was quite concerning it showed significant multiple pockets of loculated effusion as well as lung cancer and postobstructive pneumonitis. Obviously prognosis on this patient is rather poor, and the patient has no plans to resume chemotherapy or treatment. She was seen by oncology today, and recommended follow-up with the oncologist post discharge. Patient is not a great candidate for surgical intervention or drainage of fluid was chest tube for decortication, and clearly the fluid is loculated based on the CT of the chest. My recommendation to the patient today is to really consider comfort care measures and possibly hospice. Continues to have leukocytosis with WBC count of 17,000 hemoglobin is 8.7 electrodes are normal renal profile is normal Patient was reevaluated today on 02/03/2021, patient seems to be comfortable, her daughter is at bedside, patient is on room air, and I had a chance today to discuss with the patient and her daughter her overall clinical picture, and strongly recommended comfort care measures and hospice. The daughter and the patient are both agreeable to this, and I believe the patient could be discharged home today. Objective - Vital Signs Vital signs: Vital Signs Temp 97.8 F 02/03/21 07:52 Pulse 116 H 02/03/21 07:52 Resp 16 02/03/21 07:52 BP 158/66 02/03/21 07:52 Pulse Ox 94 L 02/03/21 07:52 Intake & Output 02/02/21 02/03/21 02/03/21 18:59 06:59 18:59 Output Total 2 1 Balance -2 -1 Output: Stool 2 1 Other: Voiding Method Bedside Commode Bedside Commode Diaper Diaper # Voids 2 1 # Bowel Movements 1 1 - Exam Physical Exam: Revealed an 80-year-old female in no distress. On room air Head: Atraumatic, normocephalic. HEENT:[Neck is supple.] [No neck masses.] [No thyromegaly.] [No JVD.] Chest: [Crackles mostly at the right base, no rhonchi no wheezes. Cardiac Exam: [Normal S1 and S2, no S3 gallop, no murmur.] Abdomen: [Soft, nontender, no megaly, no rebound, no guarding, normal bowel sounds.] Extremities: [No clubbing, no edema, no cyanosis.] Neurological Exam: [No focal neurologic deficit.] Psychiatric: Normal mood affect and normal mental status examination. Skin: No rashes - Labs CBC & Chem 7: 02/02/21 05:34 02/03/21 05:57 Labs: Abnormal Lab Results - Last 24 Hours (Table) 02/02/21 02/03/21 Range/Units 06:02 05:57 Potassium 3.4 L (3.5-5.1) mmol/L Magnesium 1.4 L (1.5-2.4) mg/dL Assessment and Plan Assessment: Impression: Acute hypoxic respiratory failure secondary to acute right lower lobe pneumonia, and loculated right-sided pleural effusion, could be parapneumonic, doubt empyema. History of small cell lung cancer, presently undergoing chemotherapy. Hyponatremia most likely secondary to SIADH although hypovolemic hyponatremia is not entirely ruled out. Sodium today is 132. Presenting sodium was 122 Suspect some component of underlying COPD. Tobacco dependence syndrome. History of GERD. History of migraine cephalgia. Recommendation: Discussed with the patient and her daughter the different options and will agree to proceed with comfort care measures/hospice Prognosis is extremely poor. And will definitely not recommend back on chemotherapy Both seem to be agreeable to that decision. Patient will be discharged home today with comfort care measures Time with Patient: Less than 30
--- NOTE | 2021-02-03 14:30 | P.PN ---
Subjective Progress Note Date: 02/03/21 Principal diagnosis: pneumonia, small cell lung carcinoma Patient is sleeping well, family at bedside, hospice plans Objective - Vital Signs Vital signs: Vital Signs Temp 97.8 F 02/03/21 07:52 Pulse 116 H 02/03/21 07:52 Resp 16 02/03/21 07:52 BP 158/66 02/03/21 07:52 Pulse Ox 94 L 02/03/21 07:52 Intake & Output 02/02/21 02/03/21 02/03/21 18:59 06:59 18:59 Output Total 2 1 Balance -2 -1 Weight 58.06 kg Output: Stool 2 1 Other: Voiding Method Bedside Commode Bedside Commode Diaper Diaper # Voids 2 1 # Bowel Movements 1 1 - Exam No acute distress, resting in bed, respirations are even and unlabored when seen, patient is not very responsive to voice and touch - Labs CBC & Chem 7: 02/02/21 05:34 02/03/21 05:57 Labs: Abnormal Lab Results - Last 24 Hours (Table) 02/02/21 02/03/21 Range/Units 06:02 05:57 Potassium 3.4 L (3.5-5.1) mmol/L Magnesium 1.4 L (1.5-2.4) mg/dL Assessment and Plan (1) Pneumonia Status: Acute Priority: High Code(s): J18.9 - PNEUMONIA, UNSPECIFIED ORGANISM SNOMED Code(s): 336826817 (2) Small cell lung carcinoma Status: Acute Priority: High Code(s): C34.90 - MALIGNANT NEOPLASM OF UNSP PART OF UNSP BRONCHUS OR LUNG SNOMED Code(s): 946845156 Plan: Patient's condition has progressively worsened unfortunately. Family has decided on hospice care which is absolutely reasonable. Plan is to be discharged home with hospice. Agree with plan Doctor attests: I performed a history and physical examination of this patient, developed impression and plan of care. Discussed with dictator. I agree with dictators note, documented as a scribe.
== END 2021-02-03 14:04 | disposition hospice, home (50) | DRG 871 ==
LOC: EC 14:06 → 4SSUR 18:34 → 6NMEDSUR 01-27 20:52
PROVIDERS: ADMIT Family Medicine; ATTEND Family Medicine
DX: A41.9 Sepsis, unspecified organism (principal); J18.9 Pneumonia, unspecified organism; J69.0 Pneumonitis due to inhalation of food and vomit; J96.01 Acute respiratory failure with hypoxia; E22.2 Syndrome of inappropriate secretion of antidiuretic hormone; C34.90 Malignant neoplasm of unspecified part of unspecified bronchus or lung; C78.02 Secondary malignant neoplasm of left lung; J44.0 Chronic obstructive pulmonary disease with (acute) lower respiratory infection; J98.11 Atelectasis; J90 Pleural effusion, not elsewhere classified; K21.9 Gastro-esophageal reflux disease without esophagitis; F40.240 Claustrophobia; I10 Essential (primary) hypertension; E86.0 Dehydration; R13.13 Dysphagia, pharyngeal phase; E86.1 Hypovolemia; T45.1X5A Adverse effect of antineoplastic and immunosuppressive drugs, initial encounter; R53.81 Other malaise; D64.81 Anemia due to antineoplastic chemotherapy; E87.6 Hypokalemia; M15.9 Polyosteoarthritis, unspecified; H91.90 Unspecified hearing loss, unspecified ear; I48.91 Unspecified atrial fibrillation; D63.0 Anemia in neoplastic disease; Z20.822 Contact with and (suspected) exposure to COVID-19; Z96.1 Presence of intraocular lens; G43.909 Migraine, unspecified, not intractable, without status migrainosus; Z90.49 Acquired absence of other specified parts of digestive tract; Z90.710 Acquired absence of both cervix and uterus; Z90.89 Acquired absence of other organs; Z98.42 Cataract extraction status, left eye; Z98.41 Cataract extraction status, right eye; Z98.890 Other specified postprocedural states; Z87.891 Personal history of nicotine dependence; Z79.1 Long term (current) use of non-steroidal anti-inflammatories (NSAID); Z79.899 Other long term (current) drug therapy; Z88.1 Allergy status to other antibiotic agents; Z88.2 Allergy status to sulfonamides; Z85.820 Personal history of malignant melanoma of skin
CPT/HCPCS: 36415; 71045; 71260; 80048; 80053; 81001; 83605; 83735; 84132; 85025; 85610; 85730; 87040; 87070; 87086; 87205; 87635; 93005; 94760; 96360; 99284; 99285